=== PATIENT | female | born 1960 | race Caucasian/White ===

== ENCOUNTER 2019-07-09 14:12 | Emergency (ER) | payer MEDICAID, OTHER ==
[~2019-07-09] VITALS: Ht 157.5 cm; Wt 51.7 kg
[2019-07-09 14:24] VITALS: BP 112/89
[2019-07-09] MEDS ORDERED: NACL 0.9% 1,000 ML IV SCH (14:32)
--- NOTE | 2019-07-09 14:33 | NUR ---
59 Y/O F BIB [facility] FOR PAIN 02/23 WITH BILATERAL NEPHROSTOMY TUBE, ABDOMINAL PAIN, UTI DX AT [facility]. PT D/C YESTERDAY FROM [facility] FOR UTI, NEPHROSTOMY PLACEMENT. PT URINE IS DRAINING FROM NEPHROSTOMY TUBES, PT UNABLE TO GIVE UA. PT ON ABX FOR UTI. PT HAS A PORT-A-CATH RT CHEST FOR CHEMOTHERAPY TREATMENT. NKA HX: CERVICAL/LIVER/PELVIC CANCER. PORT-A-CATH RT CHEST.
[2019-07-09] MEDS ORDERED: KETOROLAC 30 MG/ML VIAL IVP ONE (14:35)
[2019-07-09 14:51] LABS: BASOPHILS # (AUTO) 0.1 K/uL (0.00-0.22); BASOPHILS % (AUTO) 0.8 % (0.0-2.0); EOSINOPHILS # (AUTO) 0.3 K/uL (0-0.4); EOSINOPHILS % (AUTO) 2.3 % (0.0-4.0); HEMOGLOBIN 10.9 g/dL (12.0-16.0); LYMPHOCYTES # (AUTO) 1.7 K/uL (2.5-16.5); LYMPHOCYTES % (AUTO) 15.2 % (20.5-51.1); MEAN CORPUSCULAR HEMOGLOBIN 29 pg (27-31); MEAN CORPUSCULAR HGB CONC 33 g/dL (33-37); MEAN CORPUSCULAR VOLUME 86.1 fL (80-94); MONOCYTES % (AUTO) 8.8 % (1.7-9.3); NEUTROPHILS # (AUTO) 8.2 K/uL (1.8-7.7); NEUTROPHILS % (AUTO) 72.9 % (42.2-75.2); PLATELET COUNT (AUTO) 313 K/uL (140-450); RED BLOOD CELL COUNT(AUTO) 3.83 MIL/uL (4.20-5.40); RED CELL DISTRIBUTION WIDTH 15.2 % (11.6-13.7); WHITE BLOOD COUNT (AUTO) 11.3 K/uL (4.8-10.8)
--- NOTE | 2019-07-09 14:57 | NUR ---
PT GIVEN MEDICATION FOR PAIN 02/23, VSS, RESTING COMFORTABLY, FRIEND AT BEDSIDE.
--- NOTE | 2019-07-09 15:06 | NUR ---
PT TO CT SCAN BY WHEELCHAIR.
[2019-07-09 15:18] LABS: ALBUMIN 2.9 g/dL (3.4-5.0); CARBON DIOXIDE 22.4 mmol/L (21-32); CREATININE 1.7 mg/dL (0.6-1.3); POTASSIUM 3.4 mmol/L (3.5-5.1); TOTAL BILIRUBIN 0.3 mg/dL (0.0-1.0)
--- NOTE | 2019-07-09 15:52 | NUR ---
PT TO X-RAY BY WHEELCHAIR
--- NOTE | 2019-07-09 16:28 | NUR ---
MD AT BEDSIDE EXAMINING PATIENT.
[2019-07-09 17:03] VITALS: BP 120/85
--- NOTE | 2019-07-09 17:03 | NUR ---
Patient discharged with v/s stable. Written and verbal after care instructions given and explained. Patient verbalized understanding. Ambulatory with steady gait. All questions addressed prior to discharge. Advised to follow up with PMD.
== END 2019-07-09 17:03 | disposition home or self-care (01) ==
LOC: MED 14:12
DX: R10.31 Right lower quadrant pain (principal); R10.32 Left lower quadrant pain; M54.9 Dorsalgia, unspecified; F17.200 Nicotine dependence, unspecified, uncomplicated; Z43.6 Encounter for attention to other artificial openings of urinary tract; Z98.890 Other specified postprocedural states; Z90.710 Acquired absence of both cervix and uterus; Z85.9 Personal history of malignant neoplasm, unspecified
CPT/HCPCS: 36415; 74176; 80053; 83690; 85025; 96361; 96374; 99284; J1885; J7030

== ENCOUNTER 2019-08-31 21:21 | Emergency (ER) | payer OTHER ==
[~2019-08-31] VITALS: Ht 157.5 cm; Wt 46.7 kg
--- NOTE | 2019-08-31 21:23 | NUR ---
PT KAYLYNN BLS. TAKEN TO BED 7
[2019-08-31 21:28] VITALS: BP 117/76
--- NOTE | 2019-08-31 21:33 | NUR ---
Dr. Newman examining patient.
--- NOTE | 2019-08-31 21:35 | NUR ---
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 PT HAS HX OF CERVICIAL CANCER. PT ALSO CO COUGH AND CONGESTION. LUNG SOUNDS CLEAR. ERMD AT BEDSIDE
[2019-08-31] MEDS ORDERED: KETOROLAC 30 MG/ML VIAL IM ONE (21:40)
--- NOTE | 2019-08-31 21:43 | NUR ---
X-Ray at bedside.
[2019-08-31 22:10] LABS: APPEARANCE,URINE CLEAR (CLEAR); BILIRUBIN,URINE NEGATIVE (NEGATIVE); BLOOD, URINE 3+ (NEGATIVE); COLOR,URINE YELLOW (YELLOW); LEUKOCYTE ESTERASE ,URINE 2+ (NEGATIVE); NITRITE, URINE NEGATIVE (NEGATIVE); UGLUCOSE NEGATIVE (NEGATIVE)
[2019-08-31 22:52] LABS: RBC,URINE TOO NUMEROUS TO COUN /HPF (0-5)
[2019-08-31 22:53] LABS: WBC,URINE TOO MANY TO COUNT /HPF (0-5)
[2019-08-31] MEDS ORDERED: NACL 0.9% 1,000 ML IV ONE (23:15)
[2019-08-31 23:35] LABS: BASOPHILS # (AUTO) 0.2 K/uL (0.00-0.22); BASOPHILS % (AUTO) 2.3 % (0.0-2.0); EOSINOPHILS # (AUTO) 1.1 K/uL (0-0.4); EOSINOPHILS % (AUTO) 12.7 % (0.0-4.0); HEMATOCRIT 27.6 % (36-48); HEMOGLOBIN 9.1 g/dL (12.0-16.0); LYMPHOCYTES # (AUTO) 1.8 K/uL (2.5-16.5); LYMPHOCYTES % (AUTO) 20.2 % (20.5-51.1); MEAN CORPUSCULAR HEMOGLOBIN 29 pg (27-31); MEAN CORPUSCULAR HGB CONC 33 g/dL (33-37); MEAN CORPUSCULAR VOLUME 88.5 fL (80-94); MONOCYTES # (AUTO) 0.8 K/uL (0.8-1.0); MONOCYTES % (AUTO) 9.1 % (1.7-9.3); NEUTROPHILS % (AUTO) 55.7 % (42.2-75.2); PLATELET COUNT (AUTO) 329 K/uL (140-450); RED BLOOD CELL COUNT(AUTO) 3.12 MIL/uL (4.20-5.40); RED CELL DISTRIBUTION WIDTH 15.5 % (11.6-13.7); WHITE BLOOD COUNT (AUTO) 8.9 K/uL (4.8-10.8)
[2019-08-31] MEDS ORDERED: cefTRIAXone 1,000 MG VIAL ONE (23:35)
[2019-08-31 23:50] LABS: ALBUMIN 2.6 g/dL (3.4-5.0); ANION GAP 11.5 (8-16); CARBON DIOXIDE 29.2 mmol/L (21-32); CREATININE 1.1 mg/dL (0.6-1.3); POTASSIUM 3.7 mmol/L (3.5-5.1); TOTAL BILIRUBIN 0.1 mg/dL (0.0-1.0)
[2019-09-01] MEDS ORDERED: MORPHINE SULFATE 4 MG/ML SYR IVP ONE (00:15)
[2019-09-01 00:56] VITALS: BP 110/73
--- NOTE | 2019-09-01 00:58 | NUR ---
Patient discharged with v/s stable. Written and verbal after care instructions given and explained. Patient alert, oriented and verbalized understanding of instructions. Ambulatory with steady gait. All questions addressed prior to discharge. ID band removed. Patient advised to follow up with PMD. Rx of KEFLEX, NAPROSYN AND NORCO given. Patient educated on indication of medication including possible reaction and side effects. Opportunity to ask questions provided and answered.
== END 2019-09-01 00:58 | disposition home or self-care (01) ==
LOC: MED 21:21
DX: N39.0 Urinary tract infection, site not specified (principal); Z85.41 Personal history of malignant neoplasm of cervix uteri; Z85.05 Personal history of malignant neoplasm of liver; Z98.890 Other specified postprocedural states
CPT/HCPCS: 36415; 71045; 80053; 81001; 83605; 85025; 87040; 87086; 96365; 96372; 96375; 99284; J0696; J1885; J2270; J7030; J7060; Q0092

== ENCOUNTER 2019-09-06 21:35 | Inpatient (IN) | payer OTHER ==
[~2019-09-06] VITALS: Ht 157.5 cm; Wt 46.7 kg
[2019-09-06 21:39] VITALS: BP 126/74
--- NOTE | 2019-09-06 21:45 | NUR ---
59 FEMALE COMPLAINS OF LOWER ABDOMINAL PAIN X 1 HOUR AGO. 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 PATIENT STATES NORCO 10MG AND IBUPROFEN 800MG DID NOT HELP 2 HOURS AGO. PATIENT STATES SYMPTOM STARTED AFTER HYSTERECTOMY PERFORMED AND SHE IS HAVING SCHEDULE WITH PRIMARY DOCTOR TO FIX HER DEFECATION FROM VAGINA. PATIENT HAS LEFT AND RIGHT NEPHROSTOMY BAGS WITH SITE GAUZE CLEAN AND DRY. PATIENT AOX4, BREATHING EVEN AND UNLABORED, SKIN WARM AND DRY. PATIENT ON BEDSIDE MONITOR, ERMD AWARE OF PT. PMH - BLADDER, PELVIC, LIVER CANCER ALLERGIES - NKA
--- NOTE | 2019-09-06 21:52 | NUR ---
Dr. De Los Santos examining patient.
[2019-09-06] MEDS ORDERED: NACL 0.9% 1,400 ML IV ONE (21:55)
[2019-09-06] MEDS ORDERED: LEVOFLOXACIN 500 MG/D5W PREMIX 100 ML IV ONE (21:55)
[2019-09-06 22:23] LABS: BASOPHILS # (AUTO) 0.2 K/uL (0.00-0.22); BASOPHILS % (AUTO) 1.8 % (0.0-2.0); EOSINOPHILS # (AUTO) 1.7 K/uL (0-0.4); EOSINOPHILS % (AUTO) 17.6 % (0.0-4.0); HEMOGLOBIN 8.3 g/dL (12.0-16.0); LYMPHOCYTES # (AUTO) 2.1 K/uL (2.5-16.5); LYMPHOCYTES % (AUTO) 21.1 % (20.5-51.1); MEAN CORPUSCULAR HEMOGLOBIN 30 pg (27-31); MEAN CORPUSCULAR HGB CONC 33 g/dL (33-37); MEAN CORPUSCULAR VOLUME 88.9 fL (80-94); MONOCYTES # (AUTO) 0.7 K/uL (0.8-1.0); MONOCYTES % (AUTO) 7.4 % (1.7-9.3); NEUTROPHILS # (AUTO) 5.2 K/uL (1.8-7.7); NEUTROPHILS % (AUTO) 52.1 % (42.2-75.2); PLATELET COUNT (AUTO) 357 K/uL (140-450); RED BLOOD CELL COUNT(AUTO) 2.82 MIL/uL (4.20-5.40); RED CELL DISTRIBUTION WIDTH 15.6 % (11.6-13.7); WHITE BLOOD COUNT (AUTO) 9.9 K/uL (4.8-10.8)
[2019-09-06 22:26] LABS: APPEARANCE,URINE CLOUDY (CLEAR); BILIRUBIN,URINE NEGATIVE (NEGATIVE); BLOOD, URINE 3+ (NEGATIVE); COLOR,URINE YELLOW (YELLOW); LEUKOCYTE ESTERASE ,URINE 2+ (NEGATIVE); NITRITE, URINE NEGATIVE (NEGATIVE); UGLUCOSE NEGATIVE (NEGATIVE)
[2019-09-06 22:40] LABS: ALBUMIN 2.5 g/dL (3.4-5.0); ANION GAP 11.9 (8-16); CARBON DIOXIDE 27.7 mmol/L (21-32); CREATININE 1.1 mg/dL (0.6-1.3); POTASSIUM 3.6 mmol/L (3.5-5.1)
[2019-09-06 22:41] LABS: TOTAL BILIRUBIN 0.1 mg/dL (0.0-1.0)
[2019-09-06 22:43] LABS: RBC,URINE TOO NUMEROUS TO COUN /HPF (0-5); WBC,URINE TOO MANY TO COUNT /HPF (0-5)
[2019-09-06] MEDS ORDERED: MORPHINE SULFATE 4 MG/ML SYR ONE (23:10)
[2019-09-06] MEDS ORDERED: ONDANSETRON 4 MG/2 ML VIAL IVP ONE (23:10)
[2019-09-06] MEDS ORDERED: MORPHINE SULFATE 4 MG/ML SYR IVP ONE (23:10)
[2019-09-06] MEDS ORDERED: cefTRIAXone 2,000 MG in DEXTROSE 5% 100 ML IV ONE (23:20)
--- NOTE | 2019-09-06 23:32 | NUR ---
DAIANA. PT REPORTS 7/10 PAIN.
--- NOTE | 2019-09-06 23:32 | NUR ---
PT AMBULATED TO BATHROOM, STEADY GAIT.
[2019-09-06] MEDS ORDERED: cefTRIAXone 2,000 MG VIAL ONE (23:35)
--- NOTE | 2019-09-06 23:37 | NUR ---
PT TAKEN TO CT VIA WHEELCHAIR.
--- NOTE | 2019-09-06 23:56 | NUR ---
PT RETURN FROM CT
--- NOTE | 2019-09-07 01:00 | NUR ---
PATIENT ALERT AND AWAKE, BREAHTING EVEN AND UNLABORED
[2019-09-07] MEDS ORDERED: HYDR-5092 PO (01:31)
[2019-09-07] MEDS ORDERED: IBUP-2213 PO (01:31)
--- NOTE | 2019-09-07 02:00 | NUR ---
PATIENT RESTING WITH EYES CLOSED, BREATHING EVEN AND UNLABORED
[2019-09-07] MEDS ORDERED: ONDANSETRON 4 MG/2 ML VIAL IVP PRN (02:40)
[2019-09-07] MEDS ORDERED: ACETAMINOPHEN 325 MG TAB PO PRN (02:40)
--- NOTE | 2019-09-07 03:00 | NUR ---
PATIENT RESTING WITH EYES CLOSED, BREATHING EVEN AND UNLABORED
--- NOTE | 2019-09-07 03:45 | NUR ---
Patient will be admitted to care of DR DANIELLE. Admited to [facility]. Will go to room 106B. Belongings list completed. Report to VIRA LOZANO.
--- NOTE | 2019-09-07 03:45 | NUR ---
RECEIVED PATIENT FROM ER VIA WHEELCHAIR. RESPIRATIONS EVEN, UNLABORED. IV SITE 20G NOTED TO LEFT AC PATENT/INTACT. BILATERAL NEPHROSTOMY NOTED. SKIN ASSESSMENT COMPLETED. MRSA SCREEN COMPLETED. PATIENT ORIENTED TO ROOM, STAFF AND CALL LIGHT. PATIENT C/O 9/10 ACHING ABDOMINAL PAIN. WILL MEDICATE ORDERED. NO S/SX ACUTE DISTRESS. CALL LIGHT WITHIN REACH. WILL CONTINUE TO MONITOR.
[2019-09-07] MEDS: NACL 0.9% 1,000 ML IV SCH ×2 (04:08→15:58)
[2019-09-07] MEDS: MORPHINE SULFATE 4 MG/ML SYR IVP PRN ×2 (04:13→10:56)
[2019-09-07] MEDS: metroNIDAZOLE 500 MG/NS PREMIX 100 ML IV SCH ×3 (04:13→20:40)
--- NOTE | 2019-09-07 04:13 | NUR ---
PATIENT C/O ACHING ABDOMINAL PAIN 02/23. MEDICATED ORDERED. PROVIDED A LOW STIMULI ENVIRONMENT. PATIENT REPOSITIONED FOR COMFORT. CALL LIGHT WITHIN REACH. WILL CONTINUE TO MONITOR.
[2019-09-07 04:23] VITALS: BP 116/67
--- NOTE | 2019-09-07 05:53 | NUR ---
PATIENT ASLEEP AND IN STABLE CONDITION. NO C/O PAIN. NO S/SX ACUTE DISTRESS. CALL LIGHT WITHIN REACH. WILL CONTINUE TO MONITOR.
--- NOTE | 2019-09-07 06:41 | NUR ---
MADE ROUNDS. PATIENT ASLEEP AND IN STABLE CONDITION. NO C/O PAIN. NO S/SX ACUTE DISTRESS. CALL LIGHT WITHIN REACH. WILL CONTINUE TO MONITOR.
--- NOTE | 2019-09-07 07:00 | NUR ---
RECEIVED PT. FROM [facility]ACKLER NURSECHINA. PT. IS AWAKE AND IN BED. NO SIGNS OF DISTRESS NOTED. IV LINE ON THE LEFT AC 20G WITH NS RUNNING AT 75ML/HR. IV SITE IS PATENT AND FLUSHES WELL. BILATERAL NEPHROSTOMY NOTED WITH CLOUDY YELLOW URINE OUTPUT, NEPHROSTOMY BAGS ATTACHED TO PT'S LEGS. PT. IS ON ROOM AIR WITH O2 STAT VALUE OF 99%. CALL LIGHT WITHIN REACH. POC DISCUSSED WITH PATIENT. WILL CONTINUE TO MONITOR.
--- NOTE | 2019-09-07 07:25 | NUR ---
ENDORSE PT. TO NURSE MIDWIFE NURSE, MEIR, FOR CONTINUITY OF CARE.
--- NOTE | 2019-09-07 07:26 | NUR ---
ENDORSED PATIENT IN STABLE CONDITION TO AM SHIFT NURSE FOR CONTINUITY OF CARE.
--- NOTE | 2019-09-07 08:42 | NUR ---
PATIENT HAS BEEN SCREENED AND CATEGORIZED MODERATE NUTRITION RISK. PATIENT WILL BE SEEN WITHIN 3-5 DAYS OF ADMISSION. 09/09/19 09/11/[address]
--- NOTE | 2019-09-07 10:50 | NUR ---
PT. COMPLAINS OF PAIN 10/10 FROM BACK. WILL MEDICATE WITH PRN MORPHINE IVP. WILL CONTINUE TO MONITOR.
--- NOTE | 2019-09-07 11:00 | NUR ---
MEDICATED PT. WITH MORPHINE IVP. BP 118/78 AND HR 74. WILL CONTINUE TO MONITOR.
--- NOTE | 2019-09-07 13:07 | NUR ---
Manager Enrollment Note: Basic Screen: Yes High Risk DC Screen Ophiem: DANDY Santamaria Relationship: SISTER Pre-Admission Living Arrangements: Lives with Other Prior ADL Independent Current Home Health Name/Tel: N/A Current DME/02 Name/Tel: N/A Current Hospice Name/Tel: N/A Current Dialysis Name/Tel: N/A Healthcare Decision Maker: Patient Advance Directive No Physician Orders for Life Sustaining Treatment Form No Patient/Family Have Educational Needs No Information Taught: Community Resources Person Taught: Patient Teaching Tools: Verbal Factors Affecting Learning: None Participation Level: Active Evaluation: Verbalizes Understanding Needs Additional Education: No Discipline: Case Mgt/Social Svcs Tentative Discharge Plan/Destination: No Needs Identified Will require assistance post discharge: No Referred to Repeater Operator: No Tentative Discharge Plan Summary: Patient is a 59-year-old female admitted for UTI. PAtient has PMHX of cancer (cervical, pelvic, and liver). Patient was admitted from home where she lives with her mother and sisters. Patient reported that her sisters assist her cooking, dressing herself, and showering. Patient stated she is in the process of applying for IHSS. Patient reports no history of substance abuse, and no history of mental health. SW inquired about PMHX of cancer, and patient stated that her oncologist is Dr. Morales. Patient's tenative discharge plan is to return home. No further needs identified. Signature: FRANCES Gibbs Date: Sep 07, 2019 Time: 13:06
--- NOTE | 2019-09-07 15:27 | NUR ---
DC PLANNIN YRS OLD FEMALE PATIENT WAS ADMITTED FROM HOME WITH A DX OF UTI AND PROCTITIS. 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 STARTED IV FLAGYL, IV LEVAQUIN, IVF, AND PAIN CONTROL. BLOOD AND URINE CULTURE PENDING. PT HAS OUTPATIENT PET/CT FOR ROPE CLEANER PLANNING PENDING FOR THIS Friday. DC PLAN TO GO HOME WHEN STABLE. PT HAS PCP DR JOSESITO CHAN [phone] LATONIA ALEXANDER [phone] F/U APPOINTMENT WILL BE MADE WITH SUPERVISOR TELEVISION CHASSIS REPAIR . CM TO FOLLOW
[2019-09-07 16:00] VITALS: BP 94/50
--- NOTE | 2019-09-07 18:00 | NUR ---
PT. COMPLAINS OF PAIN 6/10 FROM HER BACK RADIATING TO HER ABDOMEN. WILL MEDICATE WITH NORCO PO. WILL CONTINUE TO MONITOR.
[2019-09-07] MEDS: HYDROcodone/APAP 10/325 MG 1 TAB TAB PO PRN ×2 (18:10→21:55)
--- NOTE | 2019-09-07 18:10 | NUR ---
NORCO PRN PO GIVEN. BP 107/64, HR 74. NO SIGNS OF DISTRESS NOTED. WILL CONTINUE TO MONITOR.
--- NOTE | 2019-09-07 19:10 | NUR ---
RECD. RESTING IN BED, AWAKE, A/OX4. RESPIRATION EVEN AND UNLABORED. IV OF NS AT 75 ML/HR INFUSING, LEFT AC G20. WITH NEPHROSTOMY TUBE DRAINING MINIMAL AMOUNT OF YELLOW URINE. SAFETY MEASURES ENFORCED. BED IN THE LOWEST POSITION, CALL LIGHT IN REACH. PLAN OF CARE FOR THE SHIFT DISCUSSED. VERBALIZED UNDERSTANDING. DENIES PAIN 0/10.
--- NOTE | 2019-09-07 19:25 | NUR ---
Patient's Plan of Care was discussed and reviewed with KARISSA: MEIR. WILL CONTINUE TO MONITOR.
[2019-09-07 20:00] VITALS: BP 94/54
--- NOTE | 2019-09-07 20:40 | NUR ---
ROBYN FLAGYL NOW INFUSING PER ORDERS. ALL SAFETY MEASURES ARE IN PLACE. WILL CONTINUE TO MONITOR.
--- NOTE | 2019-09-07 21:00 | NUR ---
WANTS MORPHINE BUT BP IS IN THE LOW SIDE, 94/54. PILLOWS GIVEN FOR COMFORT, REPOSITIONED. WILL CALL MD FOR ANOTHER PAIN MEDICATION THAT WILL NOT LOWER BP.
--- NOTE | 2019-09-07 21:20 | NUR ---
INFORMED DR. KAISER PATIENT PO PAIN MED IS NOT YET DUE, IF HE CAN ORDER ANOTHER IV PAIN MEDICATION. STATED PATIENT HAS KIDNEY PROBLEM AND HE CANNOT ORDER ANOTHER.
--- NOTE | 2019-09-07 23:00 | NUR ---
RESTING COMFORTABLY IN BED, NO COMPLAINT OF PAIN AFTER ONE HOUR, MEDICATION OF NORCO GIVEN.
[2019-09-08] VITALS: BP 102/52
--- NOTE | 2019-09-08 | NUR ---
SLEEPING COMFORTABLY IN BED.
[2019-09-08] MEDS: NACL 0.9% 1,000 ML IV SCH ×2 (01:03→05:18)
--- NOTE | 2019-09-08 02:00 | NUR ---
ASSISTED OUT OF BED TO GO TO [facility] TO HAVE BM. HAD SMALL AMOUNT OF FORMED BM.
--- NOTE | 2019-09-08 04:00 | NUR ---
OFFERED JOSE BUT STATED SHE IS STILL OK. WENT BACK TO SLEEP.
[2019-09-08] MEDS: metroNIDAZOLE 500 MG/NS PREMIX 100 ML IV SCH (04:35)
--- NOTE | 2019-09-08 07:00 | NUR ---
CONDITION REMAIN STABLE. WILL ENDORSED TO AM SHIFT NURSE FOR CONTINUITY OF CARE.
--- NOTE | 2019-09-08 07:01 | NUR ---
RECEIVED REPORT FROM PICTURE HANGER NURSE, MEIR. PT IS RESTING IN BED, AROUSABLE TO VOICE. A&Ox 4. RESPIRATIONS ARE EVEN AND UNLABORED, BREATHING TO ROOM AIR. IV IS PATENT AND INTACT, AND INFUSING PER MD ORDERS. SKIN IS INTACT. REVIEWED PLAN OF CARE WITH PATIENT. NO DISTRESS NOTED. SAFETY MEASURES IN PLACE; BED IN LOW POSITION, CALL LIGHT WITHIN REACH. WILL CONTINUE TO MONITOR.
[2019-09-08 07:42] LABS: ANION GAP 10.6 (8-16); CREATININE 0.9 mg/dL (0.6-1.3); POTASSIUM 3.6 mmol/L (3.5-5.1)
[2019-09-08 07:44] LABS: HEMATOCRIT 25.1 % (36-48); HEMOGLOBIN 8.3 g/dL (12.0-16.0); MEAN CORPUSCULAR HEMOGLOBIN 30 pg (27-31); MEAN CORPUSCULAR HGB CONC 33 g/dL (33-37); MEAN CORPUSCULAR VOLUME 89.1 fL (80-94); PLATELET COUNT (AUTO) 358 K/uL (140-450); RED BLOOD CELL COUNT(AUTO) 2.82 MIL/uL (4.20-5.40); RED CELL DISTRIBUTION WIDTH 15.2 % (11.6-13.7); WHITE BLOOD COUNT (AUTO) 7.8 K/uL (4.8-10.8)
[2019-09-08 07:58] LABS: MAGNESIUM 1.5 mg/dL (1.8-2.4); PHOSPHORUS 3.7 mg/dL (2.5-4.9)
[2019-09-08 08:00] VITALS: BP 100/54
--- NOTE | 2019-09-08 09:00 | NUR ---
PT IS IN BED RESTING IN BED. NO DISTRESS NOTED. PT COMPLAINS OF PAIN ONLY WHEN WE WALK INTO THE ROOM. PT COMPLAINS OF LOWER ABDOMINAL PAIN. PT'S BLOOD PRESSURE IS LOW. PT WANTS MORPHINE. NO DISTRESS NOTED. WILL CONTINUE TO MONITOR. CALL LIGHT IN REACH.
[2019-09-08 09:13] LABS: EOSINOPHILS % (MANUAL) 18 % (0-4); LYMPHOCYTES % (MANUAL) 12 % (20-46); MONOCYTES % (MANUAL) 6 % (5-12)
[2019-09-08] MEDS ORDERED: MAG SULF 2000 MG/WATER PREMIX 50 ML IV SCH (10:31)
[2019-09-08] MEDS ORDERED: MIDODRINE 5 MG TAB PO SCH (10:31)
--- NOTE | 2019-09-08 11:23 | NUR ---
PCP Appointment: LO contacted Dr. Ethan Hassan's office and spoke to Lyn [phone]. Per Lyn, clinic will contact patient on 09/09/2019 to schedule appointment. LO also contacted oncologist Dr. Mian Stevenson on 09/16/2019 at 1130 @ [facility] [address] Do[address]. [address] [place] [id number].
--- NOTE | 2019-09-08 11:30 | NUR ---
PT IS AWAKE AND SITTING UP IN BED. NO DISTRESS NOTED. SAFETY MEASURES IN PLACE; CALL LIGHT WITHIN REACH, BED IN LOW POSITION. WILL CONTINUE TO MONITOR.
[2019-09-08] MEDS ORDERED: CIPR500T4 PO (11:58)
[2019-09-08] MEDS ORDERED: METR250T2 PO (11:58)
[2019-09-08] MEDS: HYDROcodone/APAP 10/325 MG 1 TAB TAB PO PRN (13:25)
--- NOTE | 2019-09-08 15:02 | NUR ---
GAVE PT DISCHARGE INSTRUCTIONS, PT VERBALIZED UNDERSTANDING. PT TO FOLLOW UP WITH PCP, INFLUENZA AND PNEUMOCOCCAL VACCINE TO BE GIVEN AT PCP VISIT. IV WAS REMOVED, CATHETER INTACT. ARM BANDS REMOVED. PT CALLED SISTER FOR PICKUP. PT WAS TAKEN IN A WHEELCHAIR TO HER CAR. PT COMPLAINED OF ABDOMINAL PAIN, WANTED PAIN MEDICATION. NORCO GIVEN. PT DID NOT WANT TO STAY FOR PAIN REEVALUATION. MEDICATION INSTRUCTIONS WERE GIVEN. PT'S BELONGINGS WERE WITH HER. PT STABLE AT DISCHARGE. PRESCRIPTION GIVEN TO PT.
[2019-09-08] MEDS ORDERED: LEVOFLOXACIN 750 MG/D5W PREMIX 150 ML IV SCH (23:00)
== END 2019-09-08 13:50 | disposition home or self-care (01) | DRG 463 ==
LOC: MED 21:35 → MTU 09-07 02:42
PROVIDERS: ADMIT Internal Medicine Pulmonary Disease; ATTEND Internal Medicine Pulmonary Disease
DX: N39.0 Urinary tract infection, site not specified (principal); E44.0 Moderate protein-calorie malnutrition; N82.3 Fistula of vagina to large intestine; F17.210 Nicotine dependence, cigarettes, uncomplicated; R73.9 Hyperglycemia, unspecified; Z68.1 Body mass index [BMI] 19.9 or less, adult; Z85.05 Personal history of malignant neoplasm of liver; Z85.41 Personal history of malignant neoplasm of cervix uteri; Z85.53 Personal history of malignant neoplasm of renal pelvis; Z90.710 Acquired absence of both cervix and uterus
CPT/HCPCS: 36415; 80048; 80053; 81001; 83735; 84100; 85025; 87040; 87081; 87086; 96365; 96375; 99285; J0696; J1956; J2270; J2405; J3475; J3490; J7030; Q9967

== ENCOUNTER 2019-10-05 20:17 | Emergency (ER) | payer OTHER ==
[~2019-10-05] VITALS: Ht 157.5 cm; Wt 48.1 kg
[~2019-10-05 20:17] MED LIST: CIPR500T4 PO; HYDR-5092 PO; IBUP-2213 PO; METR250T2 PO
[2019-10-05 20:19] VITALS: BP 118/75
--- NOTE | 2019-10-05 20:33 | NUR ---
PT TAKEN TO BED 11
--- NOTE | 2019-10-05 20:53 | NUR ---
59 YO FEMALE NEEDS DRESSING CHANGE FOR HER KIDNEY TUBES THAT WERE PLACED IN JUL 2019. PT STATES THAT SHE HAS NO PAIN, SISTER DID NOTICE SOME PUS ON THE RIGHT SIDE BUT DID NOT LOOK AT THE RIGHT SIDE. NO REDNESS OR TENDERNESS. PT HAD A NURSE THAT CAME TO [facility] DRESSINGS BUT SHE NO LONGER COMES. PT HAS EXTENSIVE CANCER HISTORY. PT TAKING NORCO AT THIS TIME.
--- NOTE | 2019-10-05 20:56 | NUR ---
Dr. Newman examining patient.
--- NOTE | 2019-10-05 21:14 | NUR ---
PTS WOUNDS WERE CLEANED WITH NS. DRESSING WAS CHANGED TO NON ADHERENT GAUZE AND TAPPED ON ALL 4 SIDES. PT DENIED ANY DISCOMFORT
[2019-10-05 21:39] LABS: BILIRUBIN,URINE 1+ (NEGATIVE); BLOOD, URINE 3+ (NEGATIVE); COLOR,URINE YELLOW (YELLOW); LEUKOCYTE ESTERASE ,URINE 2+ (NEGATIVE); NITRITE, URINE NEGATIVE (NEGATIVE); UGLUCOSE NEGATIVE (NEGATIVE)
[2019-10-05 21:40] LABS: APPEARANCE,URINE HAZY (CLEAR)
[2019-10-05 22:13] LABS: RBC,URINE 11-20 (MOD) /HPF (0-5); WBC,URINE TOO MANY TO COUNT /HPF (0-5)
[2019-10-05 22:19] VITALS: BP 119/72
== END 2019-10-05 22:18 | disposition home or self-care (01) ==
LOC: MED 20:17
DX: N39.0 Urinary tract infection, site not specified (principal); C76.0 Malignant neoplasm of head, face and neck; C76.3 Malignant neoplasm of pelvis; C22.8 Malignant neoplasm of liver, primary, unspecified as to type; F17.210 Nicotine dependence, cigarettes, uncomplicated; Z48.00 Encounter for change or removal of nonsurgical wound dressing; Z08 Encounter for follow-up examination after completed treatment for malignant neoplasm; Z93.6 Other artificial openings of urinary tract status; Z90.710 Acquired absence of both cervix and uterus; Z98.890 Other specified postprocedural states; Z79.899 Other long term (current) drug therapy
CPT/HCPCS: 81001; 87086; 87186; 99283

== ENCOUNTER 2020-01-17 00:55 | Emergency (ER) | payer OTHER ==
[~2020-01-17] VITALS: Ht 157.5 cm; Wt 47.2 kg
[2020-01-17 01:14] VITALS: BP 113/70
[2020-01-17 02:21] VITALS: BP 113/70
== END 2020-01-17 02:15 | disposition home or self-care (01) ==
LOC: MED 00:55
DX: N99.522 Malfunction of incontinent external stoma of urinary tract (principal); Z98.890 Other specified postprocedural states; Z79.899 Other long term (current) drug therapy; Z85.41 Personal history of malignant neoplasm of cervix uteri; Z85.05 Personal history of malignant neoplasm of liver
CPT/HCPCS: 99281

== ENCOUNTER 2020-02-01 13:12 | Emergency (ER) | payer OTHER ==
[~2020-02-01] VITALS: Ht 165.1 cm; Wt 46.7 kg
[2020-02-01 13:27] VITALS: BP_SYST 113; BP_DIAS 7; BP_DIAS 70
[2020-02-01 15:37] LABS: BASOPHILS # (AUTO) 0.2 K/uL (0.00-0.22); BASOPHILS % (AUTO) 2.3 % (0.0-2.0); EOSINOPHILS % (AUTO) 12.6 % (0.0-4.0); HEMATOCRIT 27.5 % (36-48); HEMOGLOBIN 8.8 g/dL (12.0-16.0); LYMPHOCYTES # (AUTO) 1.8 K/uL (2.5-16.5); LYMPHOCYTES % (AUTO) 22.7 % (20.5-51.1); MEAN CORPUSCULAR HEMOGLOBIN 27 pg (27-31); MEAN CORPUSCULAR HGB CONC 32 g/dL (33-37); MEAN CORPUSCULAR VOLUME 85.3 fL (80-94); MONOCYTES # (AUTO) 0.5 K/uL (0.8-1.0); MONOCYTES % (AUTO) 7.1 % (1.7-9.3); NEUTROPHILS # (AUTO) 4.3 K/uL (1.8-7.7); NEUTROPHILS % (AUTO) 55.3 % (42.2-75.2); PLATELET COUNT (AUTO) 342 K/uL (140-450); RED BLOOD CELL COUNT(AUTO) 3.23 MIL/uL (4.20-5.40); RED CELL DISTRIBUTION WIDTH 16.8 % (11.6-13.7); WHITE BLOOD COUNT (AUTO) 7.8 K/uL (4.8-10.8)
[2020-02-01 15:39] LABS: APPEARANCE,URINE CLOUDY (CLEAR); BILIRUBIN,URINE NEGATIVE (NEGATIVE); BLOOD, URINE 3+ (NEGATIVE); COLOR,URINE YELLOW (YELLOW); LEUKOCYTE ESTERASE ,URINE 3+ (NEGATIVE); NITRITE, URINE POSITIVE (NEGATIVE); UGLUCOSE NEGATIVE (NEGATIVE)
[2020-02-01] MEDS ORDERED: MORPHINE SULFATE 4 MG/ML SYR IVP ONE (15:55)
[2020-02-01 16:00] LABS: ALBUMIN 2.7 g/dL (3.4-5.0); ANION GAP 12.2 (8-16); CARBON DIOXIDE 27.2 mmol/L (21-32); POTASSIUM 3.4 mmol/L (3.5-5.1); TOTAL BILIRUBIN 0.2 mg/dL (0.0-1.0)
[2020-02-01 16:28] LABS: RBC,URINE 20-50 /HPF (0-5); WBC,URINE 60-80 /HPF (0-5)
[2020-02-01 16:52] VITALS: BP 113/70
== END 2020-02-01 16:53 | disposition home or self-care (01) ==
LOC: MED 13:12
DX: R10.30 Lower abdominal pain, unspecified (principal); Z02.89 Encounter for other administrative examinations
CPT/HCPCS: 36415; 80053; 81001; 85025; 87086; 96374; 99283; J2270

== ENCOUNTER 2020-03-04 16:05 | Emergency (ER) | payer OTHER ==
[~2020-03-04] VITALS: Ht 157.5 cm; Wt 47.2 kg
[2020-03-04 16:16] VITALS: BP 94/61
--- NOTE | 2020-03-04 16:19 | NUR ---
PT AMB TO BED 6
[2020-03-04] MEDS ORDERED: MORPHINE SULFATE 4 MG/ML SYR IVP STA (16:21)
[2020-03-04] MEDS ORDERED: ONDANSETRON 4 MG/2 ML VIAL IVP STA (16:21)
[2020-03-04] MEDS ORDERED: NACL 0.9% 1,000 ML IV STA (16:21)
--- NOTE | 2020-03-04 16:34 | NUR ---
C/O VAGINAL BLEEDING , N/V, LOWER ABDOMINAL PAIN.PT AOX4 , AFIBRILE , AMBULATORY WITH STEADY GAIT , PINK PALPEBRAL CONJUNCTIVA ,ANICTERIC SCLERA , SCE , FLAT SOFT ABDOMEN WITH BILATERAL NEPHROSTOMY TUBE DRAINING IN NEPHRO BAG WITH CLOUDY URINE. MED HX: PELVIC CANCER, CERVICAL CANCER, STEVE NEPHROSTOMY
[2020-03-04 16:50] LABS: BASOPHILS # (AUTO) 0.1 K/uL (0.00-0.22); EOSINOPHILS # (AUTO) 0.5 K/uL (0-0.4); EOSINOPHILS % (AUTO) 5.5 % (0.0-4.0); HEMATOCRIT 30.7 % (36-48); HEMOGLOBIN 10.2 g/dL (12.0-16.0); LYMPHOCYTES # (AUTO) 1.8 K/uL (2.5-16.5); LYMPHOCYTES % (AUTO) 20.9 % (20.5-51.1); MEAN CORPUSCULAR HEMOGLOBIN 28 pg (27-31); MEAN CORPUSCULAR HGB CONC 33 g/dL (33-37); MEAN CORPUSCULAR VOLUME 85.1 fL (80-94); MONOCYTES # (AUTO) 0.6 K/uL (0.8-1.0); MONOCYTES % (AUTO) 7.4 % (1.7-9.3); NEUTROPHILS # (AUTO) 5.7 K/uL (1.8-7.7); NEUTROPHILS % (AUTO) 65.2 % (42.2-75.2); PLATELET COUNT (AUTO) 351 K/uL (140-450); RED CELL DISTRIBUTION WIDTH 16.6 % (11.6-13.7); WHITE BLOOD COUNT (AUTO) 8.7 K/uL (4.8-10.8)
[2020-03-04 17:01] LABS: PROTHROMBIN TIME 9.6 secs (10.8-13.4)
[2020-03-04 17:04] LABS: ALBUMIN 2.5 g/dL (3.4-5.0); ANION GAP 13.7 (8-16); CARBON DIOXIDE 24.4 mmol/L (21-32); CREATININE 1.1 mg/dL (0.6-1.3); POTASSIUM 3.1 mmol/L (3.5-5.1); TOTAL BILIRUBIN 0.2 mg/dL (0.0-1.0)
[2020-03-04 17:26] LABS: APPEARANCE,URINE CLOUDY (CLEAR); COLOR,URINE YELLOW (YELLOW)
[2020-03-04 17:27] LABS: BILIRUBIN,URINE NEGATIVE (NEGATIVE); BLOOD, URINE 3+ (NEGATIVE); LEUKOCYTE ESTERASE ,URINE 3+ (NEGATIVE); NITRITE, URINE POSITIVE (NEGATIVE); UGLUCOSE NEGATIVE (NEGATIVE)
[2020-03-04 17:30] LABS: RBC,URINE 20-50 /HPF (0-5)
[2020-03-04 17:31] LABS: WBC,URINE 80-100 /HPF (0-5)
--- NOTE | 2020-03-04 17:54 | NUR ---
PT COMFORTABLE IN BED SIDE RAILS UP AND LOCK.
--- NOTE | 2020-03-04 18:00 | NUR ---
DR SANTORO AT BEDSIDE REEVALUATING PT.
[2020-03-04 18:27] VITALS: BP 110/61
--- NOTE | 2020-03-04 18:29 | NUR ---
Patient discharged with v/s stable. Written and verbal after care instructions given and explained regarding uti. Patient alert, oriented and verbalized understanding of instructions. Ambulatory with steady gait. All questions addressed prior to discharge. ID band removed. Patient advised to follow up with PMD. Rx of ciprofloxacin given. Patient educated on indication of medication including possible reaction and side effects. Opportunity to ask questions provided and answered.
== END 2020-03-04 18:29 | disposition home or self-care (01) ==
LOC: MED 16:05
DX: N39.0 Urinary tract infection, site not specified (principal); D53.9 Nutritional anemia, unspecified; Z85.41 Personal history of malignant neoplasm of cervix uteri; Z51.11 Encounter for antineoplastic chemotherapy
CPT/HCPCS: 36415; 80053; 81001; 83690; 85025; 85610; 87086; 96361; 96374; 96375; 99284; J2270; J2405; J7030; 87186

== ENCOUNTER 2020-05-19 12:51 | Emergency (ER) | payer OTHER, SELFPAY ==
[~2020-05-19] VITALS: Ht 157.5 cm; Wt 50.3 kg
[~2020-05-19 12:51] MED LIST changes: +METR-520 PO; -METR250T2 PO
[2020-05-19 13:05] VITALS: BP 128/75
--- NOTE | 2020-05-19 13:12 | NUR ---
C/O COUGH, RUNNY NOSE, BODY ACHE X 3 DAYS. BROTHER IN LAW HAD COVID TESTED +. PMH: CEVICAL CANCER & SERGERYX TWICE, HYSTERECTOMY
--- NOTE | 2020-05-19 13:40 | NUR ---
COVID SWAB COLLECTED, SENT TO LAB.
[2020-05-19 13:46] VITALS: BP 128/75
--- NOTE | 2020-05-19 13:46 | NUR ---
Patient discharged with v/s stable. Written and verbal after care instructions given and explained. Patient alert, oriented and verbalized understanding of instructions. Ambulatory with steady gait. All questions addressed prior to discharge. ID band removed. Patient advised to follow up with PMD. Rx of ALBUTEROL, IBUPROFEN & PROMETHAZINE given. Patient educated on indication of medication including possible reaction and side effects. Opportunity to ask questions provided and answered.
== END 2020-05-19 13:46 | disposition home or self-care (01) ==
LOC: MED 12:51
DX: R05 Cough (principal); M79.10 Myalgia, unspecified site; R09.89 Other specified symptoms and signs involving the circulatory and respiratory systems; Z20.828 Contact with and (suspected) exposure to other viral communicable diseases; Z85.9 Personal history of malignant neoplasm, unspecified; Z79.899 Other long term (current) drug therapy
CPT/HCPCS: 99283; U0003

== ENCOUNTER 2020-10-28 05:53 | Emergency (ER) | payer OTHER, SELFPAY ==
[~2020-10-28] VITALS: Ht 157.5 cm; Wt 47.6 kg
[~2020-10-28 05:53] MED LIST changes: +ACET-9525 PO; +CEPH500C16 PO; -CIPR500T4 PO; -HYDR-5092 PO; -IBUP-2213 PO; -METR-520 PO
[2020-10-28 05:58] VITALS: BP 116/75
--- NOTE | 2020-10-28 06:06 | NUR ---
PATIENT AMBULATED TO RESTROOM WITH STEADY GAIT.
--- NOTE | 2020-10-28 06:11 | NUR ---
PATIENT BIB SELF FOR 10/10 SUPRAPUBIC/PELVIC PAIN X 2 DAYS. PATIENT REPORTS SHE HAS A DX OF PELVIC CANCER X 2 YEARS NOW AND IS CURRENTLY RECIEVING CHEMOTHERAPY, LAST ADMINISTERED 10/25/20. PATIENT REPORTS DIARRHEA. PATIENT DENIES FEVER, CHILLS, N/V. PATIENT ALSO NOTED WITH BILATERAL NEPHROSTOMY TUBES X 4 MONTHS. PATIENT REPORTS THIS PAIN IS NOT NEW AND IS TYPICALLY RELATED TO HER PELVIC CANCER. LAST BM 10/27/20. PATIENT REPORTS SHE HAS NOT BEEN ABLE TO GET HER PAIN MEDICATION LATELY. SEE COMPLETE ASSESSMENT FOR FURTHER DETAILS. MED HX: PELVIC CANCER ALLERGIES: NKA
--- NOTE | 2020-10-28 06:26 | NUR ---
ERMD AT BEDSIDE.
[2020-10-28] MEDS ORDERED: MORPHINE SULFATE 4 MG/ML SYR IM ONE (06:30)
[2020-10-28] MEDS ORDERED: ONDANSETRON 4 MG ODT PO ONE (06:30)
[2020-10-28] MEDS ORDERED: CEPH-588 PO (06:34)
[2020-10-28] MEDS ORDERED: cephALEXin 500 MG CAP PO ONE (06:35)
[2020-10-28 07:02] VITALS: BP 116/75
== END 2020-10-28 07:02 | disposition home or self-care (01) ==
LOC: MED 05:53
DX: N39.0 Urinary tract infection, site not specified (principal); G89.29 Other chronic pain; R10.2 Pelvic and perineal pain; Z85.53 Personal history of malignant neoplasm of renal pelvis
CPT/HCPCS: 81002; 96372; 99283; J2270; Q0162

== ENCOUNTER 2020-11-06 03:05 | Emergency (ER) | payer OTHER, SELFPAY ==
[~2020-11-06] VITALS: Ht 160 cm; Wt 50.3 kg
[~2020-11-06 03:05] MED LIST changes: +CEPH-588 PO
[2020-11-06 03:26] VITALS: BP 110/72
--- NOTE | 2020-11-06 03:35 | NUR ---
PATIENT BIB SELF FOR C/O 10/10 LOWER PELVIC PAIN AND URINARY BURNING X 3 DAYS. PATIENT REPORTS HAVING DISCHARGE THAT IS DARK BROWN AND HAS BURNING IN THE VAGINA. PATIENT TOOK NORCO AT 2100 BUT WITH NO RELIEF. PMH: CERVICAL CANCER, UTI, HYSTERECTOMY ALLERGIES: NKA
--- NOTE | 2020-11-06 03:36 | NUR ---
ERMD at bedside for examination
[2020-11-06] MEDS ORDERED: ONDANSETRON 4 MG/2 ML VIAL IVP ONE (03:45)
[2020-11-06] MEDS ORDERED: NACL 0.9% 500 ML IV ONE (03:45)
[2020-11-06] MEDS ORDERED: MORPHINE SULFATE 4 MG/ML SYR IVP ONE (03:45)
[2020-11-06 04:02] LABS: HEMOGLOBIN 8.4 g/dL (12.0-16.0); RED CELL DISTRIBUTION WIDTH 17.2 % (11.6-13.7); WHITE BLOOD COUNT (AUTO) 8.8 K/uL (4.8-10.8)
[2020-11-06 04:06] LABS: BASOPHILS # (AUTO) 0.1 K/uL (0.00-0.22); BASOPHILS % (AUTO) 0.8 % (0.0-2.0); EOSINOPHILS # (AUTO) 0.6 K/uL (0-0.4); EOSINOPHILS % (AUTO) 6.5 % (0.0-4.0); HEMATOCRIT 25.2 % (36-48); LYMPHOCYTES # (AUTO) 2.1 K/uL (2.5-16.5); LYMPHOCYTES % (AUTO) 23.5 % (20.5-51.1); MEAN CORPUSCULAR HEMOGLOBIN 27 pg (27-31); MEAN CORPUSCULAR HGB CONC 34 g/dL (33-37); MEAN CORPUSCULAR VOLUME 79.3 fL (80-94); MONOCYTES # (AUTO) 0.7 K/uL (0.8-1.0); MONOCYTES % (AUTO) 8.2 % (1.7-9.3); NEUTROPHILS # (AUTO) 5.4 K/uL (1.8-7.7); PLATELET COUNT (AUTO) 403 K/uL (140-450); RED BLOOD CELL COUNT(AUTO) 3.18 MIL/uL (4.20-5.40)
[2020-11-06 04:23] LABS: ALBUMIN 2.6 g/dL (3.4-5.0); ANION GAP 10.2 (8-16); CARBON DIOXIDE 28.3 mmol/L (21-32); POTASSIUM 3.5 mmol/L (3.5-5.1); TOTAL BILIRUBIN 0.1 mg/dL (0.0-1.0)
[2020-11-06] MEDS ORDERED: SULF-58 PO (04:42)
[2020-11-06 04:53] VITALS: BP 115/69
--- NOTE | 2020-11-06 04:53 | NUR ---
Patient discharged with v/s stable. Written and verbal after care instructions given and explained. Patient alert, oriented and verbalized understanding of instructions. Ambulatory with steady gait. All questions addressed prior to discharge. ID band removed. Patient advised to follow up with PMD. Rx of bactrim 400-80mg tab given. Patient educated on indication of medication including possible reaction and side effects. Opportunity to ask questions provided and answered.
[2020-11-06 05:55] LABS: APPEARANCE,URINE CLOUDY (CLEAR); BILIRUBIN,URINE NEGATIVE (NEGATIVE); BLOOD, URINE NEGATIVE (NEGATIVE); COLOR,URINE YELLOW (YELLOW); LEUKOCYTE ESTERASE ,URINE 3+ (NEGATIVE); NITRITE, URINE NEGATIVE (NEGATIVE); PH,URINE >=9.0 (5.0-9.0); UGLUCOSE NEGATIVE (NEGATIVE)
[2020-11-06 06:04] LABS: RBC,URINE 0-5 /HPF (0-5)
[2020-11-06 06:05] LABS: WBC,URINE 20-60 /HPF (0-5)
== END 2020-11-06 04:53 | disposition home or self-care (01) ==
LOC: MED 03:05
DX: N39.0 Urinary tract infection, site not specified (principal); R10.2 Pelvic and perineal pain; Z85.42 Personal history of malignant neoplasm of other parts of uterus; Z90.710 Acquired absence of both cervix and uterus
CPT/HCPCS: 36415; 80053; 81001; 85025; 87086; 87186; 96361; 96374; 96375; 99284; J2270; J2405; J7030

== ENCOUNTER 2020-11-16 20:55 | Emergency (ER) | payer OTHER ==
[~2020-11-16] VITALS: Ht 160 cm; Wt 49.4 kg
[~2020-11-16 20:55] MED LIST changes: +SULF-58 PO
[2020-11-16 21:08] VITALS: BP 127/78
--- NOTE | 2020-11-16 21:10 | NUR ---
PT BIB SELF FOR C/O PELVIC PAIN X 3 DAYS. PT REPORTS PAIN, BURNING AND FREQUENCY WITH URINATION. PT REPORTS HX OF PELVIC CANCER AND UTI. PT TAKES MOTRIN, IBUPROFEN AND NORCO AT HOME, HOWEVER SHE IS HAVING BREAKTHROUGH PAIN. REPORTS BLEEDING X 3 DAYS. PT REPORTS SHE HAS INFORMED HER ONCOLOGIST REGARDING BLEEDING, STATING IT IS RELATED TO HER DX AND CURRENT TX REGIMEN OF CHEMOTHERAPY. SKIN IS WARM, DRY AND INTACT. MED HX: PELVIC CA ALLERGIES: NKA
--- NOTE | 2020-11-16 21:38 | NUR ---
PT PROVIDED URINE SAMPLE FROM NEPHROSTOMY TUBE. SAMPLE TAKEN TO LAB AND HAND GIVEN TO ELVIS ALVARADO TECH.
[2020-11-16 21:44] LABS: APPEARANCE,URINE SL CLOUDY (CLEAR); BILIRUBIN,URINE NEGATIVE (NEGATIVE); BLOOD, URINE 1+ (NEGATIVE); COLOR,URINE YELLOW (YELLOW); LEUKOCYTE ESTERASE ,URINE 3+ (NEGATIVE); NITRITE, URINE POSITIVE (NEGATIVE); PH,URINE >=9.0 (5.0-9.0); UGLUCOSE NEGATIVE (NEGATIVE)
[2020-11-16 21:54] LABS: WBC,URINE 0-5 /HPF (0-5)
--- NOTE | 2020-11-16 22:30 | NUR ---
ERMD AT BEDSIDE.
[2020-11-16] MEDS ORDERED: PHENAZOPYRIDINE 100 MG TAB PO ONE (22:35)
[2020-11-16] MEDS ORDERED: SULFAMETH/TRIMETH DS 800/160MG 1 TAB PO ONE (22:35)
[2020-11-16] MEDS ORDERED: PYR100 PO (22:45)
[2020-11-16] MEDS ORDERED: SULF-59 PO (22:45)
[2020-11-16 23:00] VITALS: BP 127/78
--- NOTE | 2020-11-16 23:00 | NUR ---
Patient discharged with v/s stable. Written and verbal after care instructions given and explained. Patient alert, oriented and verbalized understanding of instructions. Ambulatory with steady gait. All questions addressed prior to discharge. ID band removed. Patient advised to follow up with PMD. Rx of PYRIDIUM AND BACTRIM given. Patient educated on indication of medication including possible reaction and side effects. Opportunity to ask questions provided and answered.
== END 2020-11-16 23:00 | disposition home or self-care (01) ==
LOC: MED 20:55
DX: N39.0 Urinary tract infection, site not specified (principal); R30.0 Dysuria; Z79.899 Other long term (current) drug therapy; Z85.43 Personal history of malignant neoplasm of ovary; Z90.710 Acquired absence of both cervix and uterus
CPT/HCPCS: 81001; 87086; 99283

== ENCOUNTER 2020-11-21 21:45 | Inpatient (IN) | payer OTHER, SELFPAY ==
[~2020-11-21] VITALS: Ht 157.5 cm; Wt 48.1 kg
[~2020-11-21 21:45] MED LIST changes: +PYR100 PO; +SULF-59 PO
[2020-11-21 22:02] VITALS: BP 125/84
--- NOTE | 2020-11-21 22:08 | NUR ---
PT TAKEN TO BED 6
--- NOTE | 2020-11-21 22:40 | NUR ---
60 YO/F BIB self w C/O back, neck, lower abdominal, and pelvic pain 10/10 x 1day, and reports n/d, dizzyness and chills x1 day. Denies fevers. Patient reports she has noted less urine output draining from nephrostomy tube and urostomy tube. Green discharge noted at R side urostomy tube site. Patient reports seeing blood in diarrhea. Bowel sounds present throughout all quadrants. Patient is AOX4, GCS 15. Patient laying in bed, locked in lowest potition, x2 side rails up for patient safety, HOB slightly elevated. NAD noted, will continue to monitor. PMH: PELVIC CANCER NKA
--- NOTE | 2020-11-21 23:49 | NUR ---
Dr. De Los Santos examining patient.
[2020-11-21] MEDS ORDERED: cefTRIAXone 2,000 MG in DEXTROSE 5% 100 ML IV ONE (23:55)
[2020-11-21] MEDS ORDERED: MORPHINE SULFATE 4 MG/ML SYR IVP ONE (23:55)
[2020-11-21] MEDS ORDERED: NACL 0.9% 1,000 ML IV ONE (23:55)
--- NOTE | 2020-11-21 23:58 | NUR ---
20g IV placed in left forearm - blood cultures and labs collected and handed to Desire from lab.
[2020-11-22] MEDS ORDERED: cefTRIAXone 2,000 MG VIAL ONE (00:07)
[2020-11-22 00:13] LABS: APPEARANCE,URINE HAZY (CLEAR); BILIRUBIN,URINE NEGATIVE (NEGATIVE); BLOOD, URINE 2+ (NEGATIVE); COLOR,URINE YELLOW (YELLOW); LEUKOCYTE ESTERASE ,URINE 2+ (NEGATIVE); NITRITE, URINE POSITIVE (NEGATIVE); PH,URINE >=9.0 (5.0-9.0); UGLUCOSE NEGATIVE (NEGATIVE)
--- NOTE | 2020-11-22 00:16 | NUR ---
pt being taken to ct via w.c.
--- NOTE | 2020-11-22 00:16 | NUR ---
Penny dodson in [facility] - 11/22/20 at 0017 by NETTIE PT TAKEN TO CT
[2020-11-22 00:19] LABS: RBC,URINE 0-5 /HPF (0-5); WBC,URINE 0-5 /HPF (0-5)
--- NOTE | 2020-11-22 00:26 | NUR ---
Anya and aerobic culture collected and walked to lab.
[2020-11-22 00:27] LABS: ANION GAP 20.5 (8-16); CARBON DIOXIDE 20.6 mmol/L (21-32); CREATININE 2.8 mg/dL (0.6-1.3); POTASSIUM 5.1 mmol/L (3.5-5.1)
[2020-11-22 00:29] LABS: BASOPHILS # (AUTO) 0.1 K/uL (0.00-0.22); EOSINOPHILS # (AUTO) 0.6 K/uL (0-0.4); EOSINOPHILS % (AUTO) 6.8 % (0.0-4.0); HEMATOCRIT 24.8 % (36-48); HEMOGLOBIN 8.1 g/dL (12.0-16.0); LYMPHOCYTES # (AUTO) 1.7 K/uL (2.5-16.5); LYMPHOCYTES % (AUTO) 20.2 % (20.5-51.1); MEAN CORPUSCULAR HEMOGLOBIN 27 pg (27-31); MEAN CORPUSCULAR HGB CONC 33 g/dL (33-37); MEAN CORPUSCULAR VOLUME 81.3 fL (80-94); MONOCYTES # (AUTO) 0.8 K/uL (0.8-1.0); MONOCYTES % (AUTO) 10.1 % (1.7-9.3); NEUTROPHILS # (AUTO) 5.1 K/uL (1.8-7.7); NEUTROPHILS % (AUTO) 61.9 % (42.2-75.2); PLATELET COUNT (AUTO) 435 K/uL (140-450); RED BLOOD CELL COUNT(AUTO) 3.05 MIL/uL (4.20-5.40); RED CELL DISTRIBUTION WIDTH 17.9 % (11.6-13.7); WHITE BLOOD COUNT (AUTO) 8.2 K/uL (4.8-10.8)
[2020-11-22 00:33] LABS: ALBUMIN 2.7 g/dL (3.4-5.0); TOTAL BILIRUBIN 0.2 mg/dL (0.0-1.0)
--- NOTE | 2020-11-22 00:53 | NUR ---
Patient ambulated to bathroom w steady gait.
[2020-11-22] MEDS ORDERED: ACETAMINOPHEN 325 MG TAB PO PRN (03:50)
[2020-11-22] MEDS ORDERED: HYDROcodone/APAP 5/325 MG 1 TAB TAB PO PRN (03:50)
--- NOTE | 2020-11-22 04:40 | NUR ---
Patient will be admitted to care of DR. BARTHOLOMEW. Admited to MED/SURG. Will go to room 106 A. Belongings list completed. Report to MARTA CABALLERO.
[2020-11-22 04:45] VITALS: BP 118/68
--- NOTE | 2020-11-22 04:45 | NUR ---
RECEIVED CARE AND REPORT FROM ED RN. PATIENT RESTING IN BED, HOB 30 DEGREES, RESTING IN A POSITION OF COMFORT. PATIENT ALERT AND ORIENTED X4, TO PERSON, PLACE, TIME AND EVENT. PATIENT ROOM AIR 95% OXYGEN SATURATION. LUNG SOUNDS CLEAR EQUAL AND BILATERAL, HEART SOUNDS S1, S2 HEART SOUNDS HEARD, AND NORMOACTIVE ABDOMINAL BOWEL SOUNDS HEARD IN ALL 4 QUADRANTS ON AUSCULTATION. PATIENT TRACKING WITH EYES WHEN ENTERING THE ROOM. NO OBVIOUS SIGNS OF DISTRESS OBSERVED WHILE AT THE BEDSIDE. PATIENT STATED BEING IN PAIN, GENERALIZED BODY ACHES. PATIENT AMBULATORY, ABLE TO USE COMODE WITH RN ASSISTANCE. PATIENT HAS AN IV SITE OF A LEFT FA 20G SALINE LOCK RUNNING 0.9% NS AT 75 ML/HR, SITE DRY, CLEAN AND INTACT. PATIENT EDUCATED ON THE IMPORTANCE OF FREQUENT REPOSITIONING TO PREVENT PRESSURE SORES, ASSISTED WITH REPOSITIONING AND OFFLOADING FROM PRESSURE POINTS. PATIENT BED LOCKED AND LOWERED INTO A POSITION OF SAFETY, CALL LIGHT WITHIN ARMS REACH AWAY, EDUCATED ON HOW TO USE THE CALL LIGHT AND FAMILIARIZED WITH THE ROOM ENVIRONMENT. WILL CONTINUE TO REASSESS OFTEN, CLOSELY MONITOR AND FREQUENTLY ROUND THROUGHOUT THE SHIFT.
[2020-11-22] MEDS: NACL 0.9% 1,000 ML IV SCH ×3 (05:10→20:51)
--- NOTE | 2020-11-22 05:30 | NUR ---
PRN MORPHINE GIVEN PER MD ORDER FOR GENERALIZED PAIN BODY ACHES, WILL CONTINUE TO CLOSELY MONITOR AND FREQUENTLY ROUND.
[2020-11-22] MEDS: MORPHINE SULFATE 4 MG/ML SYR IVP PRN ×3 (05:36→17:26)
--- NOTE | 2020-11-22 06:20 | NUR ---
PATIENT RESTING IN A POSITION OF COMFORT IN THE BED, TRYING TO SLEEP. NO OBVIOUS SIGNS OF DISTRESS OBSERVED. WILL CONTINUE TO CLOSELY MONITOR AND FREQUENTLY ROUND.
--- NOTE | 2020-11-22 07:15 | NUR ---
ENDORSED PT TO DIRECTOR REPORT NURSE ,BOB DON RA. NO SIGN OF DISTRESS. Addendum: 11/22/20 at 1934 by Alexandria Robison RN RN CORRECT TIME 1914
--- NOTE | 2020-11-22 07:15 | NUR ---
REC'D REPORT FROM OPEN HEARTH HELPER NURSE, PT A/OX4, RA. IV SITE LEFT FA 20 G DRY CLEAN INTACT. INFUSING NS AT 75ML/HR. CALL LIGHT WITHIN REACH. ALL SAFETY MEASURES IN PLACE.
--- NOTE | 2020-11-22 07:30 | NUR ---
REPORT AND CARE ENDORSED TO DAYSHIFT RN, VS STABLE.
[2020-11-22 08:00] VITALS: BP 122/55
--- NOTE | 2020-11-22 09:06 | NUR ---
PATIENT HAS BEEN SCREENED AND CATEGORIZED HIGH NUTRITION RISK. PATIENT WILL BE SEEN WITHIN 1-2 DAYS OF ADMISSION. 11/22/20-11/23/20 FNS REFERRAL RECEIVED FOR UNINTENTIONAL WEIGHT LOSS AND DECREASED PO INTAKE WITHIN A WEEK. LUIS AYALA RD
--- NOTE | 2020-11-22 14:38 | NUR ---
RD RECOMMENDATION APPROVED BY DR. CARTER FOR MULTIVITAMIN ONCE DAILY, RECEIVED VORB.
--- NOTE | 2020-11-22 15:23 | NUR ---
11/22/20 RD INITIAL ASSESSMENT COMPLETED PLEASE REFER TO NUTRITION ASSESSMENT UNDER CARE ACTIVITY FOR ESTIMATED NUTRITIONAL NEEDS. 1. CONTINUE REGULAR DIET TOLERATED 2. RECOMMENDED ENSURE CHOCOLATE TID AND MVI ONCE DAILY 3. ENCOURAGE PO INTAKE 4. RD TO FOLLOW-UP 3-5 DAYS, MODERATE RISK LUIS AYALA, MISHA
[2020-11-22 16:00] VITALS: BP 95/46
--- NOTE | 2020-11-22 16:03 | NUR ---
DC PLANNIN YRS OLD FEMALE PATIENT WAS ADMITTED FROM HOME WITH A DX OF RIGHT HYDRONEPHROSIS AND UTI. PATIENT HAS A HX OF PELVIC/OVARIAN CANCER , RECENTLY HAD BILATERAL NEPHROSTOMY TUBES. CT ABD SHOWED BILATERAL PERCUTANEOUS NEPHROSTOMIES. SEVER HYDRONEPHROSIS HAS DEVELOPED. CONSULTED WITH RN TELEPHONIC. DC PLAN TO GO HOME WHEN STABLE CM TO FOLLOW Addendum: 11/23/20 at 1337 by Angeles Medrano RN DC PLANNING: BILATERAL NEPHROSTOMY TUBE EXCHANGE IS SCHEDULE WITH IR AT 3PM. CLARIFIED WITH RADIOLOGY DEPT. DC PLAN TO GO HOME WHEN STABLE CM TO FOLLOW . Addendum: 11/24/20 at 0919 by Yuni Saldivar CM DC PHOTOENGRAVING SUPERVISOR: PATIENT HAS A FOLLOW UP APPOINTMENT ON 11/30/2020 AT 11:30 AM WITH PCP ROCIO BELLAMY [phone]. [id number] [place] [id number]
--- NOTE | 2020-11-22 19:10 | NUR ---
RECEIVED BEDSIDE ENDORSEMENT FROM AM SHIFT RN. PATIENT IS AAOX4, ON ROOM AIR, AMBULATORY, IVF INFUSING, W/ 2 LEFT AND RIGHT NEPHROSTOMY TUBE IN PLACE, INTACT, SAFETY MEASURES IN PLACE, PLAN OF CARE DISCUSSED, CALL LIGHT WITHIN REACH.
[2020-11-22 20:00] VITALS: BP 91/44
--- NOTE | 2020-11-22 20:53 | NUR ---
PT ASLEEP, IVF FINISHED, HANGED A NEW BAG OF NS 1L AT 75 ML/HR ORDERED.
--- NOTE | 2020-11-23 00:26 | NUR ---
ROCEPHIN IV GIVEN ORDERED, NO A/R NOTED, WILL CONTINUE TO MONITOR, CALL LIGHT WITHIN REACH.
--- NOTE | 2020-11-23 02:14 | NUR ---
PATIENT IS SLEEPING, RESPIRATION EVEN AND UNLABORED, CALL LIGHT WITHIN REACH.
[2020-11-23 04:00] VITALS: BP 103/60
--- NOTE | 2020-11-23 05:01 | NUR ---
clindamycin iv given as ordered, no a/r noted, med education provided, call light within reach.
[2020-11-23] MEDS: MORPHINE SULFATE 4 MG/ML SYR IVP PRN ×4 (05:09→23:33)
[2020-11-23 06:08] LABS: BASOPHILS # (AUTO) 0.1 K/uL (0.00-0.22); BASOPHILS % (AUTO) 1.3 % (0.0-2.0); EOSINOPHILS # (AUTO) 0.7 K/uL (0-0.4); EOSINOPHILS % (AUTO) 10.4 % (0.0-4.0); HEMATOCRIT 21.4 % (36-48); HEMOGLOBIN 7.1 g/dL (12.0-16.0); LYMPHOCYTES # (AUTO) 1.3 K/uL (2.5-16.5); LYMPHOCYTES % (AUTO) 20.2 % (20.5-51.1); MEAN CORPUSCULAR HEMOGLOBIN 27 pg (27-31); MEAN CORPUSCULAR HGB CONC 33 g/dL (33-37); MEAN CORPUSCULAR VOLUME 81.1 fL (80-94); MONOCYTES # (AUTO) 0.6 K/uL (0.8-1.0); MONOCYTES % (AUTO) 8.8 % (1.7-9.3); NEUTROPHILS # (AUTO) 3.8 K/uL (1.8-7.7); NEUTROPHILS % (AUTO) 59.3 % (42.2-75.2); PLATELET COUNT (AUTO) 349 K/uL (140-450); RED BLOOD CELL COUNT(AUTO) 2.64 MIL/uL (4.20-5.40); RED CELL DISTRIBUTION WIDTH 17.9 % (11.6-13.7); WHITE BLOOD COUNT (AUTO) 6.4 K/uL (4.8-10.8)
[2020-11-23 06:46] LABS: ALBUMIN 2.2 g/dL (3.4-5.0); ANION GAP 16.2 (8-16); CARBON DIOXIDE 20.7 mmol/L (21-32); CREATININE 2.1 mg/dL (0.6-1.3); POTASSIUM 4.9 mmol/L (3.5-5.1); TOTAL BILIRUBIN 0.2 mg/dL (0.0-1.0)
--- NOTE | 2020-11-23 07:22 | NUR ---
RECEIVED REPORT FROM NIGHT NURSE PATIENT IS AAOX4, ROOM AIR, AMBULATORY, ON NPO, WITH LEFT AND RIGHT NEPHROSTOMY TUBE RIGHT NEPHROSTOMY TUBE OUTPUT 400 ML AND LEFT NEPHROSTOMY TUBE OUTPUT 500 ML, INCONTINENT, STRICT INPUT AND OUTPUT, SKIN INTACT, IV [id number] ON LEFT FA, FOR BILATERAL NEPHROSTOMY TUBE EXCHANGE, CT ABDOMEN DONE. LAST BOWEL MOVEMENT LAST 2-3 DAYS. SAFETY MEASURES IN PLACE AND CALL LIGHT WITHIN REACH. WILL CONTINUE TO MONITOR.
--- NOTE | 2020-11-23 07:25 | NUR ---
PT STABLE, BEDSIDE ENDORSEMENT GIVEN TO AM NURSE FOR CONTINUITY OF CARE.
[2020-11-23 08:00] VITALS: BP 105/52
[2020-11-23] MEDS: MULTIVITAMIN 1 TAB PO SCH (08:51)
--- NOTE | 2020-11-23 08:51 | NUR ---
MEDICATION DUE NOT GIVEN PT IS NPO, PT COMPLAINS OF PAIN IN THE RIGHT LOWER QUADRANT OF THE ABDOMEN 03/25 CHECK VITALS PRIOR TO PAIN MEDS BP 105/52 KS 65.WILL CONTINUE TO MONITOR.
--- NOTE | 2020-11-23 10:00 | NUR ---
PATIENT FEELS BETTER AFTER PAIN MEDICATION AND OUT PUT ON RIGHT NEPHROSTOMY TUBE 50 ML AND LEFT NEPHROSTOMY TUBE 400 ML.
[2020-11-23 11:25] LABS: PROTHROMBIN TIME 9.9 secs (10.8-13.4)
--- NOTE | 2020-11-23 13:34 | NUR ---
MADE ROUNDS AND CHECK PT BACK DRY AND INTACT.
--- NOTE | 2020-11-23 14:44 | NUR ---
MEDICATION GIVEN ROCEPHIN 1000 MG AT 100 MLS/HR INFUSING WELL.
--- NOTE | 2020-11-23 14:52 | NUR ---
PT OUT IN HER ROOM FOR BILATERAL NEPHROSTOMY TUBE EXCHANGE WITH INTERVENTIONAL RADIOLOGY.
--- NOTE | 2020-11-23 14:53 | NUR ---
CONSENT WAS PREPARED AND SENT DOWN WITH PATIENT TO THE OR. SURGEON STATES THEY WILL COMPLETE THE CONSENT WITH PATIENT ON HOLDING AREA.
[2020-11-23] MEDS ORDERED: LIDOCAINE 1% 500 MG/50 ML VIAL ONE (15:17)
[2020-11-23] MEDS ORDERED: MIDAZOLAM 5 MG/5 ML VIAL ONE (15:35)
[2020-11-23] MEDS ORDERED: fentaNYL citrate 0.05 MG/ML VIAL ONE (15:35)
[2020-11-23 16:00] VITALS: BP 108/48
--- NOTE | 2020-11-23 16:15 | NUR ---
PATIENT BACK IN HER ROOM S/P BILATERAL NEPHROSTOMY TUBE EXCHANGE WITH INTERVENTIONAL RADIOLOGT. CHECK VITAL SIGNS PT IS STABLE NAD DENIES PAIN.
--- NOTE | 2020-11-23 18:08 | NUR ---
PATIENT COMPLAINS OF PAIN 01/23 CHECK VITAL SIGNS PRIOR TO MEDICATION BP 108/48 MT 90.
--- NOTE | 2020-11-23 19:27 | NUR ---
ENDORSED TO NIGHT NURSE FOR CONTINUITY OF CARE. PT IS STABLE
--- NOTE | 2020-11-23 19:28 | NUR ---
RECD. RESTING IN BED, AWAKE, A/OX4. RESPIRATION EVEN AND UNLABORED. IV OF NS INFUSING AT 75 ML/HR, LEFT FOREARM G20. BOTH NEPHROSTOMY TUBES DRAINING CLEAR SHERRON COLORED URINE. AMBULATORY TO THE BR. ON IV ANTIBIOTIC. INSTRUCTED TO CALL NURSE WHENEVER NEEDING HELP. TEACHING ON PAIN MANAGEMENT GIVEN. VERBALIZED UNDERSTANDING. DENIES PAIN 0/10 AT THIS TIME.
[2020-11-23] MEDS: NACL 0.9% 1,000 ML IV SCH (19:50)
--- NOTE | 2020-11-23 20:00 | NUR ---
Patient's Plan of Care was discussed and reviewed with COMPUTER TYPESETTER: MEIR QUEEN
--- NOTE | 2020-11-23 21:00 | NUR ---
ACCIDENTALLY UNOPENED CONTROL OF RIGHT NEPHROSTOMY TUBE, WET THE BED, CHANGED BEDDINGS. MADE COMFORTABLE IN BED WITH PILLOWS.
--- NOTE | 2020-11-23 23:30 | NUR ---
ADMINISTERED SCHEDULED MEDICATION ORDERED. EDUCATION PROVIDED. PT VERBALIZED UNDERSTANDING. NO DISTRESS NOTED. CALL LIGHT WITHIN REACH. WILL CONTINUE TO MONITOR
--- NOTE | 2020-11-23 23:33 | NUR ---
PRN MORPHINE GIVEN FOR C/O SEVERE ABD PAIN. EDUCATION PROVIDED. PT VERBALIZED UNDERSTANDING. NO DISTRESS NOTED. CALL LIGHT WITHIN REACH. WILL CONTINUE TO MONITOR
--- NOTE | 2020-11-24 00:30 | NUR ---
SLEEPING COMFORTABLY IN BED.
--- NOTE | 2020-11-24 01:40 | NUR ---
AMBULATED TO BR . HAD MEDIUM SOFT BM. BACK TO BED AND WENT BACK TO SLEEP.
[2020-11-24 04:00] VITALS: BP 94/56
--- NOTE | 2020-11-24 04:00 | NUR ---
NO COMPLAINT OF PAIN 0/10, VS STABLE.
[2020-11-24] MEDS: NACL 0.9% 1,000 ML IV SCH ×2 (05:49→09:28)
--- NOTE | 2020-11-24 07:00 | NUR ---
ASSISTED TO BR TO VOID, BACK TO BED AFTER VOIDING, SAFETY MAINTAINED.
--- NOTE | 2020-11-24 07:29 | NUR ---
ENDORSED TO AM SHIFT NURSES FOR CONTINUITY OF CARE.
--- NOTE | 2020-11-24 07:30 | NUR ---
PT RECEIVED FROM GAS TRANSFER OPERATOR NURSE. PT AMBULATED TO RESTROOM INDEPENDENTLY TOLERATED WELL. NO S/S OF DISTRESS. ALL SAFETY MEASURES ARE IN PLACE.
[2020-11-24] MEDS: MULTIVITAMIN 1 TAB PO SCH (08:20)
--- NOTE | 2020-11-24 08:23 | NUR ---
MEDICATIONS GIVEN PER MD ORDER. PT EDUCATED. PT VERBALIZED UNDERSTANDING . PT TOLERATED WELL. CALL LIGHT WITHIN REACH . PT REORIENTED TO ROOM.
--- NOTE | 2020-11-24 08:25 | NUR ---
PT COMPLAINS OF 101/ PAIN . VITALS REASSESSED BP 102/56. PT EDUCATED ON SIDE EFFECTS.PT VERBALIZED UNDERSTANDING. NO S/S OF DISTRESS AT THIS TIME Addendum: 11/24/20 at 0835 by Nayana Mckee RN RN 03/25 PAIN
[2020-11-24] MEDS: MORPHINE SULFATE 4 MG/ML SYR IVP PRN ×2 (08:59→12:04)
--- NOTE | 2020-11-24 09:01 | NUR ---
PT REASSESSED FOR PAIN. PT STATES 4/ 10 PAIN IS TOLERABLE. CALL LIGHT WITHIN REACH .
--- NOTE | 2020-11-24 10:30 | NUR ---
BALA PROVIDED PER PT REQUEST.
[2020-11-24 12:00] VITALS: BP 102/64
--- NOTE | 2020-11-24 12:32 | NUR ---
CHARTING ERROR. PRN MEDICATION FOR PAIN AT 0859 DID NOT GET SAVED. EDITED ADMINISTRATION TIME. PHARMACY AWARE.
--- NOTE | 2020-11-24 13:52 | NUR ---
PT WANTS TO LEAVE AGAINST MEDICAL ADVICE, PT EDUCATED AND VERBALIZED UNDERSTANDING. AWARE. PT SIGNED PAPERWORK .
--- NOTE | 2020-11-24 13:53 | NUR ---
PATIENT IS AAOX4. WANTS TO AMA, EXPLAINED THE RISK AND BENEFITS OF LEAVING AGAINST MEDICAL ADVICE, VERBALIZES UNDERSTANDING X2. WILL NOTIFY .
--- NOTE | 2020-11-24 14:10 | NUR ---
PATIENT LEFT UNIT. IN PRIVATE VEHICLE. ARM BANDS REMOVED. IV REMOVED. CANULA INTACT.
[2020-11-24] MEDS ORDERED: CEFU500T73 PO (15:54)
== END 2020-11-24 14:15 | disposition left against medical advice (07) | DRG 466 ==
LOC: MED 21:45 → MTU 11-22 03:53
PROVIDERS: ADMIT Hospitalist; ATTEND Hospitalist
PROC: 0T25X0Z Change Drainage Device in Kidney, External Approach (ICD-10-PCS; principal; 2020-11-23)
PROC: 0T25X0Z Change Drainage Device in Kidney, External Approach (ICD-10-PCS; 2020-11-23)
DX: N99.522 Malfunction of incontinent external stoma of urinary tract (principal); E87.5 Hyperkalemia; N13.6 Pyonephrosis; Z20.822 Contact with and (suspected) exposure to COVID-19; Z53.29 Procedure and treatment not carried out because of patient's decision for other reasons; Y83.8 Other surgical procedures as the cause of abnormal reaction of the patient, or of later complication, without mention of misadventure at the time of the procedure; D64.9 Anemia, unspecified; Z85.43 Personal history of malignant neoplasm of ovary; Z85.53 Personal history of malignant neoplasm of renal pelvis; Z79.899 Other long term (current) drug therapy
CPT/HCPCS: 36415; 50432; 80053; 81001; 85025; 85610; 85730; 87040; 87070; 87081; 87086; 96365; 96375; 99285; J0696; J2001; J2250; J2270; J3010; J7060

== ENCOUNTER 2021-02-11 16:19 | Observation (INO) | payer OTHER, SELFPAY ==
[~2021-02-11] VITALS: Ht 157.5 cm; Wt 45.4 kg
[~2021-02-11 16:19] MED LIST changes: +CEFU500T73 PO; -CEPH-588 PO; -CEPH500C16 PO; -SULF-58 PO; -SULF-59 PO
[2021-02-11 16:33] VITALS: BP 106/67
--- NOTE | 2021-02-11 16:33 | NUR ---
Patient ambulated with steady gait to bed 5
--- NOTE | 2021-02-11 16:34 | NUR ---
BIBS C/O 1010 LOWER ABDOMINAL PAIN SINCE YESTERDAY. C/O VAGINAL BLEEDING XYESTERDAY. DENIES N/V/D. +CHILLS. PMH: CERVICAL, LIVER, PELVIC CANCER. STEVE NEPHROSTOMY TUBES, RECTAL/VAGINAL FISTULA, CHEMO PORT TO RIGHT UPPER CHEST. KIDNEY STONES NKDA
--- NOTE | 2021-02-11 17:06 | NUR ---
MD CHEN AT BEDSIDE PERFORMING RECTAL EXAM.
[2021-02-11] MEDS ORDERED: MORPHINE SULFATE 4 MG/ML SYR IVP ONE (17:10)
[2021-02-11] MEDS ORDERED: NACL 0.9% 1,000 ML IV ONE ×2 (17:10→21:05)
[2021-02-11 17:45] LABS: BASOPHILS # (AUTO) 0.1 K/uL (0.00-0.22); BASOPHILS % (AUTO) 0.6 % (0.0-2.0); EOSINOPHILS # (AUTO) 0.3 K/uL (0-0.4); EOSINOPHILS % (AUTO) 2.2 % (0.0-4.0); HEMATOCRIT 25.1 % (36-48); HEMOGLOBIN 8.2 g/dL (12.0-16.0); LYMPHOCYTES # (AUTO) 1.4 K/uL (2.5-16.5); MEAN CORPUSCULAR HEMOGLOBIN 27 pg (27-31); MEAN CORPUSCULAR HGB CONC 33 g/dL (33-37); MEAN CORPUSCULAR VOLUME 82.2 fL (80-94); MONOCYTES % (AUTO) 8.1 % (1.7-9.3); NEUTROPHILS # (AUTO) 9.3 K/uL (1.8-7.7); NEUTROPHILS % (AUTO) 77.1 % (42.2-75.2); PLATELET COUNT (AUTO) 453 K/uL (140-450); RED BLOOD CELL COUNT(AUTO) 3.06 MIL/uL (4.20-5.40)
[2021-02-11 17:54] LABS: ALBUMIN 2.5 g/dL (3.4-5.0); ANION GAP 10.5 (8-16); CARBON DIOXIDE 25.7 mmol/L (21-32); CREATININE 1.6 mg/dL (0.6-1.3); POTASSIUM 3.2 mmol/L (3.5-5.1); TOTAL BILIRUBIN 0.2 mg/dL (0.0-1.0)
[2021-02-11 18:01] LABS: APPEARANCE,URINE CLOUDY (CLEAR); BILIRUBIN,URINE NEGATIVE (NEGATIVE); BLOOD, URINE 2+ (NEGATIVE); COLOR,URINE YELLOW (YELLOW); LEUKOCYTE ESTERASE ,URINE 2+ (NEGATIVE); NITRITE, URINE NEGATIVE (NEGATIVE); UGLUCOSE NEGATIVE (NEGATIVE)
[2021-02-11 18:03] LABS: RBC,URINE 20-50 /HPF (0-5); WBC,URINE 60-80 /HPF (0-5)
[2021-02-11] MEDS ORDERED: PANTOPRAZOLE 40 MG INJ VIAL IVP ONE (18:05)
--- NOTE | 2021-02-11 18:14 | NUR ---
PT TAKEN TO CT VIA WHEELCHAIR
[2021-02-11] MEDS ORDERED: PANTOPRAZOLE 40 MG INJ VIAL ONE (18:57)
--- NOTE | 2021-02-11 19:10 | NUR ---
REPORT AND CONTINUATION OF CARE GIVEN TO MARTA ABBOTT.
--- NOTE | 2021-02-11 19:10 | NUR ---
REPORT RECEIVED FROM MARTA MONET FOR CONTINUATION OF PATIENT CARE AT THIS TIME.
[2021-02-11] MEDS ORDERED: cefTRIAXone 1,000 MG VIAL ONE (19:20)
--- NOTE | 2021-02-11 19:35 | NUR ---
PATIENT LAYING IN BED LOCKED IN LOWEST POSITION, HOB SLIGHTLY ELEVATED. PATIENT TALKING ON HER PHONE. PATIENT REPORTS 10/10 LOWER ABDOMINAL/PELVIC PAIN, ERMD MADE AWARE. PATIENT BLOOD PRESSURE AT 97/48 ERMD MADE AWARE. BOWEL SOUNDS PRESENT THROUGHOUT. BREATHING EVEN AND UNLABORED, CONNECTED TO MONITOR. WILL CONTINUE TO MONITOR.
--- NOTE | 2021-02-11 21:00 | NUR ---
PATIENT LAYING IN BED L LATERAL POSITION W EYES CLOSED. BREATHING EVEN AND UNLABORED. NAD NOTED. CONNECTED TO MONITOR. WILL CONTINUE TO MONITOR.
[2021-02-11] MEDS ORDERED: NACL 0.9% 1,000 ML IV SCH (21:05)
[2021-02-11] MEDS ORDERED: ONDANSETRON 4 MG/2 ML VIAL IVP PRN (21:10)
[2021-02-11] MEDS ORDERED: MAG SULF 2000 MG/WATER PREMIX 50 ML IV PRN (21:10)
[2021-02-11] MEDS ORDERED: HYDROcodone/APAP 5/325 MG 1 TAB TAB PO PRN (21:10)
[2021-02-11] MEDS ORDERED: MAGNESIUM OXIDE 400 MG TAB PO PRN (21:10)
[2021-02-11] MEDS ORDERED: KCL 20 MEQ/WATER INJ PREMIX 200 ML IV PRN (21:10)
[2021-02-11] MEDS ORDERED: ACETAMINOPHEN 325 MG TAB PO PRN (21:10)
[2021-02-11] MEDS ORDERED: POTASSIUM CHLORIDE 10 MEQ TABER PO PRN (21:10)
[2021-02-11] MEDS: MORPHINE SULFATE 4 MG/ML SYR IVP PRN (22:05)
[2021-02-11] MEDS: NACL 0.9% 1,000 ML IV SCH (22:44)
--- NOTE | 2021-02-11 23:00 | NUR ---
PATIENT LAYING IN BED L LATERAL POSITION, W EYES CLOSED. BED LOCKED IN LOWEST POSITION. X2 SIDERAILS UP FOR PATIENT SAFETY. BREATHING EVEN AND UNLABORED. CONNECTED TO MONITOR W VSS. 0.9 NS FLUIDS RUNNING AT 80ML/HR. NAD NOTED. WILL CONTINUE TO MONITOR.
--- NOTE | 2021-02-12 00:20 | NUR ---
CONTACTED ADMIN DOCTOR [place] TRISTAN TO PATIENT'S BLOOD PRESSURE OF 98/60. WAITING FOR A CALL BACK AT THIS TIME.
--- NOTE | 2021-02-12 00:32 | NUR ---
PER ADMIN DOCTOR [place], MONITOR PATIENT BLOOD PRESSURE. RE-CONTACT DR. BARTHOLOMEW IF MAP GOES BELOW (60).
--- NOTE | 2021-02-12 02:00 | NUR ---
PATIENT LAYING IN BED R LATERAL POSITION, W EYES CLOSED. BED LOCKED IN LOWEST POSITION. X2 SIDERAILS UP FOR PATIENT SAFETY. BREATHING EVEN AND UNLABORED. CONNECTED TO MONITOR W VSS. 0.9 NS FLUIDS RUNNING AT 80ML/HR. NAD NOTED. WILL CONTINUE TO MONITOR.
--- NOTE | 2021-02-12 04:00 | NUR ---
PATIENT LAYING IN BED R LATERAL POSITION, W EYES CLOSED. BED LOCKED IN LOWEST POSITION. X2 SIDERAILS UP FOR PATIENT SAFETY. BREATHING EVEN AND UNLABORED. CONNECTED TO MONITOR W VSS. 0.9 NS FLUIDS RUNNING AT 80ML/HR W 588ML VTBI. NAD NOTED. WILL CONTINUE TO MONITOR.
--- NOTE | 2021-02-12 05:00 | NUR ---
PATIENT W C/O PELVIC PAIN 01/23. WILL ADMIN PAIN MED.
[2021-02-12] MEDS: MORPHINE SULFATE 4 MG/ML SYR IVP PRN ×3 (05:09→22:36)
[2021-02-12 06:55] LABS: BASOPHILS # (AUTO) 0.1 K/uL (0.00-0.22); BASOPHILS % (AUTO) 0.5 % (0.0-2.0); EOSINOPHILS # (AUTO) 0.2 K/uL (0-0.4); HEMOGLOBIN 7.1 g/dL (12.0-16.0); MEAN CORPUSCULAR HEMOGLOBIN 27 pg (27-31); MONOCYTES # (AUTO) 1.2 K/uL (0.8-1.0); NEUTROPHILS # (AUTO) 8.8 K/uL (1.8-7.7); RED BLOOD CELL COUNT(AUTO) 2.65 MIL/uL (4.20-5.40); WHITE BLOOD COUNT (AUTO) 11.1 K/uL (4.8-10.8)
--- NOTE | 2021-02-12 07:00 | NUR ---
PATIENT LAYING IN BED L LATERAL POSITION, W EYES CLOSED. BED LOCKED IN LOWEST POSITION. X2 SIDERAILS UP FOR PATIENT SAFETY. BREATHING EVEN AND UNLABORED. CONNECTED TO MONITOR W VSS. 0.9 NS FLUIDS RUNNING AT 80ML/HR W 348ML VTBI. NAD NOTED. WILL CONTINUE TO MONITOR.
[2021-02-12 07:03] LABS: EOSINOPHILS % (AUTO) 1.9 % (0.0-4.0); HEMATOCRIT 21.8 % (36-48); LYMPHOCYTES # (AUTO) 0.9 K/uL (2.5-16.5); LYMPHOCYTES % (AUTO) 7.7 % (20.5-51.1); MEAN CORPUSCULAR HGB CONC 33 g/dL (33-37); MEAN CORPUSCULAR VOLUME 82.2 fL (80-94); NEUTROPHILS % (AUTO) 78.9 % (42.2-75.2); PLATELET COUNT (AUTO) 371 K/uL (140-450); RED CELL DISTRIBUTION WIDTH 17.8 % (11.6-13.7)
--- NOTE | 2021-02-12 07:15 | NUR ---
Pt report given to MARTA MOSELEY. Transfer of care at this time.
[2021-02-12 07:20] LABS: ALBUMIN 1.9 g/dL (3.4-5.0); ANION GAP 12.6 (8-16); CARBON DIOXIDE 23.4 mmol/L (21-32); CREATININE 1.1 mg/dL (0.6-1.3); TOTAL BILIRUBIN 0.2 mg/dL (0.0-1.0)
--- NOTE | 2021-02-12 07:22 | NUR ---
RECIEVED REPORT FROM MARTA CAMILO. TRANSFER OF CARE RECIEVED
[2021-02-12 07:29] LABS: PROTHROMBIN TIME 10.5 secs (10.8-13.4)
--- NOTE | 2021-02-12 09:10 | NUR ---
PT CURRENTLY RESTING WITH EYES CLOSED BEDSIDE. PT ON SIGNAL WIRER. BED IN LOWEST POSITION WITH SIDERAIL X1 UP. WILL CONTINUE TO MONITOR
[2021-02-12] MEDS: NACL 0.9% 1,000 ML IV SCH ×2 (10:37→22:13)
--- NOTE | 2021-02-12 10:37 | NUR ---
PT RESTING IN BED WITH EYES CLOSED. VITAL SIGNS STABLE AND PT ON SPEECH PATHOLOGIST. BED IN LOWEST POSITION WITH SIDERAIL X1 UP. LIGHTS OFF IN ROOM
--- NOTE | 2021-02-12 10:51 | NUR ---
PT DAUGHTER ANA CALLED AND PROVIDED WITH UPDATE. PHONE # [phone]
--- NOTE | 2021-02-12 11:06 | NUR ---
1000 ML EMPITIED FROM PT NEPHRO BAGS
--- NOTE | 2021-02-12 12:12 | NUR ---
PT PROVIDED WITH LUNCH TRAY
--- NOTE | 2021-02-12 12:50 | NUR ---
pt provided with warm socks
--- NOTE | 2021-02-12 15:10 | NUR ---
PT CURRENTLY RESTING BEDSIDE WITH EYES CLOSED. PT STATED CURRENT PAIN 10/10, PROVIDED PAIN MEDICATION. PT ON GLOVE PARTS INSPECTOR AND VITAL SIGNS STABLE. BED IN LOWEST POSITION WITH SIDERAIL X2 UP. WILL CONTINUE TO MONITOR
[2021-02-12] MEDS ORDERED: cefTRIAXone 1,000 MG VIAL ONE (19:09)
--- NOTE | 2021-02-12 19:15 | NUR ---
REPORT RECEIVED FROM MARTA MOSELEY FOR CONTINUATION OF PATIENT CARE.
--- NOTE | 2021-02-12 19:17 | NUR ---
Pt report given to MARTA CAMILO. Transfer of care at this time. 1899 TREY PULLED AND GIVEN TO MARTA CAMILO TO GIVE TO PT
--- NOTE | 2021-02-12 19:25 | NUR ---
PATIENT SITTING IN BED LOCKED IN LOWEST POSITION, X1 SIDE RAIL UP. PATIENT REPORTS PELVIC PAIN IMPROVEMENT TO 08/23. PATIENT EATING DINNER. CONNECTED TO MONITOR W VSS. 0.9 NS RUNNING AT 80ML/HR W 302ML VTBI.
--- NOTE | 2021-02-12 19:30 | NUR ---
PATIENT AMBULATED TO BATHROOM W STEADY GAIT.
--- NOTE | 2021-02-12 21:27 | NUR ---
REPORT CALLED TO MARTA SANCHEZ FOR TRANSFER OF PATIENT CARE AT THIS TIME.
--- NOTE | 2021-02-12 21:30 | NUR ---
RECEIVED REPORT FROM ER NURSE OVER THE PHONE, PT IN STABLE CONDITION.
--- NOTE | 2021-02-12 21:34 | NUR ---
Patient will be admitted to care of DR. NOLAN. Admited to TELEMETRY. Will go to room 106A. Belongings list completed. Report to MARTA SANCHEZ.
[2021-02-12 22:10] VITALS: BP 98/56
--- NOTE | 2021-02-12 22:40 | NUR ---
PT WAS BROUGHT UP BY SANDRA TO [facility] FLOOR AND ROOM 106. PT AMBULATED INDEPENDENTLY TO BED A. SHE IS AOX4 ON ROOM AIR. SHE HAS A LAC 20G INTACT AND FLUSHED PATENT. NORMAL SALINE RESTARTED AT 80MLS/HR. PT ALSO HAS BILATERAL NEPHROSTOMY TUBES INTACT AND DRAINED, URINE IS YELLOW, CLOUDY NO SEDIMENT NOTED BUT DRAINED URINE HAS A STRONG ODOR. TOTAL AMT OF DRAINED URINE IS 300MLS. PT ALSO HAS RIGHT UPPER CHEST PORT A CATHETER INTACT. ADMISSION V/S FOLLOWS: T 101 P 83 R 20 B/P 98/56 02 100% ON ROOM AIR. MRSA SWAB DONE AND SENT TO LAB. PT GIVEN IVPB MAG RIDER AT 25MLS/HR FOR MAG LEVEL OF 1.5. PT ALSO DECREASED POTASSIUM AND WILL BE GIVEN K-RIDER AFTERWARD. TYLENOL 650MG GIVEN FOR H/A AND INCREASED TEMPERATURE, COOLING MEASURES PROVIDED. PT ALSO GIVEN IVP MORPHINE 4MG /1 ML FOR 7/10 PAIN. ALL REQUESTED NEEDS ATTENDED BY STAFF AND ALL UNIVERSAL FALLS PRECAUTIONS IN PLACE.
[2021-02-13] VITALS: BP 88/54
--- NOTE | 2021-02-13 01:17 | NUR ---
PT IN BED ASLEEP ON ROOM AIR, NO S/S OF PAIN OR DISTRESS NOTED. K-RIDER HUNG AND RUNNING AT 50MLS/HR ORDERED. PT IS NSR ON TELEMONITORING. V/S FOLLOWS: T 97.0 P 68 R 20 B/P 88/54 02 100%. ALL UNIVERSAL FALLS PRECAUTIONS IN PLACE.
--- NOTE | 2021-02-13 02:00 | NUR ---
PT C/O OF BURNING IN IV SITE, RATE OF K-RIDER SLOWED DOWN BUT PT STILL C/O OF PAIN. ABOUT 1/2 BAG ADMINISTERED. ADMINISTRATION OF IV K-RIDER WAS STOPPED.
[2021-02-13 04:00] VITALS: BP 90/49
--- NOTE | 2021-02-13 04:30 | NUR ---
PT UP TO TOILET AND BACK WITH STANDBY ASSISTANCE. NEPHROSTOMY TUBES DRAINED TOTAL OF 400. FOR A TOTAL OF 700MLS OF URINE THIS SHIFT. LAB DRAWS DONE AT BEDSIDE. V/S FOLLOWS: T 97.5 P 65 R 20 B/P 90/49 02 99 ON ROOM AIR. N/S RUNNING AT 80MLS/HR ORDERED. ALL UNIVERSAL FALLS PRECAUTIONS IN PLACE.
--- NOTE | 2021-02-13 06:00 | NUR ---
PT UP TO TOILET WITH STANDBY ASSISTANCE. PT NOTED WITH DISCHARGE OF BLOOD WITH HER STOOL AND SAID THAT THE BLOODY DISCHARGE WAS HAPPENING BEFORE SHE CAME TO THE HOSPITAL. WILL ENDORSE TO AM SHIFT TOO CONTACT PRIMARY MD REGARDING ANY NEW ORDERS. ALL UNIVERSAL FALLS PRECAUTIONS IN PLACE.
[2021-02-13 07:05] LABS: BASOPHILS % (AUTO) 0.7 % (0.0-2.0); EOSINOPHILS # (AUTO) 0.4 K/uL (0-0.4); EOSINOPHILS % (AUTO) 6.3 % (0.0-4.0); HEMATOCRIT 21.7 % (36-48); HEMOGLOBIN 7.2 g/dL (12.0-16.0); LYMPHOCYTES # (AUTO) 0.4 K/uL (2.5-16.5); LYMPHOCYTES % (AUTO) 7.6 % (20.5-51.1); MEAN CORPUSCULAR HEMOGLOBIN 27 pg (27-31); MEAN CORPUSCULAR HGB CONC 33 g/dL (33-37); MEAN CORPUSCULAR VOLUME 82.1 fL (80-94); MONOCYTES # (AUTO) 0.5 K/uL (0.8-1.0); NEUTROPHILS # (AUTO) 4.4 K/uL (1.8-7.7); NEUTROPHILS % (AUTO) 76.4 % (42.2-75.2); PLATELET COUNT (AUTO) 366 K/uL (140-450); RED BLOOD CELL COUNT(AUTO) 2.64 MIL/uL (4.20-5.40); RED CELL DISTRIBUTION WIDTH 17.7 % (11.6-13.7); WHITE BLOOD COUNT (AUTO) 5.7 K/uL (4.8-10.8)
[2021-02-13 07:07] LABS: PROTHROMBIN TIME 10.3 secs (10.8-13.4)
--- NOTE | 2021-02-13 07:20 | NUR ---
RECEIVED BEDSIDE REPORT FROM DRILLER BRAKE LINING NURSE FOR CONTINUITY OF CARE. PT IS AWAKE AND ALERT. A&OX4. ON RA WITH BREATHING UNLABORED. SR ON TELE MONITORING. SKIN IS WARM, DRY, AND INTACT. DIAPER IS IN PLACE FOR PERIODS OF INCONTINENCE OF BOWEL. NEPHROSTOMY TUBES IN PLACE. PT IS STABLE AT THIS TIME. PLAN OF CARE DISCUSSED.
[2021-02-13 07:26] LABS: ALBUMIN 1.8 g/dL (3.4-5.0); ANION GAP 13.6 (8-16); CARBON DIOXIDE 22.6 mmol/L (21-32); MAGNESIUM 2.5 mg/dL (1.8-2.4); POTASSIUM 3.2 mmol/L (3.5-5.1); TOTAL BILIRUBIN 0.1 mg/dL (0.0-1.0)
[2021-02-13 08:00] VITALS: BP 94/62
--- NOTE | 2021-02-13 09:00 | NUR ---
PT IS AWAKE AND ALERT. PT DENIES PAIN AT THIS TIME. NEPHROSTOMY TUBES IN PLACE DRAINING CLEAR, YELLOW URINE. BREATHING IS UNLABORED. PT IS STABLE.
--- NOTE | 2021-02-13 09:10 | NUR ---
PATIENT HAS BEEN SCREENED AND CATEGORIZED HIGH NUTRITION RISK. PATIENT WILL BE SEEN WITHIN 1-2 DAYS OF ADMISSION. 02/13/21 FNS REFERRAL WAS RECEIVED FOR UNINTENTIONAL WEIGHT LOSS LUIS [address]
--- NOTE | 2021-02-13 10:08 | NUR ---
PT WAS GIVEN KDUR 40 MEQ PO FOR POTASSIUM LEVEL OF 3.2. MEDICATION EDUCATION WAS PROVIDED AND PT VERBALIZED UNDERSTANDING.
[2021-02-13] MEDS: NACL 0.9% 1,000 ML IV SCH (10:50)
[2021-02-13] MEDS ORDERED: PANT40EC PO (10:51)
[2021-02-13] MEDS ORDERED: FERR324T11 PO (10:51)
[2021-02-13] MEDS ORDERED: CEFU500T73 PO (10:51)
[2021-02-13] MEDS ORDERED: POTA10TA70 PO (10:53)
[2021-02-13] MEDS ORDERED: POTASSIUM CHLORIDE 10 MEQ TABER PO SCH (11:00)
--- NOTE | 2021-02-13 11:05 | NUR ---
KDUR 40 MEQ PO ORDERED FOR PT AT [address] MEADE THAT THE PRN WAS ALREADY GIVEN THIS MORNING. HE GAVE VERBAL ORDER TO DISCONTINUE THE 1100 AM KDUR ORDER. HE ALSO GAVE ORDER TO GIVE THE FERRIC GLUCONATE ORDERED AT 1200, THEN RESCHEDULE ROCEPHIN TO BE GIVEN AFTER THAT IV, THEN PT IS ABLE TO D/C HOME.
[2021-02-13 12:00] VITALS: BP 95/52
[2021-02-13] MEDS ORDERED: SODIUM FERRIC GLUCONATE 125 MG in NACL 0.9% 100 ML IV SCH (12:00)
--- NOTE | 2021-02-13 12:00 | NUR ---
PT WAS INFORMED OF PLAN OF CARE. PT VERBALIZED UNDERSTANDING. NO DISTRESS NOTED AT THIS TIME. PT DENIES PAIN. WILL CONTINUE TO MONITOR.
--- NOTE | 2021-02-13 12:52 | NUR ---
DC PLANNING: CM MET WITH THE PATIENT AT BEDSIDE WHO ADMITTED THROUGH THE ER FOR S/S OF UTI. THE PATIENT HAS BILATERAL NEPHROSTOMY TUBES PLACED A YEAR AGO AND SEES HER SKEIN YARN DRIER DR DAVIES EVERY 2 MONTHS TO HAVE THE DRAINAGE BAGS CHANGED. THE NEPHROSTOMY TUBES ARE DRAINED BY THE PATIENT. THE PATIENT ALSO HAS A HISTORY OF CERVICAL AND PELVIC CA, DR BAUTISTA IS HER ONCOLOGIST. SHE IS S/P TREATMENT FOR HER CERVICAL CA AND IS UNDERGOING CHEMO EVERY 3 WEEKS FOR HER CURRENT DX OF PELVIC CA. SHE LIVES ALONE IN A SINGLE STORY HOUSE AND IS INDEPENDENT IN ALL ACTIVITIES. SHE HAS NO H/O HOME HEALTH OR DME AND HER SISTER AND DAUGHTER IN LAW DRIVE HER TO HER MD APPOINTMENTS. PLAN IS TO DC TO HOME AFTER HER FINAL DOSES OF IV FE AND ROCEPHIN, CM CONFIRMED THAT PATIENT WILL FOLLOW UP WITH HER PCP AND ONCOLOGIST IN THE NEXT WEEK PER DC ORDERS. CM WILL FOLLOW FOR NEEDS.
--- NOTE | 2021-02-13 13:33 | NUR ---
ROCEPHIN WAS GIVEN AFTER FERRIC GLUCONATE ORDERED BY DR. MEADE. ROCEPHIN HAS JUST BEEN STARTED. PT WILL BE DISCHARGED IF STABLE UPON FINISHING ROCEPHIN.
--- NOTE | 2021-02-13 14:50 | NUR ---
02/13/21 RD INITIAL ASSESSMENT COMPLETED PLEASE REFER TO NUTRITION ASSESSMENT UNDER CARE ACTIVITY FOR ESTIMATED NUTRITIONAL NEEDS. 1. CONTINUE CARDIAC DIET TOLERATED 2. RECOMMEND ENSURE BID - THIS WILL PROVIDE AN ADDITIONAL 350 KCALS, AND [address] TO FOLLOW-UP 2-3 DAYS, HIGH RISK LUIS AYALA [address]
[2021-02-13 15:05] VITALS: BP 95/52
--- NOTE | 2021-02-13 15:50 | NUR ---
PT WAS DISCHARGED FROM THE HOSPITAL. DISCHARGE INSTRUCTIONS WERE PROVIDED AND PT VERBALIZED UNDERSTANDING. ALL DISCHARGE PAPERWORK WAS SIGNED. PT IS STABLE AT THIS TIME. VS ARE STABLE. IV WAS REMOVED AND BLEEDING WAS CONTROLLED. ID BAND WAS ALSO REMOVED. SISTER IS AT THE BEDSIDE TO DRIVE PT HOME.
== END 2021-02-13 15:50 | disposition home or self-care (01) ==
LOC: MED 16:19 → MTU 21:12
PROVIDERS: ADMIT Internal Medicine; ATTEND Internal Medicine
DX: N39.0 Urinary tract infection, site not specified (principal); Z20.822 Contact with and (suspected) exposure to COVID-19; N32.1 Vesicointestinal fistula; D64.9 Anemia, unspecified; E87.6 Hypokalemia; K92.2 Gastrointestinal hemorrhage, unspecified; Z79.899 Other long term (current) drug therapy; Z87.891 Personal history of nicotine dependence
CPT/HCPCS: 36415; 71045; 74177; 80053; 81001; 83036; 83540; 83605; 83735; 83880; 85025; 85610; 87040; 87081; 87086; 87426; 96361; 96365; 96366; 96367; 96375; 96376; 99291; C9113; G0378; J0696; J2270; J2916; J3475; J3480; J7030; J7060; Q9967; Q0092

== ENCOUNTER 2021-03-27 13:25 | Inpatient (IN) | payer OTHER, SELFPAY ==
[~2021-03-27] VITALS: Ht 157.5 cm; Wt 70.3 kg
[2021-03-27 04:00] VITALS: BP 135/72
[~2021-03-27 13:25] MED LIST changes: -ACET-9525 PO; +FERR324T11 PO; +PANT40EC PO; +POTA10TE30 PO; -PYR100 PO
[2021-03-27 13:40] VITALS: BP 105/71
[2021-03-27] MEDS ORDERED: MORPHINE SULFATE 4 MG/ML SYR IVP ONE (14:20)
[2021-03-27 15:06] LABS: APPEARANCE,URINE SL CLOUDY (CLEAR); BILIRUBIN,URINE 1+ (NEGATIVE); BLOOD, URINE TRACE-I (NEGATIVE); COLOR,URINE YELLOW (YELLOW); LEUKOCYTE ESTERASE ,URINE 3+ (NEGATIVE); NITRITE, URINE POSITIVE (NEGATIVE); PH,URINE >=9.0 (5.0-9.0); UGLUCOSE NEGATIVE (NEGATIVE)
[2021-03-27 15:28] LABS: WBC,URINE 60-80 /HPF (0-5)
[2021-03-27 15:39] LABS: BASOPHILS # (AUTO) 0.1 K/uL (0.00-0.22); BASOPHILS % (AUTO) 0.9 % (0.0-2.0); EOSINOPHILS # (AUTO) 0.6 K/uL (0-0.4); EOSINOPHILS % (AUTO) 7.2 % (0.0-4.0); LYMPHOCYTES # (AUTO) 1.9 K/uL (2.5-16.5); MEAN CORPUSCULAR HEMOGLOBIN 27 pg (27-31); MEAN CORPUSCULAR HGB CONC 33 g/dL (33-37); MEAN CORPUSCULAR VOLUME 83.1 fL (80-94); MONOCYTES # (AUTO) 0.6 K/uL (0.8-1.0); MONOCYTES % (AUTO) 7.2 % (1.7-9.3); NEUTROPHILS # (AUTO) 5.4 K/uL (1.8-7.7); NEUTROPHILS % (AUTO) 62.7 % (42.2-75.2); PLATELET COUNT (AUTO) 483 K/uL (140-450); RED BLOOD CELL COUNT(AUTO) 1.69 MIL/uL (4.20-5.40); RED CELL DISTRIBUTION WIDTH 18.3 % (11.6-13.7); WHITE BLOOD COUNT (AUTO) 8.6 K/uL (4.8-10.8)
[2021-03-27 15:43] LABS: HEMATOCRIT 14.1 % (36-48); HEMOGLOBIN 4.6 g/dL (12.0-16.0)
[2021-03-27 15:54] LABS: ALBUMIN 2.3 g/dL (3.4-5.0); ANION GAP 9.4 (8-16); CARBON DIOXIDE 26.8 mmol/L (21-32); CREATININE 1.2 mg/dL (0.6-1.3); POTASSIUM 4.2 mmol/L (3.5-5.1)
[2021-03-27 16:29] LABS: PROTHROMBIN TIME 9.1 secs (10.8-13.4)
[2021-03-27] MEDS ORDERED: NACL 0.9% 1,000 ML IV ONE (16:45)
[2021-03-27] MEDS ORDERED: POTASSIUM CHLORIDE 10 MEQ TABER PO PRN (18:50)
[2021-03-27] MEDS ORDERED: KCL 20 MEQ/WATER INJ PREMIX 200 ML IV PRN (18:50)
[2021-03-27] MEDS ORDERED: HYDROcodone/APAP 5/325 MG 1 TAB TAB PO PRN (18:50)
[2021-03-27] MEDS ORDERED: MAGNESIUM OXIDE 400 MG TAB PO PRN (18:50)
[2021-03-27] MEDS ORDERED: MAG SULF 2000 MG/WATER PREMIX 50 ML IV PRN (18:50)
[2021-03-27] MEDS ORDERED: ONDANSETRON 4 MG/2 ML VIAL IVP PRN (18:50)
[2021-03-27] MEDS ORDERED: ACETAMINOPHEN 325 MG TAB PO PRN (18:50)
[2021-03-27] MEDS ORDERED: ZOLPIDEM 5 MG TAB PO PRN (18:50)
[2021-03-27] MEDS: MORPHINE SULFATE 4 MG/ML SYR IVP PRN (21:15)
[2021-03-28] VITALS: BP 80/46
[2021-03-28 04:00] VITALS: BP 135/71
[2021-03-28] MEDS: MORPHINE SULFATE 4 MG/ML SYR IVP PRN ×3 (04:00→21:21)
[2021-03-28 06:22] LABS: BASOPHILS # (AUTO) 0.1 K/uL (0.00-0.22); EOSINOPHILS # (AUTO) 0.7 K/uL (0-0.4); EOSINOPHILS % (AUTO) 9.2 % (0.0-4.0); HEMATOCRIT 28.5 % (36-48); HEMOGLOBIN 9.4 g/dL (12.0-16.0); LYMPHOCYTES # (AUTO) 1.7 K/uL (2.5-16.5); LYMPHOCYTES % (AUTO) 22.7 % (20.5-51.1); MEAN CORPUSCULAR HEMOGLOBIN 28 pg (27-31); MEAN CORPUSCULAR HGB CONC 33 g/dL (33-37); MEAN CORPUSCULAR VOLUME 85.4 fL (80-94); MONOCYTES # (AUTO) 0.7 K/uL (0.8-1.0); MONOCYTES % (AUTO) 9.6 % (1.7-9.3); NEUTROPHILS # (AUTO) 4.4 K/uL (1.8-7.7); NEUTROPHILS % (AUTO) 57.5 % (42.2-75.2); PLATELET COUNT (AUTO) 426 K/uL (140-450); RED BLOOD CELL COUNT(AUTO) 3.33 MIL/uL (4.20-5.40); WHITE BLOOD COUNT (AUTO) 7.6 K/uL (4.8-10.8)
[2021-03-28 08:00] VITALS: BP 112/68
[2021-03-28 12:00] VITALS: BP 112/68
[2021-03-28 16:00] VITALS: BP 107/62
[2021-03-28 20:54] VITALS: BP 96/44
[2021-03-29] MEDS: MORPHINE SULFATE 4 MG/ML SYR IVP PRN ×2 (06:17→13:15)
[2021-03-29 06:25] LABS: BASOPHILS # (AUTO) 0.1 K/uL (0.00-0.22); BASOPHILS % (AUTO) 0.8 % (0.0-2.0); EOSINOPHILS # (AUTO) 0.8 K/uL (0-0.4); EOSINOPHILS % (AUTO) 10.8 % (0.0-4.0); HEMATOCRIT 30.2 % (36-48); HEMOGLOBIN 9.9 g/dL (12.0-16.0); LYMPHOCYTES # (AUTO) 0.8 K/uL (2.5-16.5); LYMPHOCYTES % (AUTO) 10.9 % (20.5-51.1); MEAN CORPUSCULAR HEMOGLOBIN 27 pg (27-31); MEAN CORPUSCULAR HGB CONC 33 g/dL (33-37); MEAN CORPUSCULAR VOLUME 83.8 fL (80-94); MONOCYTES # (AUTO) 0.7 K/uL (0.8-1.0); MONOCYTES % (AUTO) 9.9 % (1.7-9.3); NEUTROPHILS # (AUTO) 4.7 K/uL (1.8-7.7); NEUTROPHILS % (AUTO) 67.6 % (42.2-75.2); PLATELET COUNT (AUTO) 467 K/uL (140-450)
[2021-03-29 06:29] VITALS: BP 93/56
[2021-03-29 08:00] VITALS: BP 98/64
[2021-03-29] MEDS ORDERED: MIDAZOLAM 5 MG/5 ML VIAL ONE (10:31)
[2021-03-29] MEDS ORDERED: LIDOCAINE 2% 1000 MG/50 ML VIAL INJ ONE (10:31)
[2021-03-29] MEDS ORDERED: fentaNYL citrate 0.05 MG/ML VIAL ONE (10:31)
[2021-03-29 16:00] VITALS: BP 100/58
[2021-03-29] MEDS ORDERED: FERR325E14 PO (16:30)
[2021-03-29] MEDS ORDERED: NITR100C7 PO (16:30)
[2021-03-29 16:51] VITALS: BP 100/58
== END 2021-03-29 17:30 | disposition home or self-care (01) | DRG 463 ==
LOC: MED 13:25 → MTU 18:50
PROVIDERS: ADMIT Internal Medicine; ATTEND Internal Medicine
PROC: 30233N1 Transfusion of Nonautologous Red Blood Cells into Peripheral Vein, Percutaneous Approach (ICD-10-PCS; 2021-03-27)
PROC: 0T9030Z Drainage of Right Kidney with Drainage Device, Percutaneous Approach (ICD-10-PCS; principal; 2021-03-28)
PROC: 0T9130Z Drainage of Left Kidney with Drainage Device, Percutaneous Approach (ICD-10-PCS; 2021-03-28)
DX: N30.00 Acute cystitis without hematuria (principal); D64.9 Anemia, unspecified; Z20.822 Contact with and (suspected) exposure to COVID-19; Z85.53 Personal history of malignant neoplasm of renal pelvis; Z90.710 Acquired absence of both cervix and uterus
CPT/HCPCS: 36415; 36430; 50432; 80053; 81001; 85025; 85610; 85730; 86886; 86900; 86901; 86920; 87081; 87086; 96361; 96374; 99291; C1729; J0696; J2001; J2250; J2270; J3010; J7060; P9016; Q9967

== ENCOUNTER 2021-04-08 11:11 | Emergency (ER) | payer OTHER, SELFPAY ==
[~2021-04-08] VITALS: Ht 157.5 cm; Wt 46.3 kg
[~2021-04-08 11:11] MED LIST changes: -CEFU500T73 PO; -FERR324T11 PO; +FERR325E14 PO; +NITR100C7 PO; -PANT40EC PO; -POTA10TE30 PO
[2021-04-08 11:22] VITALS: BP 121/82
--- NOTE | 2021-04-08 11:30 | NUR ---
Pt ambulated to bed 11 with steady/even gait
--- NOTE | 2021-04-08 11:46 | NUR ---
61/F BIB SELF WITH C/O VAGINAL AND RECTAL PAIN. PATIENT STATES SHE WAS ADMITTED HERE TWO WEEKS AGO FOR UTI, STATES AFTER BEING D/C SYMPTOMS REOCCURRED. PATIENT REPORTS GOING TO [facility] FOR SAME SYMPTOMS YESTERDAY AND WAS WAS D/C WITH AN RX OF ANTIBIOTICS BUT STATES "I DONT WANT TO FILL MY PRESCRIPTION UNTIL I SEE MY PRIMARY DOCTOR." PATIENT REPORTS 10/10 CONSTANT BURNING PAIN THAT WORSENS WITH URINATION. DENIES FEVER, CHILLS, SOB, CP.
[2021-04-08 11:52] LABS: BILIRUBIN,URINE NEGATIVE (NEGATIVE); BLOOD, URINE 2+ (NEGATIVE); COLOR,URINE YELLOW (YELLOW); LEUKOCYTE ESTERASE ,URINE 2+ (NEGATIVE); NITRITE, URINE NEGATIVE (NEGATIVE); UGLUCOSE NEGATIVE (NEGATIVE)
[2021-04-08] MEDS ORDERED: HYDROcodone/APAP 5/325 MG 1 TAB TAB PO ONE (12:30)
[2021-04-08 13:01] LABS: APPEARANCE,URINE CLOUDY (CLEAR)
[2021-04-08 13:12] LABS: RBC,URINE 11-20 (MOD) /HPF (0-5)
[2021-04-08 13:13] LABS: YEAST,URINE Many /HPF (None Seen)
[2021-04-08] MEDS ORDERED: FLUCONAZOLE 100 MG TAB PO ONE (13:20)
[2021-04-08] MEDS ORDERED: METR0.752 VG (13:22)
[2021-04-08] MEDS ORDERED: FLUC150T PO (13:22)
[2021-04-08] MEDS ORDERED: CRUSHER, PILL MC ONE (13:31)
--- NOTE | 2021-04-08 13:45 | NUR ---
Patient discharged with v/s stable. Written and verbal after care instructions ABOUT VAGINITIS given and explained. Patient alert, oriented and verbalized understanding of instructions. Ambulatory with steady gait. All questions addressed prior to discharge. ID band removed. Patient advised to follow up with PMD. Rx of FLUCONAZOLE AND METRONIDAZOLE given. Patient educated on indication of medication including possible reaction and side effects. Opportunity to ask questions provided and answered.
== END 2021-04-08 13:45 | disposition home or self-care (01) ==
LOC: MED 11:11
DX: B37.3 Candidiasis of vulva and vagina (principal); N39.0 Urinary tract infection, site not specified
CPT/HCPCS: 81001; 87086; 99283

== ENCOUNTER 2021-04-20 20:14 | Emergency (ER) | payer OTHER, SELFPAY ==
[~2021-04-20] VITALS: Ht 157.5 cm; Wt 46.7 kg
[~2021-04-20 20:14] MED LIST changes: +FLUC150T PO; +METR0.752 VG
[2021-04-20 20:29] VITALS: BP 114/74
--- NOTE | 2021-04-20 20:48 | NUR ---
PT AMBULATED TO ER BED 03 UNASSISTED
--- NOTE | 2021-04-20 21:15 | NUR ---
SWABS COLLECTED AND TAKEN TO LAB.
--- NOTE | 2021-04-20 21:36 | NUR ---
ELLIOTD MADE AWARE ABOUT PT BEING IN PAIN, STATED SHE DOESNT HAVE TIME TO SEE HER AT THIS TIME.
--- NOTE | 2021-04-20 22:01 | NUR ---
PT AMBULATED TO BED 7
--- NOTE | 2021-04-20 22:30 | NUR ---
REPORTS LOWER ABDOMINAL PAIN/SUPRAPUBIC PAIN WITH NAUSEA. HAS NEPHROSTOMY TUBES IN PLACE.
[2021-04-20 22:54] LABS: APPEARANCE,URINE SL CLOUDY (CLEAR); BILIRUBIN,URINE NEGATIVE (NEGATIVE); BLOOD, URINE 2+ (NEGATIVE); COLOR,URINE YELLOW (YELLOW); LEUKOCYTE ESTERASE ,URINE 2+ (NEGATIVE); NITRITE, URINE POSITIVE (NEGATIVE); PH,URINE 8.5 (5.0-9.0); UGLUCOSE NEGATIVE (NEGATIVE)
[2021-04-20 23:05] LABS: BASOPHILS % (AUTO) 0.5 % (0.0-2.0); EOSINOPHILS # (AUTO) 0.6 K/uL (0-0.4); EOSINOPHILS % (AUTO) 6.9 % (0.0-4.0); HEMATOCRIT 24.2 % (36-48); LYMPHOCYTES # (AUTO) 1.9 K/uL (2.5-16.5); LYMPHOCYTES % (AUTO) 22.1 % (20.5-51.1); MEAN CORPUSCULAR HEMOGLOBIN 27 pg (27-31); MEAN CORPUSCULAR HGB CONC 33 g/dL (33-37); MEAN CORPUSCULAR VOLUME 82.4 fL (80-94); MONOCYTES # (AUTO) 0.7 K/uL (0.8-1.0); MONOCYTES % (AUTO) 8.3 % (1.7-9.3); NEUTROPHILS # (AUTO) 5.3 K/uL (1.8-7.7); NEUTROPHILS % (AUTO) 62.2 % (42.2-75.2); PLATELET COUNT (AUTO) 462 K/uL (140-450); RED BLOOD CELL COUNT(AUTO) 2.94 MIL/uL (4.20-5.40); RED CELL DISTRIBUTION WIDTH 16.6 % (11.6-13.7); WHITE BLOOD COUNT (AUTO) 8.6 K/uL (4.8-10.8)
[2021-04-20 23:16] LABS: ALBUMIN 2.4 g/dL (3.4-5.0); ANION GAP 12.8 (8-16); CARBON DIOXIDE 25.8 mmol/L (21-32); CREATININE 1.1 mg/dL (0.6-1.3); POTASSIUM 3.6 mmol/L (3.5-5.1)
[2021-04-20 23:30] LABS: TOTAL BILIRUBIN 0.1 mg/dL (0.0-1.0)
[2021-04-20 23:35] LABS: RBC,URINE 0-5 /HPF (0-5); WBC,URINE 0-5 /HPF (0-5)
[2021-04-20] MEDS ORDERED: KETOROLAC 60 MG/2 ML VIAL IM ONE (23:40)
[2021-04-21] MEDS ORDERED: MORPHINE SULFATE 4 MG/ML SYR IM ONE (00:30)
--- NOTE | 2021-04-21 00:49 | NUR ---
COVID19 SEND OUT SPECIMEN OBTAINED AT THIS TIME. WALKED OVER TO LAB
[2021-04-21] MEDS ORDERED: CIPR500T4 PO (00:50)
--- NOTE | 2021-04-21 00:55 | NUR ---
Patient discharged with v/s stable. Written and verbal after care instructions given and explained. Patient verbalized understanding. Ambulatory with steady gait. RX CIPRO All questions addressed prior to discharge. Advised to follow up with PMD.
== END 2021-04-21 00:55 | disposition home or self-care (01) ==
LOC: MED 20:14
DX: N39.0 Urinary tract infection, site not specified (principal); Z20.822 Contact with and (suspected) exposure to COVID-19; I10 Essential (primary) hypertension; F17.200 Nicotine dependence, unspecified, uncomplicated; Z85.41 Personal history of malignant neoplasm of cervix uteri; Z79.899 Other long term (current) drug therapy; Z90.710 Acquired absence of both cervix and uterus
CPT/HCPCS: 36415; 71045; 80053; 81001; 83605; 85025; 87040; 87086; 87426; 87804; 96372; 99284; J1885; J2270; Q0092; U0003

== ENCOUNTER 2021-04-25 19:50 | Emergency (ER) | payer OTHER, SELFPAY ==
[~2021-04-25] VITALS: Ht 157.5 cm; Wt 46.7 kg
[~2021-04-25 19:50] MED LIST changes: +CIPR500T4 PO
[2021-04-25 20:40] VITALS: BP 120/45
--- NOTE | 2021-04-25 20:46 | NUR ---
patient in tent.
== END 2021-04-25 21:56 | disposition left against medical advice (07) ==
LOC: MED 19:50
DX: R53.83 Other fatigue (principal); R51.9 Headache, unspecified; R11.0 Nausea; R19.7 Diarrhea, unspecified; Z53.21 Procedure and treatment not carried out due to patient leaving prior to being seen by health care provider

== ENCOUNTER 2021-04-27 12:32 | Emergency (ER) | payer OTHER, SELFPAY ==
[~2021-04-27] VITALS: Ht 157.5 cm; Wt 46.7 kg
[2021-04-27 12:57] VITALS: BP 136/71
--- NOTE | 2021-04-27 13:25 | NUR ---
PT AMB TO BED 11
[2021-04-27 13:52] LABS: BASOPHILS # (AUTO) 0.1 K/uL (0.00-0.22); BASOPHILS % (AUTO) 0.9 % (0.0-2.0); EOSINOPHILS # (AUTO) 0.4 K/uL (0-0.4); EOSINOPHILS % (AUTO) 3.4 % (0.0-4.0); HEMATOCRIT 23.6 % (36-48); HEMOGLOBIN 7.8 g/dL (12.0-16.0); LYMPHOCYTES # (AUTO) 1.3 K/uL (2.5-16.5); LYMPHOCYTES % (AUTO) 12.5 % (20.5-51.1); MEAN CORPUSCULAR HEMOGLOBIN 27 pg (27-31); MEAN CORPUSCULAR HGB CONC 33 g/dL (33-37); MEAN CORPUSCULAR VOLUME 81.9 fL (80-94); MONOCYTES % (AUTO) 9.1 % (1.7-9.3); NEUTROPHILS # (AUTO) 7.8 K/uL (1.8-7.7); NEUTROPHILS % (AUTO) 74.1 % (42.2-75.2); PLATELET COUNT (AUTO) 513 K/uL (140-450); RED BLOOD CELL COUNT(AUTO) 2.89 MIL/uL (4.20-5.40); RED CELL DISTRIBUTION WIDTH 16.7 % (11.6-13.7); WHITE BLOOD COUNT (AUTO) 10.5 K/uL (4.8-10.8)
[2021-04-27 14:11] LABS: ALBUMIN 2.6 g/dL (3.4-5.0); ANION GAP 12.5 (8-16); CARBON DIOXIDE 26.7 mmol/L (21-32); CREATININE 2.2 mg/dL (0.6-1.3); POTASSIUM 4.2 mmol/L (3.5-5.1); TOTAL BILIRUBIN 0.2 mg/dL (0.0-1.0)
[2021-04-27] MEDS ORDERED: ONDANSETRON 4 MG/2 ML VIAL IVP ONE (14:35)
[2021-04-27] MEDS ORDERED: MORPHINE SULFATE 4 MG/ML SYR IVP ONE (14:35)
[2021-04-27] MEDS ORDERED: NACL 0.9% 1,000 ML IV ONE (14:35)
--- NOTE | 2021-04-27 14:38 | NUR ---
PT BEING TAKEN TO CT AT THIS TIME.
--- NOTE | 2021-04-27 15:10 | NUR ---
61 Y/O F BIB SELF FROM HOME, PATIENT PRESENTS TO ED WITH FLANK PAIN ON R SIDE THAT STARTED THIS MORNING WTH NAUSEA AND VOMITING. PT ALSO STATES SHE HAS BEEN HAVING VAGINAL BLEEDING WITH PELVIC TENDERNESS (CONTROLLED), DENIES VAGINAL DISCHARGE. DENIES DIARRHEA OR CONSTIPATION; PT HAS BILATERAL NEPHROSOTOMY TUBES. SKIN IS PINK/WARM/DRY; AAOX4 WITH EVEN AND STEADY GAIT; LUNGS CLEAR BL; HR EVEN AND REGULAR; PT DENIES ANY FEVER, CP, SOB, OR COUGH AT THIS TIME; PATIENT STATES PAIN OF 10/10 AT THIS TIME; PATIENT POSITIONED FOR COMFORT; HOB ELEVATED; BEDRAILS UP X2; BED DOWN. ER MD MADE AWARE OF PT STATUS. PMH: CERVICAL CA, KIDNEY STONES MED: NORCO NKA
[2021-04-27 15:26] LABS: APPEARANCE,URINE CLOUDY (CLEAR); BILIRUBIN,URINE NEGATIVE (NEGATIVE); BLOOD, URINE NEGATIVE (NEGATIVE); COLOR,URINE YELLOW (YELLOW); LEUKOCYTE ESTERASE ,URINE 1+ (NEGATIVE); NITRITE, URINE NEGATIVE (NEGATIVE); PH,URINE 8.5 (5.0-9.0); UGLUCOSE NEGATIVE (NEGATIVE)
[2021-04-27 15:45] LABS: RBC,URINE NONE SEEN /HPF (0-5); TRIPLE PHOSPHATE CRYSTAL,UR >100 /HPF (None Seen); WBC,URINE 0-5 /HPF (0-5)
[2021-04-27] MEDS ORDERED: cefTRIAXone 1,000 MG VIAL ONE (16:12)
[2021-04-27] MEDS ORDERED: NACL 0.9% 500 ML IV ONE (16:40)
--- NOTE | 2021-04-27 17:30 | NUR ---
PT NEPHROMSTOMY TUBE ON R SIDE WAS CHANGED TO NEW ONE AT THIS TIME.
--- NOTE | 2021-04-27 18:00 | NUR ---
Patient appears to be resting comfortably in bed. Vital Signs within normal limits. Respirations even and unlabored.
[2021-04-27] MEDS ORDERED: CEPH-588 PO (18:04)
[2021-04-27 18:41] VITALS: BP 136/71
--- NOTE | 2021-04-27 18:42 | NUR ---
Patient discharged with v/s stable. Written and verbal after care instructions given and explained. Patient alert, oriented and verbalized understanding of instructions. Ambulatory with steady gait TO CAR WITH DAUGHTER ALISHA. All questions addressed prior to discharge. ID band removed. Patient advised to follow up with PMD. Rx of CEPHALEXIN given. Patient educated on indication of medication including possible reaction and side effects. Opportunity to ask questions provided and answered.
== END 2021-04-27 18:42 | disposition home or self-care (01) ==
LOC: MED 12:32
DX: T83.092A Other mechanical complication of nephrostomy catheter, initial encounter (principal); N17.9 Acute kidney failure, unspecified; D64.9 Anemia, unspecified; Z85.41 Personal history of malignant neoplasm of cervix uteri; Z87.442 Personal history of urinary calculi
CPT/HCPCS: 36415; 74176; 80053; 81001; 81025; 83690; 85025; 87086; 87186; 96361; 96365; 96375; 99284; J0696; J2270; J2405; J7030

== ENCOUNTER 2021-05-07 22:32 | Emergency (ER) | payer OTHER, SELFPAY ==
[~2021-05-07] VITALS: Ht 157.5 cm; Wt 46.7 kg
[~2021-05-07 22:32] MED LIST changes: +CEPH-588 PO
[2021-05-07 22:37] VITALS: BP 114/69
--- NOTE | 2021-05-07 22:56 | NUR ---
patient to bed 8 ambulatory
[2021-05-07] MEDS ORDERED: ACETAMINOPHEN EXTRA STRENGTH 500 MG TAB ONE (23:30)
[2021-05-07] MEDS ORDERED: ACETAMINOPHEN EXTRA STRENGTH 500 MG TAB PO ONE (23:30)
[2021-05-07] MEDS ORDERED: MORPHINE SULFATE 2 MG/ML SYR IVP ONE (23:55)
[2021-05-07] MEDS ORDERED: NACL 0.9% 1,000 ML IV SCH (23:55)
[2021-05-07] MEDS ORDERED: ONDANSETRON 4 MG/2 ML VIAL IVP ONE (23:55)
[2021-05-08 00:08] LABS: BASOPHILS # (AUTO) 0.1 K/uL (0.00-0.22); BASOPHILS % (AUTO) 1.2 % (0.0-2.0); EOSINOPHILS # (AUTO) 0.7 K/uL (0-0.4); EOSINOPHILS % (AUTO) 6.9 % (0.0-4.0); HEMATOCRIT 21.7 % (36-48); HEMOGLOBIN 7.3 g/dL (12.0-16.0); LYMPHOCYTES # (AUTO) 1.8 K/uL (2.5-16.5); LYMPHOCYTES % (AUTO) 17.4 % (20.5-51.1); MEAN CORPUSCULAR HEMOGLOBIN 27 pg (27-31); MEAN CORPUSCULAR HGB CONC 34 g/dL (33-37); MEAN CORPUSCULAR VOLUME 81.4 fL (80-94); MONOCYTES # (AUTO) 1.2 K/uL (0.8-1.0); MONOCYTES % (AUTO) 11.6 % (1.7-9.3); NEUTROPHILS # (AUTO) 6.4 K/uL (1.8-7.7); NEUTROPHILS % (AUTO) 62.9 % (42.2-75.2); PLATELET COUNT (AUTO) 490 K/uL (140-450); RED BLOOD CELL COUNT(AUTO) 2.67 MIL/uL (4.20-5.40); RED CELL DISTRIBUTION WIDTH 17.1 % (11.6-13.7); WHITE BLOOD COUNT (AUTO) 10.1 K/uL (4.8-10.8)
[2021-05-08 00:23] LABS: ALBUMIN 2.2 g/dL (3.4-5.0); ANION GAP 13.3 (8-16); CARBON DIOXIDE 27.7 mmol/L (21-32); CREATININE 1.5 mg/dL (0.6-1.3); TOTAL BILIRUBIN 0.1 mg/dL (0.0-1.0)
--- NOTE | 2021-05-08 00:52 | NUR ---
IV INSERTED 20 [place] ON RIGHT WRIST. PT TOLERATED WELL
--- NOTE | 2021-05-08 01:01 | NUR ---
PT C/O PELVIC PAIN X 1 DAY WITH DIZZINESS AND LIGHTHEADNESS. PT DENIES VOMITING. PT HAS HX OF CERVICAL CANCER AND CURRENTLY HAS PELVIC CANCER. MEDICAL HX: CERVICAL CANCER, PELVIC CANCER, NEPHRPOMY BAG. MEDICFATIONS; NORCO NKA
[2021-05-08] MEDS ORDERED: MORPHINE SULFATE 2 MG/ML SYR ONE (01:19)
[2021-05-08] MEDS ORDERED: ONDANSETRON 4 MG/2 ML VIAL ONE (01:20)
[2021-05-08 01:35] LABS: APPEARANCE,URINE SL CLOUDY (CLEAR); BILIRUBIN,URINE NEGATIVE (NEGATIVE); BLOOD, URINE TRACE-I (NEGATIVE); COLOR,URINE YELLOW (YELLOW); LEUKOCYTE ESTERASE ,URINE 1+ (NEGATIVE); NITRITE, URINE NEGATIVE (NEGATIVE); PH,URINE >=9.0 (5.0-9.0); UGLUCOSE NEGATIVE (NEGATIVE)
[2021-05-08 01:40] LABS: RBC,URINE 0-5 /HPF (0-5); WBC,URINE 0-5 /HPF (0-5)
--- NOTE | 2021-05-08 01:54 | NUR ---
DAUGHTER ANA RUTLEDGE [phone]
[2021-05-08] MEDS ORDERED: cefTRIAXone 1,000 MG VIAL ONE (02:17)
--- NOTE | 2021-05-08 02:30 | NUR ---
Patient appears to be resting comfortably in bed. Vital Signs within normal limits. Respirations even and unlabored.BOTH BED RAILS DOWN AND BED AT LOWEST POSTION.
--- NOTE | 2021-05-08 03:14 | NUR ---
IV removed, catheter intact and site benign. Applied folded 4x4 gauze and tape to stop bleeding.
--- NOTE | 2021-05-08 03:15 | NUR ---
called sister anthony to pick patient up from hospital since patient is now d/c-- sister is aware. patient will be waiting in the lobby
--- NOTE | 2021-05-08 03:17 | NUR ---
patient was provided underwear and pads. pt ambulated to the bathroom with a steady gait.
--- NOTE | 2021-05-08 03:20 | NUR ---
Patient discharged with v/s stable. Written and verbal after care instructions given and explained. Patient verbalized understanding. Ambulatory with steady gait. ID band removed. All questions addressed prior to discharge. Advised to follow up with PMD.
--- NOTE | 2021-05-08 03:22 | NUR ---
The patient's care was reviewed and supervised by Taty Mo RN, RN.
[2021-05-08 03:23] VITALS: BP 112/64
[2021-05-08] MEDS ORDERED: MAG SULF 2000 MG/WATER PREMIX 50 ML IV PRN (15:15)
[2021-05-08] MEDS ORDERED: NACL 0.9% 1,000 ML IV SCH (15:15)
[2021-05-08] MEDS ORDERED: HYDROcodone/APAP 5/325 MG 1 TAB TAB PO PRN (15:15)
[2021-05-08] MEDS ORDERED: POTASSIUM CHLORIDE 10 MEQ TABER PO PRN (15:15)
[2021-05-08] MEDS ORDERED: ACETAMINOPHEN 325 MG TAB PO PRN (15:15)
[2021-05-08] MEDS ORDERED: MAGNESIUM OXIDE 400 MG TAB PO PRN (15:15)
[2021-05-08] MEDS ORDERED: MORPHINE SULFATE 4 MG/ML SYR IVP PRN (15:15)
[2021-05-08] MEDS ORDERED: KCL 20 MEQ/WATER INJ PREMIX 200 ML IV PRN (15:15)
[2021-05-09] MEDS ORDERED: DOCU-299 PO (15:45)
== END 2021-05-08 03:20 | disposition home or self-care (01) ==
LOC: MED 22:32
DX: N13.30 Unspecified hydronephrosis (principal); N28.89 Other specified disorders of kidney and ureter; D53.9 Nutritional anemia, unspecified; R11.0 Nausea; F17.290 Nicotine dependence, other tobacco product, uncomplicated; Z85.41 Personal history of malignant neoplasm of cervix uteri; Z71.6 Tobacco abuse counseling; Z98.890 Other specified postprocedural states
CPT/HCPCS: 36415; 74176; 80053; 81001; 83605; 85025; 87040; 87086; 96361; 96365; 96375; 99284; J0696; J2270; J2405; J7030

== ENCOUNTER 2021-05-08 11:55 | Observation (INO) | payer OTHER, SELFPAY ==
[~2021-05-08] VITALS: Ht 157.5 cm; Wt 58.5 kg
[2021-05-08 12:01] VITALS: BP 128/67
--- NOTE | 2021-05-08 12:07 | NUR ---
PT TO ER BED 12
--- NOTE | 2021-05-08 12:17 | NUR ---
61 Y/O FEMALE C/O PAIN TO RIGHT NEPHROSTOMY SITE RADIATING TO RIGHT FLANK 10/10, SHARP, UNPROVOKED. PT STATES SHE WAS RECENTLY DC FROM [facility] THIS MORNING FOR SAME. PT STATES HER NEPHROSTOMY IS NOT DRAING WHICH IS AROUND THE SAME TIME HER PAIN STARTED. SHE IS ALSO COMPLAINING OF VAGINAL DC WITH FOUL ODOR AND BURNING. NO BLOOD IN DRAINAGE OR URINE, +NAUSEA, +DIZZY. PT WALKED WITH STEADY GAIT TO BED UNASSISTED. PT IS LAYING IN BED WITH RAIL UP X1 AND IN THE LOWEST SETTING. PT STATES SHE TAKES NORCO FOR PAIN "BUT IT DOESN'T HELP ANYMORE." HX: CERVICAL AND PELVIC CANCER (CURRENTLY RECIEVING CHEMO) NKDA MEDS: PCN AND NORCO
[2021-05-08] MEDS ORDERED: KETOROLAC 30 MG/ML VIAL IVP ONE (12:25)
[2021-05-08] MEDS ORDERED: NACL 0.9% 1,000 ML IV ONE (12:25)
--- NOTE | 2021-05-08 13:00 | NUR ---
LABS AT BLOODSIDE
--- NOTE | 2021-05-08 13:05 | NUR ---
COVID HODA TEST OBTAINED AND WALKED TO LAB
[2021-05-08 13:14] LABS: BASOPHILS % (AUTO) 0.4 % (0.0-2.0); EOSINOPHILS # (AUTO) 0.3 K/uL (0-0.4); EOSINOPHILS % (AUTO) 3.9 % (0.0-4.0); HEMATOCRIT 22.4 % (36-48); HEMOGLOBIN 7.4 g/dL (12.0-16.0); LYMPHOCYTES # (AUTO) 0.2 K/uL (2.5-16.5); LYMPHOCYTES % (AUTO) 3.1 % (20.5-51.1); MEAN CORPUSCULAR HEMOGLOBIN 27 pg (27-31); MEAN CORPUSCULAR HGB CONC 33 g/dL (33-37); MEAN CORPUSCULAR VOLUME 81.3 fL (80-94); MONOCYTES # (AUTO) 0.6 K/uL (0.8-1.0); NEUTROPHILS # (AUTO) 6.8 K/uL (1.8-7.7); NEUTROPHILS % (AUTO) 85.6 % (42.2-75.2); PLATELET COUNT (AUTO) 493 K/uL (140-450); RED BLOOD CELL COUNT(AUTO) 2.75 MIL/uL (4.20-5.40); RED CELL DISTRIBUTION WIDTH 17.2 % (11.6-13.7); WHITE BLOOD COUNT (AUTO) 7.9 K/uL (4.8-10.8)
[2021-05-08 13:22] LABS: ALBUMIN 2.2 g/dL (3.4-5.0); ANION GAP 12.8 (8-16); CARBON DIOXIDE 26.6 mmol/L (21-32); CREATININE 2.1 mg/dL (0.6-1.3); POTASSIUM 4.4 mmol/L (3.5-5.1); TOTAL BILIRUBIN 0.2 mg/dL (0.0-1.0)
[2021-05-08 15:10] LABS: BILIRUBIN,URINE NEGATIVE (NEGATIVE); BLOOD, URINE TRACE-L (NEGATIVE); COLOR,URINE YELLOW (YELLOW); LEUKOCYTE ESTERASE ,URINE NEGATIVE (NEGATIVE); NITRITE, URINE NEGATIVE (NEGATIVE); PH,URINE 8.5 (5.0-9.0); UGLUCOSE NEGATIVE (NEGATIVE)
[2021-05-08 15:16] LABS: APPEARANCE,URINE CLEAR (CLEAR)
[2021-05-08] MEDS ORDERED: ACETAMINOPHEN 325 MG TAB PO PRN (16:15)
[2021-05-08] MEDS ORDERED: MAG SULF 2000 MG/WATER PREMIX 50 ML IV PRN (16:15)
[2021-05-08] MEDS ORDERED: KCL 20 MEQ/WATER INJ PREMIX 200 ML IV PRN (16:15)
[2021-05-08] MEDS ORDERED: HYDROcodone/APAP 5/325 MG 1 TAB TAB PO PRN (16:15)
[2021-05-08] MEDS ORDERED: POTASSIUM CHLORIDE 10 MEQ TABER PO PRN (16:15)
[2021-05-08] MEDS ORDERED: MAGNESIUM OXIDE 400 MG TAB PO PRN (16:15)
--- NOTE | 2021-05-08 16:51 | NUR ---
Patient appears to be resting comfortably in bed. Vital Signs within normal limits. Respirations even and unlabored.
--- NOTE | 2021-05-08 16:57 | NUR ---
NATHAN LOZANO CALLED FOR REPORTPatient will be admitted to care of DR KINNEY. Admited to Med/Surg. Will go to room 106B. Belongings list completed. Report to NATHAN LOZANO.
--- NOTE | 2021-05-08 16:59 | NUR ---
RECEIVED REPORT FROM ER NURSE. AWAITING FOR PATIENT TO ARRIVE.
--- NOTE | 2021-05-08 17:30 | NUR ---
RECEIVED PATIENT FROM ER NURSE. PT IS AOX4, ABLE TO MAKE NEEDS KNOWN. WILL ASSESS PATIENT AND ENDORSE TO RELATIONSHIP CONSULTANT NURSE. Addendum: 05/08/21 at 1947 by Eric Knutson RN RN RESPIRATIONS EVEN AND UNLABORED. ON ROOM AIR. SKIN IS WARM AND DRY. HAS IV ON LFA 22 G SALINE LOCKED. HAS BILATERAL NEPHROSTOMY TUBES. PATIENT DENIES PAIN AT THE MOMENT BUT SOMETIMES LEFT FLANK WILL HURT 10/10. COMPLAINS OF MINIMAL OUTPUT ON RIGHT NEPHROSTOMY. ABD IS SOFT, FLAT AND NON-DISTENDED. BOWEL SOUNDS ACTIVE IN ALL QUADRANTS. PLAN OF CARE DISCUSSED. CALL LIGHT WITHIN REACH. WILL CONTINUE TO MONITOR.
[2021-05-08 17:32] VITALS: BP 95/58
[2021-05-08] MEDS: NACL 0.9% 1,000 ML IV SCH (17:32)
--- NOTE | 2021-05-08 19:44 | NUR ---
ENDORSED TO ORACLE DRM CONSULTANT NURSE FOR CONTINUITY OF CARE. PT IS STABLE.
[2021-05-08 20:00] VITALS: BP 95/58
--- NOTE | 2021-05-08 20:00 | NUR ---
RECEIVED PATIENT FROM MORNING RN, PATIENT WAS ALERT AND ORIENTED X 4, DENIES PAIN, NO SIGNS OF DISTRESS. VERBALIZED HER CONCERN REGARDING HER 2ND COVID VACCINATION THAT SUPPOSED TO BE SCHEDULED TODAY. SHE ASKED IF SHE CAN GET HERE IN OUR HOSPITAL. TO BE ENDORSED IN THE MORNING.
[2021-05-08 21:14] LABS: CREATININE,URINE RANDOM 40 mg/dL (30-125); URINE SODIUM, RANDOM 134 mmol/l (40-220)
--- NOTE | 2021-05-08 21:34 | NUR ---
HEPARIN DOSE WAS HELD FOR PREPARATION FOR POSSIBLE IR PROCEDURE TOMORROW.
--- NOTE | 2021-05-08 22:40 | NUR ---
PATIENT WAS COMPLAINING OF SHARP PAIN IN HER RIGHT FLANK AREA, WHEN RN CHECKED HER BP= 96/57, HR=70 IN PATIENT'S RIGHT UPPER ARM, WHEN RECHECKED IN LEFT UPPER ARM BP=88/47, HR=60. RN EXPLAINED TO THE PATIENT THAT THE NARCOTIC PAIN MEDICATION WILL SURELY BRING DOWN THE BP EVEN MORE. RN WAS NOT COMFORTABLE GIVING NARCOTIC PAIN MEDICATION EVEN NORCO 5/325 MG, OFFERED TYLENOL 325 MG X 2 TABLETS. BUT, PATIENT REFUSED, SHE WASNTED A SHOT OF PAIN MEDICATION INSTEAD.
[2021-05-09 04:00] VITALS: BP 105/60
[2021-05-09] MEDS: NACL 0.9% 1,000 ML IV SCH (04:45)
--- NOTE | 2021-05-09 05:30 | NUR ---
PATIENT WAS COMPLAINING OF STABBING PAIN IN HER RIGHT LOWER BACK /. RN OFFERED NORCO 5/325 MG WHICH TH E ONLY AVAILABLE PAIN MEDICATION RIGHT NOW, OTHERWISE NEEDING TO CALL FOR A NEW ORDER FOR STRONGER MEDICATION LIKE MORPHINE 2 MG IVP. PATIENT REFUSED NORCO, STATED SHE WILL WAIT FOR MORPHINE UNTIL RN GOT AN ORDER FOR IT. RN PAGED DR. LOVE GOT AN ORDER FOR MORPHINE 2 MG IV PUSH Q 4 HOUR PRN FOR PAIN 7-10 SEVERE LEVEL.
--- NOTE | 2021-05-09 06:48 | NUR ---
MORPHINE 2 MG IVP GIVEN VIS PIV, TOLERATED WELL, CONTINUE MONITORING FOR PAIN LEVEL.
[2021-05-09] MEDS: MORPHINE SULFATE 2 MG/ML SYR IVP PRN ×2 (07:00→12:00)
[2021-05-09 07:29] LABS: PROTHROMBIN TIME 9.7 secs (10.8-13.4)
--- NOTE | 2021-05-09 07:43 | NUR ---
05/08/211999 REVIEWED, WILL CONTINUE WITH CURRENT PLAN OF CARE. MNURALD
--- NOTE | 2021-05-09 07:45 | NUR ---
RECEIVED PATIENT FROM [facility], PATIENT WAS ALERT AND ORIENTED X 4, DENIES PAIN, NO SIGNS OF DISTRESS. RESPIRATIONS EVEN AND UNLABORED. ON ROOM AIR AND NO DISTRESS NOTED. SKIN IS WARM, DRY, AND INTACT. HAS IV ON LFA 22G. INFUSING IVF WELL. INTACT AND PATENT. HAS TWO BILATERAL NEPHROSTOMY TUBES W/ OUTPUT IN LEFT BAG AND NONE IN RIGHT. C/O OF NO DRAINAGE IN RIGHT SIDE. DENIES PAIN AT THE MOMENT BUT WILL MEDICATE WITH PAIN MEDS PRN. PLAN OF CARE DISCUSSED. SAFETY PRECAUTIONS IN PLACE. CALL LIGHT WITHIN REACH. WILL CONTINUE TO MONITOR.
[2021-05-09 08:00] VITALS: BP 149/83
[2021-05-09] MEDS ORDERED: DOCUSATE SODIUM 100 MG GELCAP PO SCH (09:00)
--- NOTE | 2021-05-09 09:00 | NUR ---
ALL SCHEDULED MEDS GIVEN. PT IS STABLE. WILL CONTINUE TO MONITOR.
[2021-05-09 09:19] LABS: BASOPHILS # (AUTO) 0.1 K/uL (0.00-0.22); BASOPHILS % (AUTO) 0.8 % (0.0-2.0); EOSINOPHILS # (AUTO) 0.7 K/uL (0-0.4); EOSINOPHILS % (AUTO) 8.9 % (0.0-4.0); HEMATOCRIT 22.5 % (36-48); HEMOGLOBIN 7.4 g/dL (12.0-16.0); LYMPHOCYTES # (AUTO) 0.5 K/uL (2.5-16.5); LYMPHOCYTES % (AUTO) 6.5 % (20.5-51.1); MEAN CORPUSCULAR HEMOGLOBIN 27 pg (27-31); MEAN CORPUSCULAR HGB CONC 33 g/dL (33-37); MEAN CORPUSCULAR VOLUME 82.3 fL (80-94); MONOCYTES # (AUTO) 0.7 K/uL (0.8-1.0); MONOCYTES % (AUTO) 8.4 % (1.7-9.3); NEUTROPHILS % (AUTO) 75.4 % (42.2-75.2); PLATELET COUNT (AUTO) 476 K/uL (140-450); RED BLOOD CELL COUNT(AUTO) 2.74 MIL/uL (4.20-5.40); RED CELL DISTRIBUTION WIDTH 17.2 % (11.6-13.7); WHITE BLOOD COUNT (AUTO) 7.9 K/uL (4.8-10.8)
[2021-05-09 09:33] LABS: ANION GAP 11.8 (8-16); CARBON DIOXIDE 26.9 mmol/L (21-32); CREATININE 2.6 mg/dL (0.6-1.3); POTASSIUM 4.7 mmol/L (3.5-5.1); TOTAL BILIRUBIN 0.2 mg/dL (0.0-1.0)
--- NOTE | 2021-05-09 12:00 | NUR ---
PATIENT COMPLAINED OF 9/10 RIGHT LOWER BACK PAIN AND ABD PAIN. ADMINISTERED PRN PAIN MEDICATIONS PER MD ORDERED.
--- NOTE | 2021-05-09 12:14 | NUR ---
PATIENT HAS BEEN SCREENED AND CATEGORIZED LOW NUTRITION RISK. PATIENT WILL BE SEEN WITHIN 7 DAYS OF ADMISSION. 05/15/[address]
--- NOTE | 2021-05-09 14:24 | NUR ---
PATIENT TRANSPORTED TO RADIOLOGY FOR CT-BIOPSY/ASP-CATH PLACEMENT PROCEDURE
[2021-05-09] MEDS ORDERED: fentaNYL citrate 0.05 MG/ML VIAL ONE (14:26)
[2021-05-09] MEDS ORDERED: MIDAZOLAM 2 MG/2 ML VIAL ONE (14:26)
--- NOTE | 2021-05-09 14:44 | NUR ---
DC PLANNING:. PATIENT 61 YRS OLD FEMALE PATIENT WAS ADMITTED FROM HOME WITH A DX OF POP, CHRONIC FLANK PAIN. PATIENT HAS A HX OF CERVICAL CA FREQUENT UTI WITH ESBL S/P BILATERAL NEPHROSTOMY TUBES PLACEMENT. CONSULTED WITH IR TO REPLACE THE NEPHROSTOMY TUBE. ADMINISTERED IVF AND PAIN MEDS WITH MORPHINE. SEEN BY UROLOGIST DOCUMENTED FOLLOW UP OUTPATIENT . DC PLAN TO GO HOME WHEN STABLE. CM TO FOLLOW
[2021-05-09] MEDS ORDERED: DOCU-299 PO (15:45)
--- NOTE | 2021-05-09 15:45 | NUR ---
RECEIVED DISCHARGE ORDER FROM MD. WILL ENDORSE DISCHARGE INSTRUCTIONS TO PATIENT
--- NOTE | 2021-05-09 16:00 | NUR ---
ENDORSED DISCHARGE INSTRUCTIONS TO PATIENT. PATIENT VERBALIZED UNDERSTANDING AND SIGNED DISCHARGE FORMS
[2021-05-09 16:07] VITALS: BP 97/50
--- NOTE | 2021-05-09 16:34 | NUR ---
PATIENT DISCHARGED OF THE UNIT. IV AND ID BAND REMOVED. ESCORTED TO FRONT LOBBY TO BE PICKED UP BY SISTER. PT WAS STABLE PRIOR TO DISCHARGE.
--- NOTE | 2021-05-09 17:38 | NUR ---
DC PLANNING PATIENT IS A 61-YEAR-OLD FEMALE ADMITTED IN THE [facility]/ED ON 05/08/2021 DUE TO EXTREME ABDOMINAL PAIN. LO MET AT BEDSIDE TO DISCUSS AND GATHER HER COLLATERAL INFORMATION. PATIENT REPORTED LIVING AT HOME WITH HER FAMILY. REPORTED THAT HER SISTER DANDY BARTHOLOMEW AND HER MOTHER MARY ALICE BARTHOLOMEW ARE HER EMERGENCY CONTACTS. PER PATIENT SHE DO NOT HAVE ADVANCE DIRECTIVES, AND WAS INTERESTED ON A.D. INF. PACKET PROVIDED BY LO DURING THE VISIT. PATIENT REPORTED NOT HAVING ANY ISSUES GETTING OR TAKING HER MEDICATIONS FROM [facility] IN [place] IN [facility]. PATIENT STATED NOT HAVING OR NEEDING DME AT HOME AND BEEN ACTIVE AND INDEPENDENT AT HOME. PER PATIENT SHE SEE HER PCP IN [place] [place]. LO INFORMED PATIENT ABOUT THE IMPORTANCE OF FOLLOWING UP WITH PCP WITH IN 7 DAYS AFTER HER DISCHARGE FROM [facility] SW OFFERED TO MAKE HER FOLLOW UP APPOINTMENT AND PATIENT DECLINED, STATING THAT SHE WOULD LIKE TO MAKE HER OWN APPOINTMENT WITH MD ROCIO BELLAMY, AFTER SHE DISCHARGES FROM [facility]. PATIENT REPORTED THAT SHE WILL BE ASSISTED BY HER SISTER WITH TRANSPORTATION BACKDEERING WHEN SHE IS READY TO DC FROM [facility]. LO THANK HER FOR THE INFORMATION AND LEFT HER ROOM. SW WILL FOLLOW UP NEEDED. Addendum: 05/15/21 at 1050 by Maame Johnson CM LO CALLED PATIENT'S PCP OFFICE AT TO SCHEDULED A FOLLOW UP APPOINTMENT FOR PATIENT AFTER HER DC FROM [facility]. LO SPOKE TO TANESHA WHO PROVIDED A FOLLOW UP APPOINTMENT FOR PATIENT ON 05/18/2021 AT 10:15AM WITH MD. JOSESITO CHAN AT [address] [facility] [address] OLSON [address] [place] [id number]. PER TANESHA THAT IS THE SOONEST APPOINTMENT AVAILABLE FOR PATIENT DUE TO THE HOLIDAYS. THEREFORE, THIS POLYMERIZATION OVEN OPERATOR SCHEDULED APPT AND ENDED THE CALL. SW CALLED PATIENT AT TO INFORM PATIENT OF HER SCHEDULED APPOINTMENT BY THERE POLYMERIZATION OVEN OPERATOR WITH PCP WITHIN 7 DAYS OF HER DISCHARGE FROM [facility]. SW PROVIDED PATIENT WITH ALL INFORMATION TIME, DATE AND ADDRESS FOR HER FOLLOW UP APPOINTMENT. PATIENT AGREED TO ATTEND TO HER SCHEDULED APPOINTMENT AND THANK THESE POLYMERIZATION OVEN OPERATOR FOR THE CALL.
== END 2021-05-09 16:30 | disposition home or self-care (01) ==
LOC: MED 11:55 → MMU 16:14 → MTU 16:58
PROVIDERS: ADMIT Internal Medicine; ATTEND Internal Medicine
DX: T83.092A Other mechanical complication of nephrostomy catheter, initial encounter (principal); Z20.822 Contact with and (suspected) exposure to COVID-19; N13.30 Unspecified hydronephrosis; N17.9 Acute kidney failure, unspecified; E86.0 Dehydration; D64.9 Anemia, unspecified; F17.210 Nicotine dependence, cigarettes, uncomplicated; Z85.41 Personal history of malignant neoplasm of cervix uteri; Z79.899 Other long term (current) drug therapy; Z90.710 Acquired absence of both cervix and uterus
CPT/HCPCS: 36415; 75989; 80053; 81003; 82570; 83605; 83690; 84300; 85025; 85610; 85730; 87040; 87081; 87426; 96361; 96374; 96375; 96376; 99284; C1729; G0378; J1885; J2270; J2250; J3010

== ENCOUNTER 2021-08-21 17:34 | Emergency (ER) | payer OTHER, SELFPAY ==
[~2021-08-21] VITALS: Ht 157.5 cm; Wt 43.3 kg
[~2021-08-21 17:34] MED LIST changes: -CEPH-588 PO; -CIPR500T4 PO; +DOCU-299 PO; -NITR100C7 PO
[2021-08-21 17:41] VITALS: BP 119/79
--- NOTE | 2021-08-21 19:30 | NUR ---
PT AMBULATED TO BED 02.
--- NOTE | 2021-08-21 20:22 | NUR ---
NEPHROSTOMY CATHETER ON BILATERAL FLANK NOTED. NO REDNESS OR TENDERNESS. WITH DRESSING. PER PT, LEFT URINE BAG IS NOT DRAINING AND LEFT NEPHROSTOMY IS LEAKING.
[2021-08-21] MEDS ORDERED: FLUCONAZOLE 100 MG TAB PO ONE (21:00)
[2021-08-21] MEDS ORDERED: cephALEXin 500 MG CAP PO ONE (21:00)
--- NOTE | 2021-08-21 22:50 | NUR ---
PER PT REQUEST, CALLED MARY ALICE ([phone]) AND DENIZ ([phone]) TO REQUEST TRANSPORTATION. WAS ABLE TO SPEAK WITH MARY ALICE AND SHE WILL COME AND BINDERY MACHINE SETTER/SET UP OPERATOR PT.
[2021-08-21 22:52] VITALS: BP 142/78
--- NOTE | 2021-08-21 22:53 | NUR ---
Patient discharged with v/s stable. Written and verbal after care instructions given and explained. Patient verbalized understanding. Ambulatory with steady gait. All questions addressed prior to discharge. Advised to follow up with PMD. PT STATES SHE WILL ASSOCIATE MERCHANDISER THE MEDICATIONS PRESCRIBED TO HER BY A DOCTOR IN [place] FOR A BLADDER INFECTION.
== END 2021-08-21 22:53 | disposition home or self-care (01) ==
LOC: MED 17:34
DX: T83.512A Infection and inflammatory reaction due to nephrostomy catheter, initial encounter (principal); N39.0 Urinary tract infection, site not specified; B37.9 Candidiasis, unspecified; Z85.89 Personal history of malignant neoplasm of other organs and systems; Z79.899 Other long term (current) drug therapy; Z98.890 Other specified postprocedural states; Y83.8 Other surgical procedures as the cause of abnormal reaction of the patient, or of later complication, without mention of misadventure at the time of the procedure; Y92.89 Other specified places as the place of occurrence of the external cause
CPT/HCPCS: 99283

== ENCOUNTER 2022-01-11 14:56 | Inpatient (IN) | payer OTHER ==
[~2022-01-11] VITALS: Ht 157.5 cm; Wt 38.1 kg
[2022-01-11 15:02] VITALS: BP 106/50
--- NOTE | 2022-01-11 15:09 | NUR ---
PATIENT PRESENTS TO ED WITH LOW BACK PAIN, WEAKNESS, AND DIZZINESS X 2 DYAS. DENIES N/V/D; SKIN IS PINK/WARM/DRY; AAOX4 WITH EVEN AND STEADY GAIT; LUNGS CLEAR BL; HR EVEN AND REGULAR; PT DENIES ANY FEVER, CP, SOB, OR COUGH AT THIS TIME; PATIENT STATES PAIN OF 10/10 AT THIS TIME; VSS; PATIENT POSITIONED FOR COMFORT; HOB ELEVATED; BEDRAILS UP X2; BED DOWN. ER MD MADE AWARE OF PT STATUS.
[2022-01-11] MEDS ORDERED: MORPHINE SULFATE 2 MG/ML SYR IVP STA (15:23)
[2022-01-11] MEDS ORDERED: MORPHINE SULFATE 2 MG/ML SYR ONE (15:29)
[2022-01-11 15:49] LABS: APPEARANCE,URINE HAZY (CLEAR); BILIRUBIN,URINE NEGATIVE (NEGATIVE); BLOOD, URINE TRACE-I (NEGATIVE); COLOR,URINE YELLOW (YELLOW); LEUKOCYTE ESTERASE ,URINE 3+ (NEGATIVE); NITRITE, URINE NEGATIVE (NEGATIVE); PH,URINE 8.5 (5.0-9.0); UGLUCOSE NEGATIVE (NEGATIVE)
[2022-01-11 16:08] LABS: RBC,URINE 0-5 /HPF (0-5)
[2022-01-11 16:08] LABS: ALBUMIN 1.4 g/dL (3.4-5.0); CARBON DIOXIDE 21.2 mmol/L (21-32); CREATININE 3.1 mg/dL (0.6-1.3); TOTAL BILIRUBIN 0.1 mg/dL (0.0-1.0)
[2022-01-11 16:09] LABS: CALCIUM OXALATE CRYSTALS,UR 0-10 /HPF (None Seen)
[2022-01-11 16:10] LABS: TRIPLE PHOSPHATE CRYSTAL,UR 0-10 /HPF (None Seen)
[2022-01-11] MEDS ORDERED: NACL 0.9% 500 ML IV ONE (16:10)
[2022-01-11 16:11] LABS: OTHER CASTS, URINE None Seen /LPF (None Seen)
[2022-01-11 16:21] LABS: POTASSIUM 3.1 mmol/L (3.5-5.1)
[2022-01-11 16:24] LABS: BASOPHILS % (AUTO) 0.3 % (0.0-2.0); EOSINOPHILS # (AUTO) 0.1 K/uL (0-0.4); EOSINOPHILS % (AUTO) 1.2 % (0.0-4.0); HEMOGLOBIN 7.2 g/dL (12.0-16.0); LYMPHOCYTES # (AUTO) 0.7 K/uL (2.5-16.5); LYMPHOCYTES % (AUTO) 6.1 % (20.5-51.1); MEAN CORPUSCULAR HEMOGLOBIN 28 pg (27-31); MEAN CORPUSCULAR HGB CONC 33 g/dL (33-37); MEAN CORPUSCULAR VOLUME 84.3 fL (80-94); MONOCYTES # (AUTO) 0.4 K/uL (0.8-1.0); MONOCYTES % (AUTO) 3.9 % (1.7-9.3); NEUTROPHILS # (AUTO) 9.8 K/uL (1.8-7.7); NEUTROPHILS % (AUTO) 88.5 % (42.2-75.2); PLATELET COUNT (AUTO) 427 K/uL (140-450); RED BLOOD CELL COUNT(AUTO) 2.61 MIL/uL (4.20-5.40); RED CELL DISTRIBUTION WIDTH 16.5 % (11.6-13.7); WHITE BLOOD COUNT (AUTO) 11.1 K/uL (4.8-10.8)
[2022-01-11 16:59] LABS: ANION GAP 16.1 (8-16)
[2022-01-11] MEDS ORDERED: POTASSIUM CHLORIDE 20% 40 MEQ/15 ML UDC PO ONE (17:05)
--- NOTE | 2022-01-11 17:28 | NUR ---
HODA specimen obtained, handed to CPT Shilpa at bedside.
[2022-01-11] MEDS ORDERED: MSCON15 PO (18:09)
[2022-01-11] MEDS ORDERED: ACETAMINOPHEN 325 MG TAB PO PRN (18:15)
[2022-01-11] MEDS ORDERED: PIPERACILLIN/TAZOBACTAM 3.375 GM in DEXTROSE 5% 50 ML IV ONE (18:15)
[2022-01-11] MEDS ORDERED: NACL 0.9% 1,000 ML IV ONE (18:15)
[2022-01-11] MEDS ORDERED: PIPERACILLIN/TAZOBACTAM 3.375 GM VIAL IV ONE (18:25)
--- NOTE | 2022-01-11 19:16 | NUR ---
RECIEVED REPORT FROM MARTA MIRANDA
[2022-01-11] MEDS ORDERED: cefTRIAXone 1,000 MG VIAL ONE (19:22)
[2022-01-11] MEDS: NACL 0.9% 1,000 ML IV SCH (19:35)
[2022-01-11] MEDS: MORPHINE SULFATE 4 MG/ML SYR IVP PRN (21:45)
--- NOTE | 2022-01-11 22:15 | NUR ---
PT IS ASLEEP WHEN NURSE DOING ROUNDS
--- NOTE | 2022-01-11 23:08 | NUR ---
Patient will be admitted to care of DR LOVE. Admited to TELE. Will go to room 115. Belongings list completed. Report to MARTA SOUSA.
--- NOTE | 2022-01-11 23:10 | NUR ---
RECEIVED ENDORSEMENT FROM ER NURSE FOR CONTINUITY OF PT CARE. PT ARRIVE AT THE UNIT VIA GURNEY. PT IS AWAKE, ALERT AND VERBALLY RESPONSIVE. PT IS FULL CODE, NOT KNOWN ALLERGY. RESPIRATION EVEN, NO SOB OR DISTRESS. SKIN COLOR IS NORMAL. PT IS ON CONSISTENT CARB DIET. SALINE LOCK ON LEFT AC OF 18 G INTACT AND PATENT, IV FLUID NORMAL SALINE IS INFUSING WELL AT 80 ML/HR. NO REDNESS/RASHES OR SIGN/SYMPTOM OF INFECTION ON SKIN SURROUNDING IV SITE. PT VERBALIZED OF PAIN 3/10 ON LOWER ABDOMINAL AREA BUT BEARABLE. PT RECEIVED PAIN MEDICATION WHEN SHE WAS IN ER. PT HAS DOUBLE NEPHORSTOMY TUBE ON LEFT AND RIGHT MIDDLE BACK. SOME URINE DRAINS INTO THE BAG VIA GRAVITY, NO HEMATURIA ON BOTH NEPHROSTOMY. PORT-A-CATH PRESENT ON RIGHT UPPER CHEST FOR CHEMOTHERAPY ACCESS.
[2022-01-12] VITALS (17 sets, daily range): BP systolic 66–154; BP diastolic 32–90
--- NOTE | 2022-01-12 00:10 | NUR ---
PT IS ASLEEP. NO FACIAL GRIMACING.
[2022-01-12] MEDS: NACL 0.9% 1,000 ML IV SCH (06:45)
--- NOTE | 2022-01-12 07:30 | NUR ---
ENDORSED TO DAY SHIFT NURSE FOR CONTINUITY OF PT CARE. PT IS SLEEPING BUT AROUSABLE ON STIMULI.
--- NOTE | 2022-01-12 07:31 | NUR ---
RECEIVED REPORT FROM EXTRUDER OPERATOR NURSE FOR CONTINUITY OF CARE. PT IS SLEEPING, EASILY AROUSABLE BY VERBAL STIMULI. RESPIRATIONS EVEN AND UNLABORED ON RA. NO DISTRESS NOTED. PT ON TELE MONITOR. IV SITE AT LAC 18G INFUSING NS AT 80ML/HR. CALL LIGHT WITHIN REACH. SAFETY PRECAUTIONS IN PLACE. WILL CONTINUE TO MONITOR.
[2022-01-12 07:44] LABS: BASOPHILS % (AUTO) 0.1 % (0.0-2.0); EOSINOPHILS # (AUTO) 0.1 K/uL (0-0.4); EOSINOPHILS % (AUTO) 0.4 % (0.0-4.0); LYMPHOCYTES # (AUTO) 0.3 K/uL (2.5-16.5); LYMPHOCYTES % (AUTO) 1.4 % (20.5-51.1); MEAN CORPUSCULAR HEMOGLOBIN 27 pg (27-31); MEAN CORPUSCULAR HGB CONC 32 g/dL (33-37); MEAN CORPUSCULAR VOLUME 84.8 fL (80-94); MONOCYTES # (AUTO) 0.9 K/uL (0.8-1.0); MONOCYTES % (AUTO) 4.3 % (1.7-9.3); NEUTROPHILS # (AUTO) 18.4 K/uL (1.8-7.7); NEUTROPHILS % (AUTO) 93.8 % (42.2-75.2); PLATELET COUNT (AUTO) 350 K/uL (140-450); RED BLOOD CELL COUNT(AUTO) 2.14 MIL/uL (4.20-5.40); WHITE BLOOD COUNT (AUTO) 19.7 K/uL (4.8-10.8)
[2022-01-12 07:57] LABS: ANION GAP 16.1 (8-16); CARBON DIOXIDE 18.2 mmol/L (21-32); CREATININE 3.1 mg/dL (0.6-1.3); POTASSIUM 4.3 mmol/L (3.5-5.1)
--- NOTE | 2022-01-12 08:02 | NUR ---
SBP AT 60'S. MD MADE AWARE. MD ORDERED 1L LR BOLUS AND MIDODRINE 10MG TID.
[2022-01-12] MEDS ORDERED: LACTATED RINGERS 1,000 ML IV SCH (08:05)
--- NOTE | 2022-01-12 08:17 | NUR ---
RECEIVED CRITICAL LAB VALUE HG 5.9. ENDORSED PT TO RN NIVIA. BOLUS LACTATED RINGER INFUSING. PT ON [place] POSITION. PT IS STABLE.
[2022-01-12 08:18] LABS: HEMOGLOBIN 5.9 g/dL (12.0-16.0)
[2022-01-12 08:19] LABS: HEMATOCRIT 18.1 % (36-48)
[2022-01-12] MEDS ORDERED: MIDODRINE 5 MG TAB PO SCH (08:30)
--- NOTE | 2022-01-12 08:34 | NUR ---
RECEIVED REPORT FROM CONCETTA LOZANO FOR CONTINUITY OF CARE. PT A&0X4. SR ON MONITOR, 18G IV TO LAC. HYPOTENSIVE, SYSTOLIC IN THE 65-70'S. ROOM AIR. RECEIVING BOLUS OF LR. CONTINENT OF BOWEL AND BLADDER. STANDARD PRECAUTION. CALL LIGHT WITHIN REACH.
[2022-01-12] MEDS: MIDODRINE 5 MG TAB PO SCH ×3 (08:55→19:00)
--- NOTE | 2022-01-12 09:47 | NUR ---
SEEN AND EXAMINED BY DR. LOVE. ORDERS RECEIVED.
--- NOTE | 2022-01-12 09:48 | NUR ---
SEEN AND EXAMINED BY DR. GILES.
[2022-01-12] MEDS: NACL 0.45% 1,000 ML IV SCH ×3 (10:30→21:33)
[2022-01-12] MEDS ORDERED: NOREPINEPHRINE 4 MG in DEXTROSE 5% 250 ML IV PRN (11:30)
--- NOTE | 2022-01-12 12:02 | NUR ---
STARTED 22G IV TO L HAND. PATENT. GOOD BLOOD RETURN. SALINE LOCK.
--- NOTE | 2022-01-12 12:20 | NUR ---
PAGED DR. RICHARDS ABOUT HYPOTENSION. ORDERS RECEIVED.
--- NOTE | 2022-01-12 12:35 | NUR ---
PICC NURSE ASHLEY AT THE BEDSIDE.
[2022-01-12] MEDS ORDERED: ALBUMIN HUMAN 5 % 250 ML IV ONE ×2 (12:40→16:30)
[2022-01-12] MEDS ORDERED: NACL 0.9% 1,000 ML IV ONE ×2 (12:40→16:00)
[2022-01-12] MEDS ORDERED: DOPamine 400 MG/D5W PREMIX 250 ML IV PRN (12:40)
--- NOTE | 2022-01-12 13:25 | NUR ---
UNIT OF PRBC'S INFUSED. PT TOLERATED WELL. NO FEVER, HIVES, OR SIGNS OF TRANSFUSION REACTION.
[2022-01-12] MEDS: MEROPENEM 1,000 MG in NACL 0.9% 50 ML IV SCH (15:03)
--- NOTE | 2022-01-12 15:12 | NUR ---
SEEN AND EXAMINED BY DR. PETERS. ORDERS RECEIVED.
--- NOTE | 2022-01-12 17:00 | NUR ---
2ND UNIT OF PRBC'S INFUSED. PT TOLERATED WELL. NO FEVER, HIVES, OR SIGNS OF TRANSFUSION REACTION. ORDERED CBC TO FOLLOW UP.
[2022-01-12] MEDS ORDERED: ATROPINE 1 MG/10 ML SYR IVP ONE ×2 (17:11→20:39)
[2022-01-12] MEDS: ATROPINE 0.4 MG/ML VIAL IVP PRN ×2 (17:27→21:04)
--- NOTE | 2022-01-12 18:43 | NUR ---
LAB AT BEDSIDE FOR CBC. THIS GRAIN AND YEAST PLANTS SUPERVISOR SHALOM FROM [facility] LINE FOR LAB DRAW.
--- NOTE | 2022-01-12 18:47 | NUR ---
VSS. ALL COMFORT NEEDS MET AT THIS TIME. BP 128/79. DOPAMINE IS AT 2 MCG/KG/MIN. PT EATING DINNER IN BED.
[2022-01-12 18:49] LABS: HEMOGLOBIN 9.8 g/dL (12.0-16.0); MEAN CORPUSCULAR HEMOGLOBIN 28 pg (27-31); MEAN CORPUSCULAR HGB CONC 33 g/dL (33-37); MEAN CORPUSCULAR VOLUME 85.9 fL (80-94); PLATELET COUNT (AUTO) 263 K/uL (140-450); RED BLOOD CELL COUNT(AUTO) 3.49 MIL/uL (4.20-5.40); RED CELL DISTRIBUTION WIDTH 15.6 % (11.6-13.7); WHITE BLOOD COUNT (AUTO) 15.5 K/uL (4.8-10.8)
--- NOTE | 2022-01-12 19:20 | NUR ---
ENDORSED REPORT TO OSMEL SOFTWARE PROGRAMMER RN FOR CONTINUITY OF CARE.
--- NOTE | 2022-01-12 19:30 | NUR ---
RECEIVED REPORT FROM DAY SHIFT (MARTA CERON). PATIENT IS AWAKE, ALERT AND ORIENTED; SITTING UP IN BED. HAS DOPAMINE DRIP RUNNING AT 2MCG/MIN, AND 1/2 NS INFUSING AT 200ML/HR. WILL CONTINUE TO MONITOR PATIENT VITALS.
[2022-01-12 20:07] LABS: EOSINOPHILS % (MANUAL) 1 % (0-4); LYMPHOCYTES % (MANUAL) 3 % (20-46); MONOCYTES % (MANUAL) 4 % (5-12)
--- NOTE | 2022-01-12 21:07 | NUR ---
PATIENT NOTED WITH HEART RATE OF 46; ADMINISTERED 0.4MG ATROPINE PER MD ORDERS. WILL CONTINUE TO MONITOR PATIENT'S VITAL SIGNS
--- NOTE | 2022-01-12 21:56 | NUR ---
PATIENT CONTINUES RESTING COMFORTABLY, EASILY AROUSED TO VOICE AND/OR STIMULI. CURRENT HEART RATE 68. WILL CONTINUE TO MONITOR PATIENT
--- NOTE | 2022-01-12 22:50 | NUR ---
ASSISTED PATIENT TO BEDSIDE COMMODE. PATIENT ALSO DRAINED NEPHROSTOMY TUBES ASSISTED PATIENT BACK TO BED. WILL CONTINUE TO MONITOR VITAL SIGNS FOR THIS PATIENT
[2022-01-13] VITALS (24 sets, daily range): BP systolic 96–148; BP diastolic 55–98
[2022-01-13] MEDS ORDERED: ATROPINE 1 MG/10 ML SYR IVP ONE (01:31)
[2022-01-13] MEDS: ATROPINE 0.4 MG/ML VIAL IVP PRN ×3 (01:46→15:13)
[2022-01-13] MEDS: MEROPENEM 1,000 MG in NACL 0.9% 50 ML IV SCH ×2 (01:56→13:10)
[2022-01-13] MEDS: NACL 0.45% 1,000 ML IV SCH ×2 (02:50→07:52)
--- NOTE | 2022-01-13 04:31 | NUR ---
BP NOTED TO BE 85/46 (MAP = 65) HR 47 RESTARTED LEVOPHED PER MD ORDERS WILL CONTINUE TO TITRATE MEDICATION AND MONITOR VITALS
--- NOTE | 2022-01-13 04:58 | NUR ---
PLACED PATIENT ON BEDPAN
--- NOTE | 2022-01-13 06:05 | NUR ---
BLOOD DRAW FROM CENTRAL LINE; SAMPLE GIVEN TO COUNCILOR FOR PROCESSING.
--- NOTE | 2022-01-13 06:20 | NUR ---
PATIENT REPORTS LOWER ABDOMINAL PAIN AND FEELING NAUSEATED. STATES THAT SHE NEEDS TO VOMIT. PROVIDED PATIENT WITH BASIN TO VOMIT INTO. WILL ADMINISTER ZOFRAN PER MD ORDERS AND CONTINUE TO MONITOR PATIENT Addendum: 01/13/22 at 0656 by Dilcia Landry RN VOMIT WAS DEEP GREEN COLOR, LIQUID WITH BITS OF FOOD.
[2022-01-13] MEDS: ONDANSETRON 4 MG/2 ML VIAL IVP PRN ×2 (06:29→10:36)
[2022-01-13 07:17] LABS: BASOPHILS # (AUTO) 0.1 K/uL (0.00-0.22); BASOPHILS % (AUTO) 0.3 % (0.0-2.0); EOSINOPHILS # (AUTO) 0.4 K/uL (0-0.4); EOSINOPHILS % (AUTO) 2.4 % (0.0-4.0); HEMATOCRIT 36.4 % (36-48); HEMOGLOBIN 11.9 g/dL (12.0-16.0); LYMPHOCYTES # (AUTO) 0.7 K/uL (2.5-16.5); MEAN CORPUSCULAR HEMOGLOBIN 28 pg (27-31); MEAN CORPUSCULAR HGB CONC 33 g/dL (33-37); MEAN CORPUSCULAR VOLUME 85.6 fL (80-94); MONOCYTES # (AUTO) 0.7 K/uL (0.8-1.0); MONOCYTES % (AUTO) 3.7 % (1.7-9.3); NEUTROPHILS # (AUTO) 16.2 K/uL (1.8-7.7); PLATELET COUNT (AUTO) 280 K/uL (140-450); RED BLOOD CELL COUNT(AUTO) 4.25 MIL/uL (4.20-5.40); RED CELL DISTRIBUTION WIDTH 15.2 % (11.6-13.7); WHITE BLOOD COUNT (AUTO) 18.1 K/uL (4.8-10.8)
--- NOTE | 2022-01-13 07:30 | NUR ---
Received pt alert and oriented x4, on O2 @2L/min via N/C. Sinus rhythm on monitor. Abd soft and non distended. Bilat nephrostomy tube in place and draining to gravity. Peripheral IV 18 gauge intact and patent. Peripheral IV 22 gauge on left hand intact and patent infusing 1/2 NS @200ml/hr. PICC line on right upper arm intact and patent infusing dopamine @ 2mcg/kg/min and levophed @ 4mcg/min. Pt reports feeling cold. Velma hugger in place. Safety precautions in place.
[2022-01-13 07:35] LABS: ANION GAP 17.4 (8-16); CARBON DIOXIDE 14.3 mmol/L (21-32); CREATININE 2.2 mg/dL (0.6-1.3); POTASSIUM 3.7 mmol/L (3.5-5.1)
[2022-01-13] MEDS: MIDODRINE 5 MG TAB PO SCH ×3 (07:52→18:17)
[2022-01-13] MEDS: MORPHINE SULFATE 4 MG/ML SYR IVP PRN ×3 (07:53→21:25)
--- NOTE | 2022-01-13 08:57 | NUR ---
Dr. Rose at bedside examining pt. New order received.
[2022-01-13] MEDS ORDERED: NACL 0.45% 1,000 ML IV SCH (09:10)
[2022-01-13 09:12] LABS: LYMPHOCYTES % (AUTO) 4.1 % (20.5-51.1); NEUTROPHILS % (AUTO) 89.5 % (42.2-75.2)
[2022-01-13] MEDS ORDERED: SODIUM BICARBONATE 8.4% 100 MEQ in NACL 0.45% 1,000 ML IV SCH (09:30)
--- NOTE | 2022-01-13 09:31 | NUR ---
Dr. Hurd at bedside examining pt. New orders received.
[2022-01-13] MEDS: SODIUM BICARBONATE 8.4% 100 MEQ in NACL 0.45% 1,000 ML IV SCH ×2 (10:35→21:25)
--- NOTE | 2022-01-13 11:03 | NUR ---
PATIENT HAS BEEN SCREENED AND CATEGORIZED HIGH NUTRITION RISK. PATIENT WILL BE SEEN WITHIN 1-2 DAYS OF ADMISSION. 01/12/22-01/13/[address]
[2022-01-13] MEDS: ALBUMIN HUMAN 25% 100 ML IV SCH ×2 (12:10→21:42)
--- NOTE | 2022-01-13 12:30 | NUR ---
TUB OPERATOR AT BEDSIDE.
--- NOTE | 2022-01-13 13:15 | NUR ---
01/13/2022 RD INITIAL ASSESSMENT COMPLETED PLEASE REFER TO NUTRITION ASSESSMENT UNDER CARE ACTIVITY FOR ESTIMATED NUTRITIONAL NEEDS. 1.RECOMMEND RENAL SOFT DIET. WHEN/IF MEDICALLY APPROPRIATE, MAY UPGRADE TO RENAL PT TOLERATES. 2.RECOMMEND NEPRO TID TO OPTIMIZE NUTRITIONAL NEEDS. 3.MONITOR PO INTAKE AND WEIGHT. 4.RD TO FOLLOW-UP IN 2-3 DAYS PATIENT IS HIGH RISK. CHANDRA LEWIS RD
--- NOTE | 2022-01-13 14:02 | NUR ---
SPOKE TO WALTER (DAUGHTER -IN LAW) ON PHONE REGARDING PT'S CONDITION PER PT REQUESTED. ALL QUESTIONS ANSWERED.
--- NOTE | 2022-01-13 14:10 | NUR ---
Seen and examined by Dr. Maravilla (urologist). New orders received.
--- NOTE | 2022-01-13 15:37 | NUR ---
Seen and examined by Dr. Kim. No new orders.
--- NOTE | 2022-01-13 16:45 | NUR ---
Dr. Jc at bedside examining pt.
--- NOTE | 2022-01-13 19:15 | NUR ---
Endorsed to interpreter nurse Dilcia for continuity of care. NPO after midnight sign posted. Vital signs stable.
--- NOTE | 2022-01-13 19:20 | NUR ---
RECEIVED REPORT FROM DAY SHIFT (MARTA LEARY). PATIENT IS CURRENTLY AWAKE, ALERT AND ORIENTED. SITTING UP IN BED. PATIENT CURRENTLY HAS LEVOPHED RUNNING AT 2MCG/MIN. 1/2 NS WITH BICARB INFUSING AT 100ML/HR. PATIENT HAS BILATERAL NEPHROSTOMY TUBES. HAS PICC LINE BHAVYA, PERIPHERAL IV LEFT FOREARM 18G, PERIPHERAL IV LEFT HAND 22G. HAS PITTING EDEMA, BOTH FEET EDEMA BOTH HANDS. HAS COMPLAINTS OF NAUSEA AND SLIGHT ABDOMINAL DISCOMFORT. WILL CONTINUE TO MONITOR VITALS
--- NOTE | 2022-01-13 22:58 | NUR ---
PATIENT RESTING COMFORTABLY; WILL CONTINUE TO MONITOR HR AND BLOOD PRESSURE
[2022-01-14] VITALS (23 sets, daily range): BP systolic 81–167; BP diastolic 48–84
--- NOTE | 2022-01-14 01:15 | NUR ---
PATIENT AWAKE IN BED, PLAYING GAMES ON CELL PHONE. DOES NOT APPEAR TO BE IN DISTRESS, WILL CONTINUE TO MONITOR HR AND BP
--- NOTE | 2022-01-14 01:25 | NUR ---
PATIENT NOTED WITH LOW BLOOD PRESSURE BP = 87/57 INCREASED LEVOPHED TO 4MCG/MIN WILL CONTINUE TO MONITOR PATIENT
[2022-01-14] MEDS: ONDANSETRON 4 MG/2 ML VIAL IVP PRN (02:00)
[2022-01-14] MEDS: MEROPENEM 1,000 MG in NACL 0.9% 50 ML IV SCH ×2 (02:00→15:36)
[2022-01-14] MEDS ORDERED: NOREPINEPHRINE 4 MG/4 ML VIAL IV ONE (02:09)
--- NOTE | 2022-01-14 02:20 | NUR ---
DC'D LEFT FOREARM PERIPHERAL IV, CATHETER INTACT DC'D LEFT HAND PERIPHERAL IV, CATHETER INTACT
[2022-01-14] MEDS: NOREPINEPHRINE 8 MG in DEXTROSE 5% 250 ML IV PRN (02:40)
--- NOTE | 2022-01-14 04:00 | NUR ---
BLOOD DRAW FROM PICC LINE, SAMPLE GIVEN TO ORACLE APPLICATIONS DEVELOPER.
[2022-01-14] MEDS: ALBUMIN HUMAN 25% 100 ML IV SCH (05:06)
[2022-01-14 05:58] LABS: BASOPHILS # (AUTO) 0.1 K/uL (0.00-0.22); BASOPHILS % (AUTO) 0.4 % (0.0-2.0); EOSINOPHILS # (AUTO) 0.5 K/uL (0-0.4); EOSINOPHILS % (AUTO) 3.4 % (0.0-4.0); HEMATOCRIT 33.2 % (36-48); HEMOGLOBIN 11.1 g/dL (12.0-16.0); LYMPHOCYTES # (AUTO) 1.1 K/uL (2.5-16.5); LYMPHOCYTES % (AUTO) 7.1 % (20.5-51.1); MEAN CORPUSCULAR HEMOGLOBIN 28 pg (27-31); MEAN CORPUSCULAR HGB CONC 33 g/dL (33-37); MEAN CORPUSCULAR VOLUME 84.9 fL (80-94); MONOCYTES # (AUTO) 0.9 K/uL (0.8-1.0); MONOCYTES % (AUTO) 5.6 % (1.7-9.3); NEUTROPHILS # (AUTO) 13.2 K/uL (1.8-7.7); NEUTROPHILS % (AUTO) 83.5 % (42.2-75.2); PLATELET COUNT (AUTO) 247 K/uL (140-450); RED BLOOD CELL COUNT(AUTO) 3.91 MIL/uL (4.20-5.40); RED CELL DISTRIBUTION WIDTH 15.3 % (11.6-13.7); WHITE BLOOD COUNT (AUTO) 15.8 K/uL (4.8-10.8)
[2022-01-14 06:07] LABS: PROTHROMBIN TIME 10.4 secs (10.8-13.4)
[2022-01-14 06:16] LABS: ANION GAP 16.6 (8-16); CARBON DIOXIDE 19.7 mmol/L (21-32); CREATININE 2.3 mg/dL (0.6-1.3); POTASSIUM 3.3 mmol/L (3.5-5.1)
[2022-01-14] MEDS: MIDODRINE 5 MG TAB PO SCH ×4 (06:39→23:46)
[2022-01-14] MEDS: HYDROcodone/APAP 5/325 MG 1 TAB TAB PO PRN ×2 (06:39→21:44)
--- NOTE | 2022-01-14 07:21 | NUR ---
ENDORSED PATIENT TO DAY SHIFT (MARTHA RN AND MARTA SHARIF)
--- NOTE | 2022-01-14 07:30 | NUR ---
RECEIVED REPORT FROM ADVERTISING ASSISTANT MANAGER MARTA BOLIVAR.
--- NOTE | 2022-01-14 07:56 | NUR ---
PATIENT A&O X4 AND ABLE TO MAKE NEEDS KNOWN. PATIENT BREATHING WELL ON ROOM AIR AND LUNGS CLEAR TO AUSCULTATION. PATIENT ON NPO DIET FOR NEPHROSTOMY TUBE REPLACEMENT LATER TODAY. PATIENT ON SR HR 51 AND BP 117/79. PICC LINE ACCESS AT [facility]. PATIENT ON DRIP FOR LEVOPHED 2MCG/MIN AND HALF NS BICARB AT 100ML/HR. PATIENT HAS SWELLING ON LEFT HAND AND EDEMA ON BLE. PATIENT C/O OF ABD PAIN, NIGHT RN DANA GARCIA AT 0639. PATIENT PLACED ON BEDPAN FOR BM AT THIS TIME.
--- NOTE | 2022-01-14 08:06 | NUR ---
MD ORDERED TO D/C LEVOPHED LATER TODAY IF BP CONTINUOUS WITHIN NORMAL RANGE.
[2022-01-14] MEDS ORDERED: POTASSIUM CHLORIDE 10 MEQ TABER PO SCH ×2 (09:00→15:00)
[2022-01-14] MEDS ORDERED: ALBUMIN HUMAN 25% 100 ML IV SCH (09:00)
[2022-01-14] MEDS: SODIUM BICARBONATE 8.4% 100 MEQ in NACL 0.45% 1,000 ML IV SCH ×2 (09:21→21:35)
[2022-01-14] MEDS: SODIUM BICARBONATE 650 MG TAB PO SCH ×2 (09:24→21:12)
--- NOTE | 2022-01-14 10:00 | NUR ---
DR. SPARKS ORDERED TO CHANGE MIDODRINE 10MG TAB TO Q6H INSTEAD OF Q8H. DR. SPARKS ALSO ORDERED ONE TIME DOSE OF ALBUMIN HUMAN 25% 100ML AT 50ML/HR.
--- NOTE | 2022-01-14 12:29 | NUR ---
PATIENT HAD HER 2ND BM. SOFT BROWN STOOL AND MEDIUM IN SIZED.
--- NOTE | 2022-01-14 12:51 | NUR ---
DC PLANNIN YRS OLD FEMALE PATIENT WAS ADMITTED FROM HOME WITH A DX OF POP, CHEMOTHERAPY, HYPOKALEMIA. 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 LAST CHEMO SESSION WAS A MONTH AGO. CT ABD/PELVIS SHOWED LEFT MILD HYDRONEPHROSIS. ADMITTED TO ICU FOR DOPAMINE DRIP ,IVF, IV ABX ZOSYN . CONSULTED WITH [facility], CARDIO, NEPHRO AND UROLOGIST. SEEN BY DR CORBIN UROLOGIST ORDERED IR TO CHANGE BILATERAL NEPHROSTOMY TUBE. DC IRIZARRY TO RETURN HOME WHEN STABLE Addendum: 01/15/22 at 1307 by Angeles Medrano RN DC PLANNING: S/P BILATERAL NEPHROSTOMY TUBE EXCHANGED BY IR, DRAINING CLEAR YELLOW URINE. CONTINUE IV ABX MERREM. BP STABLE 104/51 CONTINUE IVF. DC PLAN TO DOWN GRADE TO TELE CM TO FOLLOW Addendum: 01/15/22 at 1759 by Angeles Medrano RN DC PLANNING: CM MET WITH PATIENT AND HER SISTER CAESAR DISCUSSED THE DC PLAN, ISSUES AND CONCERNS. PATIENT IS REQUESTING TO GO HOME WITH HOSPICE. CM CONTACTED [facility], LIANIKOLAI GOMEZ CAME TO THE HOSPITAL SPOKE WITH PATIENT AND HER SISTER HOWEVER [facility] CAN NOT PROVIDE TRANSPORT AND STATED THE DRAWSTRING KNOTTER TIME WILL BE TOMORROW AT 12 NOON PATIENT INSIST TO GO TONIGHT AND WILLING TO SIGN AMA. CM CONTACT [facility] TALKING TO PATIENT AND HER SISTER IF [facility] PROVIDE THE TRANSPORT PT WILL BE DC HOME WITH HOSPICE [facility] NOTIFIED DR KINNEY AND JONO LOZANO. CM TO FOLLOW
[2022-01-14] MEDS ORDERED: fentaNYL citrate 0.05 MG/ML VIAL ONE (13:24)
[2022-01-14] MEDS ORDERED: MIDAZOLAM 5 MG/5 ML VIAL ONE (13:24)
[2022-01-14] MEDS ORDERED: LIDOCAINE/EPI MPF 2%1:200000 10 ML VIAL INJ ONE (13:36)
--- NOTE | 2022-01-14 13:40 | NUR ---
PATIENT HAD 3RD BM. SOFT BROWN LQUID STOOL AND LARGE IN SIZE.
--- NOTE | 2022-01-14 13:55 | NUR ---
patient transferred to OR for nephrostomy replacement procedure.
[2022-01-14] MEDS ORDERED: LIDOCAINE/EPI 2% 1:100000 20 ML VIAL INJ ONE (14:13)
[2022-01-14] MEDS ORDERED: LIDOCAINE MPF 2% 100 MG/5 ML VIAL INJ ONE (14:17)
--- NOTE | 2022-01-14 15:25 | NUR ---
PATIENT RETURNED FROM OR. A&O X4.
[2022-01-14 18:27] LABS: FREE T4 (FREE THYROXINE) 0.86 ng/dL (0.76-1.46); THYROID STIMULATING HORMONE 2.18 uIU/mL (0.34-3.74)
--- NOTE | 2022-01-14 19:49 | NUR ---
REPORT GIVEN TO PUMP AND BLOWER OPERATOR NURSE SENTHIL.
--- NOTE | 2022-01-14 19:50 | NUR ---
RECEIVED ON BED, AWAKE, ALERT AND ORIENTED, ABLE TO MOVE LIMBS FREELY. BREATHING EVEN AND UNLABORED ON ROOM AIR SO2 99%. CARDIACSCOPE SHOWS ON SINUS RAFI HR 43/MIN NO ARRHYTHMIAS SEEN. IVF IN PROGRESS VIA PICC LINE RIGHT UPPER ARM IS 1/2NS WITH 100 MEQ NAHCO3 AT 100 ML/HR; INFUSING WELL.ABDOMEN IS SOFT, ACTIVE BOWEL SOUNDS. WITH NEWLY REPLACED NEPROSTOMY TUBE DRAINING CLEAR LIGHT YELLOW OUTPUT; INTACT.
--- NOTE | 2022-01-14 20:00 | NUR ---
ABLE TO TURNED AND REPOSITIONED BY HERSELF.
[2022-01-14] MEDS: CALCIUM CARBONATE 500 MG TAB.CHEW PO SCH (21:12)
--- NOTE | 2022-01-14 22:00 | NUR ---
HYPOTENSIVE BP 76/43; LEVOPHED DRIP RESTARTED AT 4MCG/MIN.
[2022-01-15] VITALS (21 sets, daily range): BP systolic 80–131; BP diastolic 43–74
[2022-01-15] MEDS: MEROPENEM 1,000 MG in NACL 0.9% 50 ML IV SCH ×2 (01:56→13:57)
--- NOTE | 2022-01-15 04:00 | NUR ---
WITH BOUTS OF DIARRHEA; KEPT CLEAN, DRY AND COMFORTABLE.
[2022-01-15] MEDS ORDERED: ATROPINE 1 MG/10 ML SYR IVP ONE (04:41)
[2022-01-15 05:23] LABS: BASOPHILS # (AUTO) 0.1 K/uL (0.00-0.22); BASOPHILS % (AUTO) 0.6 % (0.0-2.0); EOSINOPHILS # (AUTO) 0.6 K/uL (0-0.4); EOSINOPHILS % (AUTO) 3.9 % (0.0-4.0); HEMATOCRIT 35.5 % (36-48); HEMOGLOBIN 11.9 g/dL (12.0-16.0); LYMPHOCYTES # (AUTO) 1.8 K/uL (2.5-16.5); LYMPHOCYTES % (AUTO) 12.1 % (20.5-51.1); MEAN CORPUSCULAR HEMOGLOBIN 28 pg (27-31); MEAN CORPUSCULAR HGB CONC 33 g/dL (33-37); MEAN CORPUSCULAR VOLUME 84.6 fL (80-94); MONOCYTES # (AUTO) 0.9 K/uL (0.8-1.0); NEUTROPHILS # (AUTO) 11.6 K/uL (1.8-7.7); NEUTROPHILS % (AUTO) 77.4 % (42.2-75.2); PLATELET COUNT (AUTO) 250 K/uL (140-450); RED CELL DISTRIBUTION WIDTH 15.7 % (11.6-13.7)
[2022-01-15 06:03] LABS: ANION GAP 15.3 (8-16); CARBON DIOXIDE 23.5 mmol/L (21-32); CREATININE 2.1 mg/dL (0.6-1.3); POTASSIUM 3.8 mmol/L (3.5-5.1)
[2022-01-15] MEDS: HYDROcodone/APAP 5/325 MG 1 TAB TAB PO PRN ×2 (06:29→20:55)
[2022-01-15] MEDS: MIDODRINE 5 MG TAB PO SCH ×3 (06:29→17:34)
--- NOTE | 2022-01-15 07:30 | NUR ---
RECEIVED REPORT FROM VAT SKIMMER MARTA PEREZ Addendum: 01/15/22 at 1001 by Daniel Ricci RN RECEIVED REPORT FROM VAT SKIMMER NURSE SENTHLI.
--- NOTE | 2022-01-15 07:55 | NUR ---
DR. KINNEY AT BEDSIDE.
--- NOTE | 2022-01-15 07:55 | NUR ---
DR. KINNEY AT [facility]. Addendum: 01/15/22 at 1415 by Daniel Ricci RN (DUPLICATE NOTE)
--- NOTE | 2022-01-15 09:15 | NUR ---
DR. SPARKS AT BEDSIDE.
--- NOTE | 2022-01-15 09:30 | NUR ---
PATIENT ALERT AND ORIENTED X4. ABLE TO MAKE NEEDS. KNOWN LUNGS CLEAR TO AUSCULTATION. PATIENT ON ROOM AIR. SOFT RENAL DIET. PATIENT NOT EATING TOO MUCH AND ONLY LIKES TO DRINK NEPHRO AND OCCASIONAL SNACKS. BOWEL MOVEMENTS ACTIVE. RHYTHM ON SB. PERIPHERAL PULSES FELT ON ALL EXTREMITIES. CLOSE MONITORING FOR BP AND HR. PICC LINE TO BHAVYA. LEVOPHED DRIP TO 1MCG/MIN AND BICARB 8.4% TO 100ML/HR. SKIN INTACT. PATIENT EXPRESSES SADNESS PATIENT STATES "I WANT TO GO HOME". PRESCHOOL DISABILITY TEACHER EXPLAINS MEDICAL STAFF HAVE TO MAKE SURE PATIENT IS STABLE BEFORE ANY DECISIONS ARE MADE FOR HER DISCHARGE. NO OTHER COMPLAINTS AT THIS TIME.
[2022-01-15] MEDS: SODIUM BICARBONATE 650 MG TAB PO SCH ×2 (09:37→20:44)
[2022-01-15] MEDS: CALCIUM CARBONATE 500 MG TAB.CHEW PO SCH ×2 (09:37→20:54)
[2022-01-15] MEDS: SODIUM BICARBONATE 8.4% 100 MEQ in NACL 0.45% 1,000 ML IV SCH ×2 (10:20→16:54)
--- NOTE | 2022-01-15 11:30 | NUR ---
PATIENT EXPRESSED DIFFICULTY SLEEPING. MOVED PATIENT TO BED 8 FOR A MORE QUITE ENVIRONMENT.
--- NOTE | 2022-01-15 13:18 | NUR ---
PT SISTER, CAESAR, AT BEDSIDE.
--- NOTE | 2022-01-15 13:28 | NUR ---
PT ATE ABOUT 50% OF HER LUNCH.
--- NOTE | 2022-01-15 14:00 | NUR ---
DC PLANNING PATIENT IS A 61-YEAR-OLD FEMALE ADMITTED IN THE [facility]/ED ON 01/11/2022. PATIENT HAS MEDICAL HX OF CANCER ON CHEMOTHERAPY AND PENDING HEMODIALYSIS STARTING ON 01/16/2022. PATIENT WAS BROUGHT TO THE ED BY AMBULANCE WITH ACUTE SHARP LOWER BACK PAIN. LO MET WITH PATIENT AND HER SISTER CAESAR AT BEDSIDE TO DISCUSS AND GATHER HER COLLATERAL INFORMATION. PATIENT REPORTED LIVING AT HOME WITH HER MOTHER TWO SISTER AND DAUGHTER ANA RUTLEDGE IN [facility]. PER PATIENT HER DAUGHTER ANA IS HER EMERGENCY CONTACT AND ALSO HER MEDICAL DECISION MAKER FOR HER MEDICAL CARE. PATIENT REPORTED NOT HAVING A.D AND REQUESTED ALL INFORMATION FORMS PROVIDED BY LO. PATIENT STATED HAVING SOME ISSUES GETTING SOME OF HER PAIN MEDICATIONS AND WILL LIKE TO TALK ABOUT THOSE ISSUES WITH HER MD BEFORE SHE LEAVES HOME. SHE STATED THAT HAS NO ISSUES TAKING HER MEDICATIONS FROM THE [facility] IN [place] AND [facility] IN [place]. PATIENT STATED THAT SHE HAS A NO DME AT HOME; HOWEVER, WILL LIKE TO GET HOSPICE SERVICES AND GET SOME DME FOR HER CARE WHEN SHE IS DISCHARGE HOME TO BE WITH HER FAMILY. PATIENT WAS ABLE TO PROCESS FEELINGS OF LOSS AND CRY WITH HER SISTER. DURING MEETING WITH LO PATIENT WAS ABLE TO HAVE AN OPEN AND HONEST CONVERSATION ABOUT HER FEARS WITH AND LIVING HER ADULT CHILDREN BEHIND. PATIENT EXPRESS GRATITUDE FOR THE DISCUSSION AND ASK TO SPEAK TO CM ABOUT HOSPICE TO PLAN FOR DC HOME SOON POSSIBLE TO BE WITH FAMILY UNDER HOSPICE CARE AND END OF LIFE PLANING. PER PATIENT SHE WANTS TO RETURN HOME AFTER HER DC FROM [facility] AND STATED THAT HER SISTERS OR DAUGHTER WILL BE ASSISTING HER WITH TRANSPORTATION BACK HOME AFTER DC FROM [facility]. LO WILL FOLLOW UP NEEDED.
--- NOTE | 2022-01-15 14:30 | NUR ---
pt expressed wanting to go to hospice and change code status to dnr. notified dr gottlieb and consulted case management. lambert caballero following.
[2022-01-15] MEDS: NOREPINEPHRINE 8 MG in DEXTROSE 5% 250 ML IV PRN (15:11)
[2022-01-15] MEDS ORDERED: PRO5 PO (15:21)
[2022-01-15] MEDS ORDERED: SODI650T2 PO (15:21)
[2022-01-15] MEDS ORDERED: CALC200T38 PO (15:21)
--- NOTE | 2022-01-15 15:27 | NUR ---
01/15/22 RD FOLLOW UP COMPLETED PLEASE REFER TO NUTRITION ASSESSMENT UNDER CARE ACTIVITY FOR ESTIMATED NUTRITIONAL NEEDS. 1. CONTINUE RENAL DIET TOLERATED 2. CONTINUE NEPRO TID PER RD PROTOCOL -PROVIDES 1275 KCAL AND 57 GM PROTEIN 3. MONITOR PO INTAKE AND GI SYMPTOMS 4. RD TO FOLLOW-UP IN 3-5 DAYS PATIENT IS MODERATE RISK. COLLEEN DANIELLE, RD
--- NOTE | 2022-01-15 15:29 | NUR ---
PATIENT WORKING WITH PATIENT AND HER SISTER FOR A POSSIBLE DISCHARGE. Addendum: 01/15/22 at 1545 by Daniel Ricci RN RADIO EQUIPMENT REPAIRER WORKING WITH PATIENT AND HER SISTER FOR A POSSIBLE DISCHARGE.
--- NOTE | 2022-01-15 16:00 | NUR ---
DC PLANNING LO/NICK MEET WITH PATIENT AND SISTER CAESAR AT BED SIDE TO DISCUSS SERVICES SHE REQUESTED WITH HOSPICE AND ALSO DISCUSS WITH PATIENT ABOUT HER FOLLOW UP APPOINTMENTS; PATIENT DECLINED ANY SCHEDULED APPOINTMENTS SINCE SHE HAS DECIDED TO GO HOME WITH HOSPICE SHE DETERMINE THAT HER HOSPICE TEAM INCLUDING THE MD WILL BE FOLLOWING UP HER NEEDS AND COMFORT CARE AT THIS TIME. PATIENT THANKED LO FOR HER INFORMATION AND ENDED THE MEETING REQUESTING TO PRAY WITH THESE PORTFOLIO LEAD. SW WILL FOLLOW UP NEEDED.
--- NOTE | 2022-01-15 16:20 | NUR ---
dr simeon rounding at bedside, no new orders.
--- NOTE | 2022-01-15 17:00 | NUR ---
spoke with rosie jordan with [facility]. soonest they can arrange pickup for pt is tomorrow 01/16 at 1200. pt refuses, wants to go home with pt sister, lucius. will notify dr gottlieb.
--- NOTE | 2022-01-15 18:00 | NUR ---
spoke with dr gottlieb via telephone, he said that he will not discharge patient without hospice prepared and hospice pickup. pt wants to leave with sister lucius. dr gottlieb says she will have to sign ama paperwork if she goes with sister lucius. 1814 dr guillen at bedside, says he will "make it happen" and use a different hospice company, "[facility]" instead of original [facility]. ada verdin aware, arranging collaboration with [facility].
--- NOTE | 2022-01-15 19:30 | NUR ---
RECEIVED PT. FROM DAY SHIFT MARTA THOMAS. PT. WIDE AWAKE, ALERT AND ORIENTED. ON ROOM AIR WITH O2 SAT 96%. IV TO RIGHT UPPER ARM PICC LINE RUNNING NaBICARB 8.4% AT 100 ML/HR. WITH BILATERAL NEPROSTOMY TUBE. PT. SISTER CAESAR AT THE BEDSIDE.
--- NOTE | 2022-01-15 19:30 | NUR ---
REPORT GIVEN TO BULK TRUCK DRIVER NURSE ANA.
--- NOTE | 2022-01-15 19:47 | NUR ---
HOSPICE IS AT THE BEDSIDE RIGHT NOW WITH CAESAR, THE SISTER OF THE PT.TALKING ABOUT THE PLAN FOR HOSPICE. PER REPORT OF THE DAY SHIFT, DR. KINNEY DOESN'T WANT TO DISCHARGE PT. UNLESS PT. GOING TO HOSPICE DUE TO HR 40'S AND 50'S. HOWEVER PT. INSISTED TO GO HOME. PER DR. KINNEY IF PT. INSISTED TO GO HOME, SHE NEEDS TO SIGN AMA. CAESAR SISTER AWARE OF THE PT. WANTS AND OK TOO FOR AMA, IF PT. DECIDED NOT WANT TO BE ON HOSPICE.WILL CONT. TO FOLLOW-UP.
[2022-01-15] MEDS ORDERED: CALCIUM CARBONATE 500 MG TAB ONE (20:50)
--- NOTE | 2022-01-15 21:00 | NUR ---
KINJAL BA, KARISSA FROM [facility] FROM [facility] STATED THAT SHE'S DONE WITH PT. ASSESSMENT AND PT. WILL BE PICKED BY BY HOSPICE TONIGHT BETWEEN [phone] TO [phone]. PT. SISTER CAESAR AT THE BEDSIDE AND AWARE OF PT. GOING TO HOSPICE TONIGHT. HOSPICE NURSE PROVIDED REPORT. SAND SCREENER OPERATOR MADE AWARE.
--- NOTE | 2022-01-15 22:05 | NUR ---
ALL PERSONAL BELONGINGS GIVEN TO THE PT. AND SHE SIGNED THE RELEASE FORM.
--- NOTE | 2022-01-15 22:05 | NUR ---
DISCHARGED PT. TO [facility] [address] . PT. SISTER CAESAR PRESENT DURING THE DISCHARGED AND DISCHARGED PACKETS GIVEN.
--- NOTE | 2022-01-15 22:34 | NUR ---
TEXTED DR. KINNEY THAT PT. TRANSFERRED/DISCHARGED TO [facility] [address] TODAY.
== END 2022-01-15 22:05 | disposition hospice, home (50) | DRG 720 ==
LOC: MED 14:56 → MTU 18:16 → MIC 18:19 → MTU 22:16 → MIC 01-13 07:35
PROVIDERS: ADMIT Student in an Organized Health Care Education/Training Program; ATTEND Student in an Organized Health Care Education/Training Program
PROC: 30233N1 Transfusion of Nonautologous Red Blood Cells into Peripheral Vein, Percutaneous Approach (ICD-10-PCS; 2022-01-12)
PROC: 02HV33Z Insertion of Infusion Device into Superior Vena Cava, Percutaneous Approach (ICD-10-PCS; 2022-01-12)
PROC: B548ZZA Ultrasonography of Superior Vena Cava, Guidance (ICD-10-PCS; 2022-01-12)
PROC: 0T25X0Z Change Drainage Device in Kidney, External Approach (ICD-10-PCS; principal; 2022-01-14)
DX: A41.9 Sepsis, unspecified organism (principal); R65.21 Severe sepsis with septic shock; N17.9 Acute kidney failure, unspecified; E46 Unspecified protein-calorie malnutrition; C76.0 Malignant neoplasm of head, face and neck; E87.1 Hypo-osmolality and hyponatremia; R00.1 Bradycardia, unspecified; N18.9 Chronic kidney disease, unspecified; D50.9 Iron deficiency anemia, unspecified; N13.6 Pyonephrosis; Z20.822 Contact with and (suspected) exposure to COVID-19; Z93.6 Other artificial openings of urinary tract status; Z68.1 Body mass index [BMI] 19.9 or less, adult; Z80.9 Family history of malignant neoplasm, unspecified
CPT/HCPCS: 36415; 36430; 50432; 71045; 77003; 80048; 80053; 81001; 82948; 83540; 83605; 84439; 84443; 85025; 85610; 85730; 86886; 86900; 86901; 86920; 87081; 87086; 96361; 96365; 96375; 99285; C1729; J0461; J0696; J1265; J1644; J2001; J2185; J2250; J2270; J2405; J2543; J3010; J3490; J7030; J7060; P9016; P9041; P9046; Q9967